=== PATIENT | male | born 1965 | race Caucasian/White ===

== ENCOUNTER 2020-11-10 13:46 | Inpatient (IN) | payer MEDICAID ==
[~2020-11-10] VITALS: Ht 175.3 cm; Wt 75.0 kg
[~2020-11-10 13:46] MED LIST: AMIO200T6 PO; ASPI-630 PO; DICY10CA3 PO; FLUT1DIS3 IH; FURO40TA4 PO; LORA0.5T96 PO; METO50TA4 PO; PANT20TA2 PO; SACU1TAB PO; SERT25TA PO; TIOT18CA IH
[2020-11-10] MEDS ORDERED: ONDANSETRON PF 4 MG/2 ML VIAL. IVP ONE (14:15)
--- NOTE | 2020-11-10 14:41 | RAD ---
XR CHEST 1V CLINICAL INDICATIONS: Shortness of breath COMPARISON: October 2020. Findings: Persistent infiltrate is seen within the lateral left lung base which is unchanged. There i s an increase in medial right lung base infiltrate. No pleural effusion or pneumothorax is seen. 3-le ad pacemaker is again evident. The heart size, pulmonary vasculature, mediastinum and both ashtyn are s table. IMPRESSION: Increase in medial right lung base infiltrate. Persistent lateral left lung base infiltra te. Electronically signed by: Will Mercado MD (11/10/2020 2:38 PM) [id number]
[2020-11-10 14:59] LABS: BASO % 0 % (0-3); EOS % 0 % (0-3); HEMOGLOBIN 14.7 g/dL (13.0-17.5); LYMPH % 12 % (24-48); MEAN CORPUSCULAR HEMOGLOBIN 33 pg (25-35); MEAN CORPUSCULAR HGB CONC 34 g/dL (31-37); MEAN CORPUSCULAR VOLUME 97 fL (79-100); MONO # 0.6 x10^3/uL (0.0-1.1); MONO % 7 % (0-9); NEUT # 7.1 x10^3/uL (1.8-7.7); NEUT % 80 % (31-73); PLATELET COUNT 264 x10^3/uL (140-400); RED BLOOD COUNT 4.52 x10^6/uL (4.30-5.70); RED CELL DISTRIBUTION WIDTH 13.2 % (11.5-14.5); WHITE BLOOD COUNT 8.9 x10^3/uL (4.0-11.0)
[2020-11-10 15:30] LABS: CALCIUM 9.4 mg/dL (8.5-10.1); CREATININE 1.3 mg/dL (0.7-1.3); GFR 57.5; POTASSIUM 5.5 mmol/L (3.5-5.1)
[2020-11-10 15:36] LABS: ALBUMIN 3.7 g/dL (3.4-5.0); ALBUMIN/GLOBULIN RATIO 1.1 (1.0-1.7); MAGNESIUM 2.2 mg/dL (1.8-2.4); TOTAL BILIRUBIN 0.8 mg/dL (0.2-1.0); TOTAL PROTEIN 7.2 g/dL (6.4-8.2)
--- NOTE | 2020-11-10 16:11 | PHYS DOC ---
Past Medical History Past Medical History: A-Fib, CAD, CHF (EF 25-30% (11/19)) Past Surgical History: Other Additional Past Surgical Histo: AICD/BACK/NECK Smoking Status: Current Every Day Smoker Alcohol Use: Heavy Drug Use: None General Adult EDM: Chief Complaint: SHORTNESS OF BREATH HPI: HPI: Patient is a 55 year old male with history of CAD, CHF EF 25-30% who presents w ith shortness of breath and chest pain. Patient states that the chest pain has been ongoing since before he was admitted in early October. He was discharged on 11/06. He was admitted for an ICD discharge it was found to be A. fib with RVR. He was initiated on amiodarone, continued on metoprolol and his home furosemide. 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 States that his shortness of breath is continuously worsened. He did feel warm, and has nausea, vomiting. No documented fevers. He has had some chills. Review of Systems: Review of Systems: Constitutional: Denies fever or chills. [] Eyes: Denies change in visual acuity. [] HENT: Reports nasal congestion. Denies sore throat [] Respiratory: Reports cough and shortness of breath [] Cardiovascular: Reports chest pain. Reports lower extremity edema.. [] GI: Reports nausea and vomiting. Denies abdominal pain, bloody stools or diarrhea. [] : Denies dysuria. [] Musculoskeletal: Denies back pain or joint pain. [] Integument: Denies rash. [] Neurologic: Denies headache, focal weakness or sensory changes. [] Endocrine: Denies polyuria or polydipsia. [] Lymphatic: Denies swollen glands. [] Psychiatric: Denies depression or anxiety. [] Heart Score: C/O Chest Pain: Yes HEART Score for Chest Pain: HEART Score for Chest Pain Response (Comments) Value History Moderately Suspicious 1 ECG Nonspecific Repolarizatio 1 Age >45 - < 65 1 Risk Factors >3 Risk Factors or Hx CAD 2 Troponin < Normal Limit 0 Total 5 Risk Factors: Risk Factors: DM, Current or recent (<one month) smoker, HTN, HLP, family history of CAD, obesity. Risk Scores: Score 0 - 3: 2.5% MACE over next 6 weeks - Discharge Home Score 4 - 6: 20.3% MACE over next 6 weeks - Admit for Clinical Observation Score 7 - 10: 72.7% MACE over next 6 weeks - Early Invasive Strategies Current Medications: Current Medications Medications (Trade) Dose Ordered Sig/Emma Start Time Stop Time Status Last Admin Dose Admin Ondansetron HCl (Zofran) 4 mg 1X ONCE 11/10/20 14:15 11/10/20 14:16 DC Allergies: Allergies: Allergies Coded Allergies Type Severity Reaction Last Updated Verified No Known Drug Allergies 10/31/20 No Physical Exam: PE: Constitutional: Appears unwell. Retching/dry heaving. [] HENT: Normocephalic, atraumatic, bilateral external ears normal, oropharynx moist, no oral exudates, nose normal. [] Eyes: PERRLA, EOMI, conjunctiva normal, no discharge. [] Neck: Normal range of motion, no tenderness, supple, no stridor. [] Cardiovascular:Heart rate regular rhythm, no murmur [] Lungs & Thorax: B/l crackles in bases. Normal work of breathing. [] Abdomen: Soft, nontender [] Skin: Warm, dry, no erythema, no rash. [] Back: No tenderness, no CVA tenderness. [] Extremities: No tenderness, no cyanosis, no clubbing, ROM intact, + bilateral lower extremity edema. [] Neurologic: Alert and oriented X 3, normal motor function, normal sensory function, no focal deficits noted. [] Psychologic: Affect normal, judgement normal, mood normal. [] Current Patient Data: Labs: Laboratory Tests Test 11/10/20 14:47 11/10/20 15:15 White Blood Count 8.9 x10^3/uL (4.0-11.0) Red Blood Count 4.52 x10^6/uL (4.30-5.70) Hemoglobin 14.7 g/dL (13.0-17.5) Hematocrit 44.0 % (39.0-53.0) Mean Corpuscular Volume 97 fL (79-100) Mean Corpuscular Hemoglobin 33 pg (25-35) Mean Corpuscular Hemoglobin Concent 34 g/dL (31-37) Red Cell Distribution Width 13.2 % (11.5-14.5) Platelet Count 264 x10^3/uL (140-400) Neutrophils (%) (Auto) 80 % (31-73) H Lymphocytes (%) (Auto) 12 % (24-48) L Monocytes (%) (Auto) 7 % (0-9) Eosinophils (%) (Auto) 0 % (0-3) Basophils (%) (Auto) 0 % (0-3) Neutrophils # (Auto) 7.1 x10^3/uL (1.8-7.7) Lymphocytes # (Auto) 1.0 x10^3/uL (1.0-4.8) Monocytes # (Auto) 0.6 x10^3/uL (0.0-1.1) Eosinophils # (Auto) 0.0 x10^3/uL (0.0-0.7) Basophils # (Auto) 0.0 x10^3/uL (0.0-0.2) Sodium Level 139 mmol/L (136-145) Potassium Level 5.5 mmol/L (3.5-5.1) H Chloride Level 102 mmol/L (98-107) Carbon Dioxide Level 30 mmol/L (21-32) Anion Gap 7 (6-14) Blood Urea Nitrogen 25 mg/dL (8-26) Creatinine 1.3 mg/dL (0.7-1.3) Estimated GFR (Cockcroft-Gault) 57.5 BUN/Creatinine Ratio 19 (6-20) Glucose Level 122 mg/dL (70-99) H Calcium Level 9.4 mg/dL (8.5-10.1) Magnesium Level 2.2 mg/dL (1.8-2.4) Total Bilirubin 0.8 mg/dL (0.2-1.0) Aspartate Amino Transferase (AST) 56 U/L (15-37) H Alanine Aminotransferase (ALT) 76 U/L (16-63) H Alkaline Phosphatase 85 U/L (46-116) Troponin I Quantitative 0.030 ng/mL (0.000-0.055) JT-Ieg-J-Type Natriuretic Peptide 28127 pg/mL (0-124) H Total Protein 7.2 g/dL (6.4-8.2) Albumin 3.7 g/dL (3.4-5.0) Albumin/Globulin Ratio 1.1 (1.0-1.7) Laboratory Tests 11/10/20 14:47 Laboratory Tests 11/10/20 15:15 Vital Signs: Vital Signs Date Time Temp Pulse Resp B/P (MAP) Pulse Ox O2 Delivery O2 Flow Rate FiO2 11/10/20 14:15 98.6 86 25 121/73 (89) 96 Nasal Cannula 2.0 98.6 EKG: EKG: Paced rhythm [] Radiology/Procedures: Radiology/Procedures: [][facility] [address] [place] [address] IMAGING REPORT Signed PATIENT: RUPERTO JEAN-BAPTISTE ACCOUNT: [id number] : 1965 LOCATION: ER AGE: 55 SEX: M EXAM STATUS: REG ER ORD. PHYSICIAN: SANG BARTON MD REASON: sob PROCEDURE: CHEST AP ONLY XR CHEST 1V CLINICAL INDICATIONS: Shortness of breath COMPARISON: October 2020. Findings: Persistent infiltrate is seen within the lateral left lung base which is unchanged. There is an increase in medial right lung base infiltrate. No pleural effusion or pneumothorax is seen. 3-lead pacemaker is again evident. The heart size, pulmonary vasculature, mediastinum and both ashtyn are stable. IMPRESSION: Increase in medial right lung base infiltrate. Persistent lateral left lung base infiltrate. Electronically signed by: Shawn Mercado MD (11/10/2020 2:38 PM) [id number] DICTATED and SIGNED BY: SHAWN MERCADO MD DATE: 11/10/20 [id number] Course & Med Decision Making: Course & Med Decision Making Pertinent Labs and Imaging studies reviewed. (See chart for details) Patient 55-year-old male with history of CAD, CHF with EF 25-30%, recent hospitalization for ICD discharges turned out to be A. fib with RVR recently started on amiodarone who presents with chest pain and shortness of breath. Shortness of breath is increased since he was discharged from the hospital on 11/06. Satting 87% on room air. Recovered to 90+ percent on 2 L/min nasal cannula. Chest x-ray appears more congested than previously. Working on IV access, but will dose with Lasix. We will trend troponin. First troponin below cutoff for NSTEMI. EKG paced. Will check Covid rapid and PCR. Given some constitutional symptoms feel he should be in a Covid PUI to begin. Re Disclaimer: Re Disclaimer: This electronic medical record was generated, in whole or in part, using a voice recognition dictation system. Departure Departure Impression: Primary Impression: Chest pain Additional Impression: Hypoxia Disposition: ADMITTED INPATIENT Admitting Physician: MARBELLA Pineda) Condition: STABLE Referrals: NO PCP (PCP) SANG BARTON MD Nov 10, 2020 16:11
[2020-11-10] MEDS ORDERED: CALCIUM CARBONATE 500 MG TAB.CHEW PO PRN (16:15)
[2020-11-10] MEDS ORDERED: ELECTROLYTE (NON-ICU) PROTOCOL. MC PRN (16:15)
[2020-11-10] MEDS: oxyCODONE/APAP 5/325 1 TAB TABLET PO PRN ×2 (16:52→20:40)
[2020-11-10 17:00] VITALS: BP 105/62
--- NOTE | 2020-11-10 17:02 | PDOC1 ---
History and Physical Date of Service: DOS: DATE: 11/10/20 TIME: 16:52 Chief Complaint: Problems: (1) Chest pain (2) Hypoxia (3) Shortness of breath Chief Complain: Chest pain, shortness of breath History of Present Illness: HPI: Patient is a 55-year-old male presenting today due to worsening shortness of breath and chest pain. Patient was recently admitted after he thought his ICD fired. He was here for several days and was found to be atrial fibrillation with RVR. 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 He was able to get his Lopressor and Lasix. History notable for CAD, CHF ejection fraction 25%. Patient says his chest pain has persisted since last admission. 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 Denies any sort of productive cough or fevers. Patient presented the emergency room found to be relatively fluid overloaded, patient also had a 2 L oxygen requirement after he was found to be saturating mid 80s on room air. Patient was denying any sort of headache, vision changes, abdominal pain, joint pain, dysuria. Past Medical/Surgical History: PMH/PSH: A. fib, CAD, CHF 25% ejection fraction Allergies: Allergies: Coded Allergies: No Known Drug Allergies (Unverified , 10/31/20) Family History: Family History: CAD, hypertension Social History: Social History: Smoker, frequent alcohol use, denies drug use Current Medications: Current Medications Current Medications Ondansetron HCl (Zofran) 4 mg 1X ONCE IVP Last administered on 11/10/20at 16:20; Start 11/10/20 at 14:15; Stop 11/10/20 at 14:16; Status DC Amiodarone HCl (Cordarone) 200 mg DAILY PO ; Start 11/11/20 at 09:00 Aspirin (Aspirin Chewable) 81 mg DAILY PO ; Start 11/11/20 at 09:00 Furosemide (Lasix) 40 mg DAILY PO ; Start 11/11/20 at 09:00 Lorazepam (Ativan) 0.5 mg PRN TID PRN PO ANXIETY / AGITATION; Start 11/10/20 at 16:15 Metoprolol Succinate (Toprol Xl) 75 mg DAILY PO ; Start 11/11/20 at 09:00 Sacubitril/ Valsartan (Entresto 24 Mg-26 Mg) 1 tab BID PO ; Start 11/10/20 at 21:00 Sertraline HCl (Zoloft) 25 mg DAILY PO ; Start 11/11/20 at 09:00 Non-Formulary Medication (Fluticasone/ Salmeterol (Advair 250-50 Diskus)) 1 puff BID IH ; Start 11/10/20 at 21:00; Status UNV Pantoprazole Sodium (Protonix) 40 mg DAILYAC PO ; Start 11/11/20 at 07:30 Non-Formulary Medication (Tiotropium Bath (Spiriva)) 1 cap DAILY IH ; Start 11/11/20 at 09:00; Status UNV Ondansetron HCl (Zofran) 4 mg PRN Q6HRS PRN IVP NAUSEA/VOMITING; Start 11/10/20 at 16:15 Calcium Carbonate/ Glycine (Tums) 500 mg PRN Q3HRS PRN PO UPSET STOMACH; Start 11/10/20 at 16:15 Zolpidem Tartrate (Ambien) 5 mg PRN QHS PRN PO INSOMNIA, MAY REPEAT IN 1HR; Start 11/10/20 at 16:15 Info (Non-Icu Electrolyte Protocol) 1 ea PRN DAILY PRN MC SEE COMMENTS; Start 11/10/20 at 16:15 Oxycodone HCl (Roxicodone) 5 mg PRN Q3HRS PRN PO BREAKTHROUGH PAIN; Start 11/10/20 at 16:15 Oxycodone/ Acetaminophen (Percocet 5/325) 1 tab PRN Q4HRS PRN PO MILD PAIN, 1ST CHOICE; Start 11/10/20 at 16:15 Oxycodone/ Acetaminophen (Percocet 5/325) 2 tab PRN Q4HRS PRN PO MODERATE PAIN, SEVERE PAIN; Start 11/10/20 at 16:15 Acetaminophen (Tylenol) 650 mg PRN Q6HRS PRN PO Headaches, Temp > 101.5F; Start 11/10/20 at 16:15 Senna/Docusate Sodium (Senna Plus) 1 tab BID PO ; Start 11/10/20 at 21:00 Enoxaparin Sodium (Lovenox 40mg Syringe) 40 mg Q24H SQ ; Start 11/10/20 at 21:00 Albuterol/ Ipratropium (Duoneb) 3 ml RTQID NEB ; Start 11/10/20 at 20:00 Budesonide (Pulmicort) 0.5 mg RTBID NEB ; Start 11/10/20 at 20:00 Active Scripts Active Ativan (Lorazepam) 0.5 Mg Tablet 0.5 Mg PO TID PRN 28 Days Amiodarone Hcl 200 Mg Tablet 200 Mg PO DAILY 30 Days Dicyclomine Hcl 10 Mg Capsule 10 Mg PO PRN QID PRN 14 Days Spiriva (Tiotropium Bath) 18 Mcg Cap.w.dev 1 Cap IH DAILY 30 Days Entresto 24 mg-26 mg Tablet (Sacubitril/Valsartan) 1 Each Tablet 1 Each PO BID 30 Days Advair 250-50 Diskus (Fluticasone/Salmeterol) 1 Each Disk.w.dev 1 Puff IH BID 30 Days Zoloft (Sertraline Hcl) 25 Mg Tablet 1 Tab PO DAILY 30 Days Protonix (Pantoprazole Sodium) 20 Mg Tablet.dr 2 Tab PO DAILY 30 Days Toprol XL (Metoprolol Succinate) 50 Mg Tab.er.24h 75 Mg PO DAILY 30 Days Furosemide 40 Mg Tablet 1 Tab PO DAILY 30 Days Reported Aspirin 81 Mg Tab.chew 1 Tab PO DAILY ROS: Review of Systems Review of System Negative unless noted in HPI Physical Exam: Vital Signs: Vital Signs Date Time Temp Pulse Resp B/P (MAP) Pulse Ox O2 Delivery O2 Flow Rate FiO2 11/10/20 15:40 84 30 117/66 (83) 96 Nasal Cannula 2.0 11/10/20 14:15 98.6 98.6 Physcial Exam: GEN: Mild distress HEENT: Normal cephalic, atraumatic, external auditory canals are patent EYES: Extraocular muscles are intact, pupil are equally round and reactive to light and accommodation MUSCULOSKELETAL: Well developed , well nourished, good range of motion ENDOCRINE: No thyromegaly was palpated LYMPHATICS: No cervical chain or axillary nodes were noted HEMATOPOIETIC: No bruising NECK: Supple, no JVD, no thyromegaly was noted LUNGS: Bibasilar crackles HEART: Irregularly irregular, peripheral pulses intact ABDOMEN: Soft, nontender. Positive bowel sounds, no organomegaly, normal bowel sounds EXTREMITIES: Bilateral lower extremity pitting edema NEUROLOGIC: Normal speech and tone. A&O x 3, moves all extremities, no obvious focal deficits PSYCHIATRIC: Normal affect, normal mood. Stable SKIN: No ulcerations or rashes, good skin turgor, no jaundice VASCULAR: Good capillary refill, neurovascular bundle appears to be intact Labs: Labs: Laboratory Tests Test 11/10/20 14:47 11/10/20 15:15 White Blood Count 8.9 x10^3/uL (4.0-11.0) Red Blood Count 4.52 x10^6/uL (4.30-5.70) Hemoglobin 14.7 g/dL (13.0-17.5) Hematocrit 44.0 % (39.0-53.0) Mean Corpuscular Volume 97 fL (79-100) Mean Corpuscular Hemoglobin 33 pg (25-35) Mean Corpuscular Hemoglobin Concent 34 g/dL (31-37) Red Cell Distribution Width 13.2 % (11.5-14.5) Platelet Count 264 x10^3/uL (140-400) Neutrophils (%) (Auto) 80 % (31-73) Lymphocytes (%) (Auto) 12 % (24-48) Monocytes (%) (Auto) 7 % (0-9) Eosinophils (%) (Auto) 0 % (0-3) Basophils (%) (Auto) 0 % (0-3) Neutrophils # (Auto) 7.1 x10^3/uL (1.8-7.7) Lymphocytes # (Auto) 1.0 x10^3/uL (1.0-4.8) Monocytes # (Auto) 0.6 x10^3/uL (0.0-1.1) Eosinophils # (Auto) 0.0 x10^3/uL (0.0-0.7) Basophils # (Auto) 0.0 x10^3/uL (0.0-0.2) Sodium Level 139 mmol/L (136-145) Potassium Level 5.5 mmol/L (3.5-5.1) Chloride Level 102 mmol/L (98-107) Carbon Dioxide Level 30 mmol/L (21-32) Anion Gap 7 (6-14) Blood Urea Nitrogen 25 mg/dL (8-26) Creatinine 1.3 mg/dL (0.7-1.3) Estimated GFR (Cockcroft-Gault) 57.5 BUN/Creatinine Ratio 19 (6-20) Glucose Level 122 mg/dL (70-99) Calcium Level 9.4 mg/dL (8.5-10.1) Magnesium Level 2.2 mg/dL (1.8-2.4) Total Bilirubin 0.8 mg/dL (0.2-1.0) Aspartate Amino Transf (AST/SGOT) 56 U/L (15-37) Alanine Aminotransferase (ALT/SGPT) 76 U/L (16-63) Alkaline Phosphatase 85 U/L (46-116) Troponin I Quantitative 0.030 ng/mL (0.000-0.055) GT-Gjd-B-Type Natriuretic Peptide 82454 pg/mL (0-124) Total Protein 7.2 g/dL (6.4-8.2) Albumin 3.7 g/dL (3.4-5.0) Albumin/Globulin Ratio 1.1 (1.0-1.7) Laboratory Tests Test 11/10/20 14:47 11/10/20 15:15 White Blood Count 8.9 x10^3/uL (4.0-11.0) Red Blood Count 4.52 x10^6/uL (4.30-5.70) Hemoglobin 14.7 g/dL (13.0-17.5) Hematocrit 44.0 % (39.0-53.0) Mean Corpuscular Volume 97 fL (79-100) Mean Corpuscular Hemoglobin 33 pg (25-35) Mean Corpuscular Hemoglobin Concent 34 g/dL (31-37) Red Cell Distribution Width 13.2 % (11.5-14.5) Platelet Count 264 x10^3/uL (140-400) Neutrophils (%) (Auto) 80 % (31-73) Lymphocytes (%) (Auto) 12 % (24-48) Monocytes (%) (Auto) 7 % (0-9) Eosinophils (%) (Auto) 0 % (0-3) Basophils (%) (Auto) 0 % (0-3) Neutrophils # (Auto) 7.1 x10^3/uL (1.8-7.7) Lymphocytes # (Auto) 1.0 x10^3/uL (1.0-4.8) Monocytes # (Auto) 0.6 x10^3/uL (0.0-1.1) Eosinophils # (Auto) 0.0 x10^3/uL (0.0-0.7) Basophils # (Auto) 0.0 x10^3/uL (0.0-0.2) Sodium Level 139 mmol/L (136-145) Potassium Level 5.5 mmol/L (3.5-5.1) Chloride Level 102 mmol/L (98-107) Carbon Dioxide Level 30 mmol/L (21-32) Anion Gap 7 (6-14) Blood Urea Nitrogen 25 mg/dL (8-26) Creatinine 1.3 mg/dL (0.7-1.3) Estimated GFR (Cockcroft-Gault) 57.5 BUN/Creatinine Ratio 19 (6-20) Glucose Level 122 mg/dL (70-99) Calcium Level 9.4 mg/dL (8.5-10.1) Magnesium Level 2.2 mg/dL (1.8-2.4) Total Bilirubin 0.8 mg/dL (0.2-1.0) Aspartate Amino Transf (AST/SGOT) 56 U/L (15-37) Alanine Aminotransferase (ALT/SGPT) 76 U/L (16-63) Alkaline Phosphatase 85 U/L (46-116) Troponin I Quantitative 0.030 ng/mL (0.000-0.055) PZ-Ulx-X-Type Natriuretic Peptide 44936 pg/mL (0-124) Total Protein 7.2 g/dL (6.4-8.2) Albumin 3.7 g/dL (3.4-5.0) Albumin/Globulin Ratio 1.1 (1.0-1.7) Assessment/Plan Assessment/Plan Chest pain and shortness of breath secondary to HFrEF 25%, medication noncompliance, tobacco abuse CAD, hypertension -Patient recently admitted for A. 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 -Consult to cardiology -Cardiac diet -Smoking cessation provided -DVT prophylaxis Justifications for Admission Other Justification TREE SANTOS MD Nov 10, 2020 17:02
--- NOTE | 2020-11-10 18:51 | EKG ---
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
[2020-11-10 19:38] VITALS: BP 135/54
[2020-11-10] MEDS ORDERED: BUDESONIDE 0.5 MG/2 ML NEBU. NEB SCH (20:00)
[2020-11-10] MEDS ORDERED: IPRATRPIUM/ALBUTEROL 0.5/2.5MG 3 ML NEBU. NEB SCH (20:00)
[2020-11-10] MEDS: ENOXAPARIN 40 MG/0.4 ML SYRINGE. SQ SCH (20:39)
[2020-11-10] MEDS: SACUBITRIL/VALSARTAN 24/26MG TABLET. PO SCH (20:39)
[2020-11-10] MEDS: ZOLPIDEM 5 MG TABLET. PO PRN (20:39)
[2020-11-10] MEDS: SENNOSIDES/DOCUSATE 8.6/50MG TABLET. PO SCH (20:39)
[2020-11-10] MEDS: oxyCODONE IR 5 MG TABLET PO PRN (20:40)
[2020-11-10] MEDS: FLUTICASONE/VILANTEROL 100/25 INHALER. INH SCH (21:00)
[2020-11-10] MEDS ORDERED: NON FORMULARY ITEM (Fluticasone/Salmeterol (Advair 250-50 Diskus) 1 PUFF) IH SCH (21:00)
[2020-11-10 23:08] VITALS: BP 105/64
[2020-11-11 02:50] VITALS: BP 114/64
[2020-11-11 07:00] VITALS: BP 108/65
[2020-11-11] MEDS: FLUTICASONE/VILANTEROL 100/25 INHALER. INH SCH (09:00)
[2020-11-11] MEDS ORDERED: NON FORMULARY ITEM (Tiotropium Bromide (Spiriva) 1 CAP) IH SCH (09:00)
[2020-11-11] MEDS: FUROSEMIDE 40 MG TABLET. PO SCH (09:25)
[2020-11-11] MEDS: SENNOSIDES/DOCUSATE 8.6/50MG TABLET. PO SCH ×2 (09:25→22:29)
[2020-11-11] MEDS: AMIODARONE HCL 200 MG TABLET. PO SCH (09:25)
[2020-11-11] MEDS: SERTRALINE 25 MG TABLET. PO SCH (09:25)
[2020-11-11] MEDS: SACUBITRIL/VALSARTAN 24/26MG TABLET. PO SCH (09:25)
[2020-11-11] MEDS: PANTOPRAZOLE 40 MG TABLET.DR. PO SCH (09:26)
[2020-11-11] MEDS: METOPROLOL SUCC 24HR ER 25 MG TAB.ER.24H. PO SCH (09:26)
[2020-11-11] MEDS: ASPIRIN CHEWABLE 81 MG TABLET. PO SCH (09:26)
--- NOTE | 2020-11-11 10:12 | PDOC ---
PROGRESS NOTES Date of Service: DATE: 11/11/20 TIME: 10:12 Chief Complaint Chief Complaint impression A. fib, CAD, k= 5.5 CHF 25% ejection fraction Patient recently admitted for APayal knapp, ejection fraction around 25% / biventricular ICD/DIFFERENTIAL REPAIRER-D implantation. Device check / normal function. 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 Consult cardiology Cardiac diet Smoking cessation encouraged / provided DVT prophylaxis History of Present Illness History of Present Illness Chief Complaint: Problems: (1) Chest pain (2) Hypoxia (3) Shortness of breath Chief Complain: Chest pain, shortness of breath History of Present Illness: HPI: Patient is a 55-year-old male presenting today due to worsening shortness of b reath and chest pain. Patient was recently admitted after he thought his ICD fired. He was here for several days and was found to be atrial fibrillation with RVR. 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 He was able to get his Lopressor and Lasix. History notable for CAD, CHF ejection fraction 25%. Patient says his chest pain has persisted since last admission. 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 Denies any sort of productive cough or fevers. Patient presented the emergency room found to be relatively fluid overloaded, patient also had a 2 L oxygen requirement after he was found to be saturating mid 80s on room air. Patient was denying any sort of headache, vision changes, abdominal pain, joint pain, dysuria. Past Medical/Surgical History: PMH/PSH: A. fib, CAD, CHF 25% ejection fraction Allergies: Allergies: Coded Allergies: No Known Drug Allergies (Unverified , 10/31/20) Family History: Family History: CAD, hypertension Social History: Social History: Smoker, frequent alcohol use, denies drug use Current Medications: Current Medications Current Medications Ondansetron HCl (Zofran) 4 mg 1X ONCE IVP Last administered on 11/10/20at 16:20; Start 11/10/20 at 14:15; Stop 11/10/20 at 14:16; Status DC Amiodarone HCl (Cordarone) 200 mg DAILY PO ; Start 11/11/20 at 09:00 Aspirin (Aspirin Chewable) 81 mg DAILY PO ; Start 11/11/20 at 09:00 Furosemide (Lasix) 40 mg DAILY PO ; Start 11/11/20 at 09:00 Lorazepam (Ativan) 0.5 mg PRN TID PRN PO ANXIETY / AGITATION; Start 11/10/20 at 16:15 Metoprolol Succinate (Toprol Xl) 75 mg DAILY PO ; Start 11/11/20 at 09:00 Sacubitril/ Valsartan (Entresto 24 Mg-26 Mg) 1 tab BID PO ; Start 11/10/20 at 21:00 Sertraline HCl (Zoloft) 25 mg DAILY PO ; Start 11/11/20 at 09:00 Non-Formulary Medication (Fluticasone/ Salmeterol (Advair 250-50 Diskus)) 1 puff BID IH ; Start 11/10/20 at 21:00; Status UNV Pantoprazole Sodium (Protonix) 40 mg DAILYAC PO ; Start 11/11/20 at 07:30 Non-Formulary Medication (Tiotropium Schuyler (Spiriva)) 1 cap DAILY IH ; Start 11/11/20 at 09:00; Status UNV Ondansetron HCl (Zofran) 4 mg PRN Q6HRS PRN IVP NAUSEA/VOMITING; Start 11/10/20 at 16:15 Calcium Carbonate/ Glycine (Tums) 500 mg PRN Q3HRS PRN PO UPSET STOMACH; Start 11/10/20 at 16:15 Zolpidem Tartrate (Ambien) 5 mg PRN QHS PRN PO INSOMNIA, MAY REPEAT IN 1HR; Start 11/10/20 at 16:15 Info (Non-Icu Electrolyte Protocol) 1 ea PRN DAILY PRN MC SEE COMMENTS; Start 11/10/20 at 16:15 Oxycodone HCl (Roxicodone) 5 mg PRN Q3HRS PRN PO BREAKTHROUGH PAIN; Start 11/10/20 at 16:15 Oxycodone/ Acetaminophen (Percocet 5/325) 1 tab PRN Q4HRS PRN PO MILD PAIN, 1ST CHOICE; Start 9/12/21 at 16:15 Oxycodone/ Acetaminophen (Percocet 5/325) 2 tab PRN Q4HRS PRN PO MODERATE PAIN, SEVERE PAIN; Start 11/10/20 at 16:15 Acetaminophen (Tylenol) 650 mg PRN Q6HRS PRN PO Headaches, Temp > 101.5F; Start 11/10/20 at 16:15 Senna/Docusate Sodium (Senna Plus) 1 tab BID PO ; Start 11/10/20 at 21:00 Enoxaparin Sodium (Lovenox 40mg Syringe) 40 mg Q24H SQ ; Start 11/10/20 at 21:00 Albuterol/ Ipratropium (Duoneb) 3 ml RTQID NEB ; Start 11/10/20 at 20:00 Budesonide (Pulmicort) 0.5 mg RTBID NEB ; Start 11/10/20 at 20:00 Active Scripts Active Ativan (Lorazepam) 0.5 Mg Tablet 0.5 Mg PO TID PRN 28 Days Amiodarone Hcl 200 Mg Tablet 200 Mg PO DAILY 30 Days Dicyclomine Hcl 10 Mg Capsule 10 Mg PO PRN QID PRN 14 Days Spiriva (Tiotropium Schuyler) 18 Mcg Cap.w.dev 1 Cap IH DAILY 30 Days Entresto 24 mg-26 mg Tablet (Sacubitril/Valsartan) 1 Each Tablet 1 Each PO BID 30 Days Advair 250-50 Diskus (Fluticasone/Salmeterol) 1 Each Disk.w.dev 1 Puff IH BID 30 Days Zoloft (Sertraline Hcl) 25 Mg Tablet 1 Tab PO DAILY 30 Days Protonix (Pantoprazole Sodium) 20 Mg Tablet.dr 2 Tab PO DAILY 30 Days Toprol XL (Metoprolol Succinate) 50 Mg Tab.er.24h 75 Mg PO DAILY 30 Days Furosemide 40 Mg Tablet 1 Tab PO DAILY 30 Days Reported Aspirin 81 Mg Tab.chew 1 Tab PO DAILY ROS: Review of Systems Review of System Negative unless noted in HPI 9-13 labs pending covid neg A. fib, CAD, CHF 25% ejection fraction Patient recently admitted for A. fib, ejection fraction around 25% / biventricular ICD/DIFFERENTIAL REPAIRER-D implantation. Device check / normal function. 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 Consult cardiology Cardiac diet Smoking cessation encouraged / provided Vitals Vitals Vital Signs Date Time Temp Pulse Resp B/P (MAP) Pulse Ox O2 Delivery O2 Flow Rate FiO2 11/11/20 09:26 85 108/65 11/11/20 07:00 97.7 22 95 Room Air 97.7 11/11/20 02:50 2.0 Physical Exam Physical Exam GEN: Mild distress HEENT: Normal cephalic, atraumatic, external auditory canals are patent EYES: Extraocular muscles are intact, pupil are equally round and reactive to light and accommodation MUSCULOSKELETAL: Well developed , well nourished, good range of motion ENDOCRINE: No thyromegaly was palpated LYMPHATICS: No cervical chain or axillary nodes were noted HEMATOPOIETIC: No bruising NECK: Supple, no JVD, no thyromegaly was noted LUNGS: Bibasilar crackles HEART: Irregularly irregular, peripheral pulses intact ABDOMEN: Soft, nontender. Positive bowel sounds, no organomegaly, normal bowel sounds EXTREMITIES: Bilateral lower extremity pitting edema NEUROLOGIC: Normal speech and tone. A&O x 3, moves all extremities, no obvious focal deficits PSYCHIATRIC: Normal affect, normal mood. Stable SKIN: No ulcerations or rashes, good skin turgor, no jaundice VASCULAR: Good capillary refill, neurovascular bundle appears to be intact General: Alert, Oriented X3, Cooperative Heart: Regular rate Lungs: Clear Abdomen: Normal bowel sounds, Soft Extremities: No clubbing, No cyanosis Labs LABS talk about your own wishes for healthcare in case youre ever not able to tell your loved ones or healthcare team what your wishes are. If you became really s ick tomorrow, would your loved ones or healthcare team know what your wishes were? Here are some examples of different sets of goals and health care directives for your conversations: My wish is to use all medical therapies including resuscitation (such as CPR) and artificial life-sustaining treatments (such as machines and medicine) in an intensive care unit, to keep me alive if at all possible. My wish is to live as long as possible, but I dont want attempts to bring me back to life if my heart and breathing stop. I would like full medical care but without using resuscitation or artificial life-sustaining intensive treatments, if these are unlikely to make me live longer or restore me to a certain quality of life. I will accept treatments that try to fix medical problems, but if Im not getting better or going to have a certain quality of life, I would want to switch to focusing only on my comfort and letting my happen naturally. My wish is for healthcare to focus on my comfort and lessen suffering. I would like medical care that focuses only on my quality of life and that allows me to naturally. Consider: What does a good quality of life mean for me? For many people, it is the ability to live independently and tell their own story. I may define it differently. Under what circumstances would I not want to be kept alive by medical treatments, resuscitation, or intensive care? What kind of changes to my health or life might make me change my mind? If I clearly am facing the last chapter of my life, how do I want the story to end? Who do I want to speak for me if I cant speak for myself? Do they understand my preferences? Are they willing to assume the role of my Durable Power of Ripshear Operator? Can I change my Goals of Care Designation? Yes, your Goals of Care Designation can be changed at any time. It should be reviewed if: your health condition changes your circumstances change (such as new understanding) you are transferred or admitted to another healthcare setting dpoa review, to pt portal 18 min and question review Laboratory Tests Test 11/10/20 14:47 11/10/20 15:15 11/10/20 16:28 White Blood Count 8.9 x10^3/uL (4.0-11.0) Red Blood Count 4.52 x10^6/uL (4.30-5.70) Hemoglobin 14.7 g/dL (13.0-17.5) Hematocrit 44.0 % (39.0-53.0) Mean Corpuscular Volume 97 fL (79-100) Mean Corpuscular Hemoglobin 33 pg (25-35) Mean Corpuscular Hemoglobin Concent 34 g/dL (31-37) Red Cell Distribution Width 13.2 % (11.5-14.5) Platelet Count 264 x10^3/uL (140-400) Neutrophils (%) (Auto) 80 % (31-73) Lymphocytes (%) (Auto) 12 % (24-48) Monocytes (%) (Auto) 7 % (0-9) Eosinophils (%) (Auto) 0 % (0-3) Basophils (%) (Auto) 0 % (0-3) Neutrophils # (Auto) 7.1 x10^3/uL (1.8-7.7) Lymphocytes # (Auto) 1.0 x10^3/uL (1.0-4.8) Monocytes # (Auto) 0.6 x10^3/uL (0.0-1.1) Eosinophils # (Auto) 0.0 x10^3/uL (0.0-0.7) Basophils # (Auto) 0.0 x10^3/uL (0.0-0.2) Sodium Level 139 mmol/L (136-145) Potassium Level 5.5 mmol/L (3.5-5.1) Chloride Level 102 mmol/L (98-107) Carbon Dioxide Level 30 mmol/L (21-32) Anion Gap 7 (6-14) Blood Urea Nitrogen 25 mg/dL (8-26) Creatinine 1.3 mg/dL (0.7-1.3) Estimated GFR (Cockcroft-Gault) 57.5 BUN/Creatinine Ratio 19 (6-20) Glucose Level 122 mg/dL (70-99) Calcium Level 9.4 mg/dL (8.5-10.1) Magnesium Level 2.2 mg/dL (1.8-2.4) Total Bilirubin 0.8 mg/dL (0.2-1.0) Aspartate Amino Transf (AST/SGOT) 56 U/L (15-37) Alanine Aminotransferase (ALT/SGPT) 76 U/L (16-63) Alkaline Phosphatase 85 U/L (46-116) Troponin I Quantitative 0.030 ng/mL (0.000-0.055) AP-Wrj-H-Type Natriuretic Peptide 80920 pg/mL (0-124) Total Protein 7.2 g/dL (6.4-8.2) Albumin 3.7 g/dL (3.4-5.0) Albumin/Globulin Ratio 1.1 (1.0-1.7) SARS-CoV-2 Antigen (Rapid) Negative (NEGATIVE) Assessment and Plan Assessmemt and Plan Problems Medical Problems: (1) Chest pain Status: Acute (2) Hypoxia Status: Acute Comment Review of Relevant I have reviewed the following items rommel (where applicable) has been applied. Labs Laboratory Tests Test 11/10/20 14:47 11/10/20 15:15 11/10/20 16:28 White Blood Count 8.9 x10^3/uL (4.0-11.0) Red Blood Count 4.52 x10^6/uL (4.30-5.70) Hemoglobin 14.7 g/dL (13.0-17.5) Hematocrit 44.0 % (39.0-53.0) Mean Corpuscular Volume 97 fL (79-100) Mean Corpuscular Hemoglobin 33 pg (25-35) Mean Corpuscular Hemoglobin Concent 34 g/dL (31-37) Red Cell Distribution Width 13.2 % (11.5-14.5) Platelet Count 264 x10^3/uL (140-400) Neutrophils (%) (Auto) 80 % (31-73) Lymphocytes (%) (Auto) 12 % (24-48) Monocytes (%) (Auto) 7 % (0-9) Eosinophils (%) (Auto) 0 % (0-3) Basophils (%) (Auto) 0 % (0-3) Neutrophils # (Auto) 7.1 x10^3/uL (1.8-7.7) Lymphocytes # (Auto) 1.0 x10^3/uL (1.0-4.8) Monocytes # (Auto) 0.6 x10^3/uL (0.0-1.1) Eosinophils # (Auto) 0.0 x10^3/uL (0.0-0.7) Basophils # (Auto) 0.0 x10^3/uL (0.0-0.2) Sodium Level 139 mmol/L (136-145) Potassium Level 5.5 mmol/L (3.5-5.1) Chloride Level 102 mmol/L (98-107) Carbon Dioxide Level 30 mmol/L (21-32) Anion Gap 7 (6-14) Blood Urea Nitrogen 25 mg/dL (8-26) Creatinine 1.3 mg/dL (0.7-1.3) Estimated GFR (Cockcroft-Gault) 57.5 BUN/Creatinine Ratio 19 (6-20) Glucose Level 122 mg/dL (70-99) Calcium Level 9.4 mg/dL (8.5-10.1) Magnesium Level 2.2 mg/dL (1.8-2.4) Total Bilirubin 0.8 mg/dL (0.2-1.0) Aspartate Amino Transf (AST/SGOT) 56 U/L (15-37) Alanine Aminotransferase (ALT/SGPT) 76 U/L (16-63) Alkaline Phosphatase 85 U/L (46-116) Troponin I Quantitative 0.030 ng/mL (0.000-0.055) HZ-Hzt-I-Type Natriuretic Peptide 87608 pg/mL (0-124) Total Protein 7.2 g/dL (6.4-8.2) Albumin 3.7 g/dL (3.4-5.0) Albumin/Globulin Ratio 1.1 (1.0-1.7) SARS-CoV-2 Antigen (Rapid) Negative (NEGATIVE) Laboratory Tests Test 11/10/20 14:47 11/10/20 15:15 11/10/20 16:28 White Blood Count 8.9 x10^3/uL (4.0-11.0) Red Blood Count 4.52 x10^6/uL (4.30-5.70) Hemoglobin 14.7 g/dL (13.0-17.5) Hematocrit 44.0 % (39.0-53.0) Mean Corpuscular Volume 97 fL (79-100) Mean Corpuscular Hemoglobin 33 pg (25-35) Mean Corpuscular Hemoglobin Concent 34 g/dL (31-37) Red Cell Distribution Width 13.2 % (11.5-14.5) Platelet Count 264 x10^3/uL (140-400) Neutrophils (%) (Auto) 80 % (31-73) Lymphocytes (%) (Auto) 12 % (24-48) Monocytes (%) (Auto) 7 % (0-9) Eosinophils (%) (Auto) 0 % (0-3) Basophils (%) (Auto) 0 % (0-3) Neutrophils # (Auto) 7.1 x10^3/uL (1.8-7.7) Lymphocytes # (Auto) 1.0 x10^3/uL (1.0-4.8) Monocytes # (Auto) 0.6 x10^3/uL (0.0-1.1) Eosinophils # (Auto) 0.0 x10^3/uL (0.0-0.7) Basophils # (Auto) 0.0 x10^3/uL (0.0-0.2) Sodium Level 139 mmol/L (136-145) Potassium Level 5.5 mmol/L (3.5-5.1) Chloride Level 102 mmol/L (98-107) Carbon Dioxide Level 30 mmol/L (21-32) Anion Gap 7 (6-14) Blood Urea Nitrogen 25 mg/dL (8-26) Creatinine 1.3 mg/dL (0.7-1.3) Estimated GFR (Cockcroft-Gault) 57.5 BUN/Creatinine Ratio 19 (6-20) Glucose Level 122 mg/dL (70-99) Calcium Level 9.4 mg/dL (8.5-10.1) Magnesium Level 2.2 mg/dL (1.8-2.4) Total Bilirubin 0.8 mg/dL (0.2-1.0) Aspartate Amino Transf (AST/SGOT) 56 U/L (15-37) Alanine Aminotransferase (ALT/SGPT) 76 U/L (16-63) Alkaline Phosphatase 85 U/L (46-116) Troponin I Quantitative 0.030 ng/mL (0.000-0.055) HU-Tcc-G-Type Natriuretic Peptide 03554 pg/mL (0-124) Total Protein 7.2 g/dL (6.4-8.2) Albumin 3.7 g/dL (3.4-5.0) Albumin/Globulin Ratio 1.1 (1.0-1.7) SARS-CoV-2 Antigen (Rapid) Negative (NEGATIVE) Medications Current Medications Ondansetron HCl (Zofran) 4 mg 1X ONCE IVP Last administered on 11/10/20at 16:20; Start 11/10/20 at 14:15; Stop 11/10/20 at 14:16; Status DC Amiodarone HCl (Cordarone) 200 mg DAILY PO Last administered on 11/11/20at 09:25; Start 11/11/20 at 09:00 Aspirin (Aspirin Chewable) 81 mg DAILY PO Last administered on 11/11/20at 09:26; Start 11/11/20 at 09:00 Furosemide (Lasix) 40 mg DAILY PO Last administered on 11/11/20at 09:25; Start 11/11/20 at 09:00 Lorazepam (Ativan) 0.5 mg PRN TID PRN PO ANXIETY / AGITATION; Start 11/10/20 at 16:15 Metoprolol Succinate (Toprol Xl) 75 mg DAILY PO Last administered on 11/11/20at 09:26; Start 11/11/20 at 09:00 Sacubitril/ Valsartan (Entresto 24 Mg-26 Mg) 1 tab BID PO Last administered on 11/11/20at 09:25; Start 11/10/20 at 21:00 Sertraline HCl (Zoloft) 25 mg DAILY PO Last administered on 11/11/20at 09:25; Start 11/11/20 at 09:00 Non-Formulary Medication (Fluticasone/ Salmeterol (Advair 250-50 Diskus)) 1 puff BID IH ; Start 11/10/20 at 21:00; Status UNV Pantoprazole Sodium (Protonix) 40 mg DAILYAC PO Last administered on 11/11/20at 09:26; Start 11/11/20 at 07:30 Non-Formulary Medication (Tiotropium Schuyler (Spiriva)) 1 cap DAILY IH ; Start 11/11/20 at 09:00; Status UNV Ondansetron HCl (Zofran) 4 mg PRN Q6HRS PRN IVP NAUSEA/VOMITING; Start 11/10/20 at 16:15 Calcium Carbonate/ Glycine (Tums) 500 mg PRN Q3HRS PRN PO UPSET STOMACH; Start 11/10/20 at 16:15 Zolpidem Tartrate (Ambien) 5 mg PRN QHS PRN PO INSOMNIA, MAY REPEAT IN 1HR Last administered on 11/10/20at 20:39; Start 11/10/20 at 16:15 Info (Non-Icu Electrolyte Protocol) 1 ea PRN DAILY PRN MC SEE COMMENTS; Start 11/10/20 at 16:15 Oxycodone HCl (Roxicodone) 5 mg PRN Q3HRS PRN PO BREAKTHROUGH PAIN Last administered on 11/10/20at 20:40; Start 11/10/20 at 16:15 Oxycodone/ Acetaminophen (Percocet 5/325) 1 tab PRN Q4HRS PRN PO MILD PAIN, 1ST CHOICE; Start 11/10/20 at 16:15 Oxycodone/ Acetaminophen (Percocet 5/325) 2 tab PRN Q4HRS PRN PO MODERATE PAIN, SEVERE PAIN Last administered on 11/10/20at 20:40; Start 11/10/20 at 16:15 Acetaminophen (Tylenol) 650 mg PRN Q6HRS PRN PO Headaches, Temp > 101.5F; Start 11/10/20 at 16:15 Senna/Docusate Sodium (Senna Plus) 1 tab BID PO Last administered on 11/11/20at 09:25; Start 11/10/20 at 21:00 Enoxaparin Sodium (Lovenox 40mg Syringe) 40 mg Q24H SQ Last administered on 11/10/20at 20:39; Start 11/10/20 at 21:00 Albuterol/ Ipratropium (Duoneb) 3 ml RTQID NEB ; Start 11/10/20 at 20:00; Stop 11/10/20 at 20:43; Status DC Budesonide (Pulmicort) 0.5 mg RTBID NEB ; Start 11/10/20 at 20:00; Stop 11/10/20 at 20:43; Status DC Fluticasone/ Vilanterol (Breo Ellipta 100-25 Mcg) 1 puff DAILY INH ; Start 11/10/20 at 21:00 Active Scripts Active Ativan (Lorazepam) 0.5 Mg Tablet 0.5 Mg PO TID PRN 28 Days Amiodarone Hcl 200 Mg Tablet 200 Mg PO DAILY 30 Days Dicyclomine Hcl 10 Mg Capsule 10 Mg PO PRN QID PRN 14 Days Spiriva (Tiotropium Schuyler) 18 Mcg Cap.w.dev 1 Cap IH DAILY 30 Days Entresto 24 mg-26 mg Tablet (Sacubitril/Valsartan) 1 Each Tablet 1 Each PO BID 30 Days Advair 250-50 Diskus (Fluticasone/Salmeterol) 1 Each Disk.w.dev 1 Puff IH BID 30 Days Zoloft (Sertraline Hcl) 25 Mg Tablet 1 Tab PO DAILY 30 Days Protonix (Pantoprazole Sodium) 20 Mg Tablet.dr 2 Tab PO DAILY 30 Days Toprol XL (Metoprolol Succinate) 50 Mg Tab.er.24h 75 Mg PO DAILY 30 Days Furosemide 40 Mg Tablet 1 Tab PO DAILY 30 Days Reported Aspirin 81 Mg Tab.chew 1 Tab PO DAILY Vitals/I & O Vital Sign - Last 24 Hours 11/10/20 11/10/20 11/10/20 11/10/20 14:15 14:40 15:40 17:00 Temp 98.6 98.2 98.6 98.2 Pulse 86 84 84 81 Resp 25 25 30 24 B/P (MAP) 121/73 (89) 124/85 (98) 117/66 (83) 105/62 (76) Pulse Ox 96 95 96 98 O2 Delivery Nasal Cannula Nasal Cannula Nasal Cannula Nasal Cannula O2 Flow Rate 2.0 2.0 2.0 2.0 11/10/20 11/10/20 11/10/20 11/10/20 19:38 20:00 20:39 20:40 Temp 98.3 98.3 Pulse 82 82 Resp 18 B/P (MAP) 135/54 (81) 135/54 Pulse Ox 90 O2 Delivery Nasal Cannula Nasal Cannula Nasal Cannula O2 Flow Rate 2.0 2.0 2.0 11/10/20 11/10/20 11/11/20 11/11/20 20:40 23:08 02:50 07:00 Temp 98.6 98.6 97.7 98.6 98.6 97.7 Pulse 83 85 85 Resp 16 16 22 B/P (MAP) 105/64 (78) 114/64 (81) 108/65 (79) Pulse Ox 96 99 95 O2 Delivery Nasal Cannula Nasal Cannula Nasal Cannula Room Air O2 Flow Rate 2.0 2.0 2.0 11/11/20 11/11/20 11/11/20 09:25 09:25 09:26 Pulse 85 85 85 B/P (MAP) 108/65 108/65 108/65 Intake and Output 11/10/20 11/10/20 11/11/20 15:00 23:00 07:00 Intake Total 600 ml 180 ml Output Total 200 ml Balance 400 ml 180 ml Justicifation of Admission Dx: Justifications for Admission: Justification of Admission Dx: Yes MONTEZ GONZALES MD Nov 11, 2020 10:12
[2020-11-11 11:00] VITALS: BP 103/67
--- NOTE | 2020-11-11 11:19 | NUR ---
SS following for discharge planning. SS reviewed pt chart and discussed with pt RN. Pt is from home and is currently requiring oxygen at two liters nasal canula. COVID19 negative. Pt has no home oxygen. Cardiology consulted. SS left message for Med Assist inquiring about Disability and Medicaid status. SS currently awaiting return call at this time. SS will continue to follow for discharge planning.
[2020-11-11] MEDS: oxyCODONE/APAP 5/325 1 TAB TABLET PO PRN ×2 (12:05→22:29)
--- NOTE | 2020-11-11 12:13 | PDOC ---
BERHANE SERRANO BONE PLANT SUPERVISOR 11/11/20 1213: CARDIO Progress Notes Date and Time Date of Service 11/11/20 Time of Evaluation 1200 Subjective Subjective: Other (SOA slightly better, doesnt feel well overall) Vitals Vitals Vital Signs Date Time Temp Pulse Resp B/P (MAP) Pulse Ox O2 Delivery O2 Flow Rate FiO2 11/11/20 11:00 98.2 74 18 103/67 (79) 98 Room Air 98.2 11/11/20 08:00 2.0 Weight Weight [ ] Input and Output Intake and Output Intake and Output 11/11/20 07:00 Intake Total 780 ml Output Total 200 ml Balance 580 ml Intake Oral 780 ml Output Urine Total 200 ml # Voids 1 # Bowel Movements 1 Laboratory Labs Laboratory Tests Test 11/10/20 14:47 11/10/20 15:15 11/10/20 16:28 White Blood Count 8.9 x10^3/uL (4.0-11.0) Red Blood Count 4.52 x10^6/uL (4.30-5.70) Hemoglobin 14.7 g/dL (13.0-17.5) Hematocrit 44.0 % (39.0-53.0) Mean Corpuscular Volume 97 fL (79-100) Mean Corpuscular Hemoglobin 33 pg (25-35) Mean Corpuscular Hemoglobin Concent 34 g/dL (31-37) Red Cell Distribution Width 13.2 % (11.5-14.5) Platelet Count 264 x10^3/uL (140-400) Neutrophils (%) (Auto) 80 % (31-73) Lymphocytes (%) (Auto) 12 % (24-48) Monocytes (%) (Auto) 7 % (0-9) Eosinophils (%) (Auto) 0 % (0-3) Basophils (%) (Auto) 0 % (0-3) Neutrophils # (Auto) 7.1 x10^3/uL (1.8-7.7) Lymphocytes # (Auto) 1.0 x10^3/uL (1.0-4.8) Monocytes # (Auto) 0.6 x10^3/uL (0.0-1.1) Eosinophils # (Auto) 0.0 x10^3/uL (0.0-0.7) Basophils # (Auto) 0.0 x10^3/uL (0.0-0.2) Sodium Level 139 mmol/L (136-145) Potassium Level 5.5 mmol/L (3.5-5.1) Chloride Level 102 mmol/L (98-107) Carbon Dioxide Level 30 mmol/L (21-32) Anion Gap 7 (6-14) Blood Urea Nitrogen 25 mg/dL (8-26) Creatinine 1.3 mg/dL (0.7-1.3) Estimated GFR (Cockcroft-Gault) 57.5 BUN/Creatinine Ratio 19 (6-20) Glucose Level 122 mg/dL (70-99) Calcium Level 9.4 mg/dL (8.5-10.1) Magnesium Level 2.2 mg/dL (1.8-2.4) Total Bilirubin 0.8 mg/dL (0.2-1.0) Aspartate Amino Transf (AST/SGOT) 56 U/L (15-37) Alanine Aminotransferase (ALT/SGPT) 76 U/L (16-63) Alkaline Phosphatase 85 U/L (46-116) Troponin I Quantitative 0.030 ng/mL (0.000-0.055) XD-Usn-E-Type Natriuretic Peptide 87905 pg/mL (0-124) Total Protein 7.2 g/dL (6.4-8.2) Albumin 3.7 g/dL (3.4-5.0) Albumin/Globulin Ratio 1.1 (1.0-1.7) SARS-CoV-2 Antigen (Rapid) Negative (NEGATIVE) Physical Exam HEENT: Neck Supple W Full Motion Chest: Symmetric LUNGS: Other (diminished bases) Heart: RRR Abdomen: Soft N/T Extremities: Other (trace bilateral LE edema ) Neurology: alert, oriented, follow commands Assessment Assessment HPI: This is a 55 yo male, with a history of NICM s/p AICD, who was seen by our service last week due ICD firing secondary to atrial flutter with RVR. Was started on antiarrhythmic therapy and metoprolol was resumed. He had been out of his medications for several months. He returns with complaints of shortness of breath. Unfortunately, patient was only able to get metoprolol and Lasix filled upon discharge. Reports that his other meds were going to cost him $1900 to fill so he was unable to get them. Entresto was previously affordable for patient. Assessment 1. Acute on chronic systolic CHF 2. 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 Device check showed normal function. 2D echo showed LVEF 25 to 30%. 3. Chest pain, atypical. Cardiac catheterization 1 year ago reportedly did not show any significant coronary disease. 4. PAFIB/flutter with RVR; presently SR. 5. Hyperkalemia Recommendations Diuresis with monitoring of renal function Hold Entresto with hyperkalemia Repeat labs Resume metoprolol for rate control Amiodarone for rhythm maintenance Eliquis for stroke prophylaxis Consider ablation with primary broadcast maintenance engineer SS consult Supportive care Justicifation of Admission Dx: Justifications for Admission: Justification of Admission Dx: Yes TIBURCIO WATT MD 11/12/202120: CARDIO Progress Notes Assessment Assessment Patient seen and examined 11/11/20. Agree wit RETAIL LOAN OFFICER's assessment and plan. Acute on chr systolic HF secondary to non compliance - continue diuresis PAF maintaining SR - continue amiodarone for rhythm maintenance and eliquis for stroke prophylaxis Consider AF ablation with primary broadcast maintenance engineer BERHANE SERRANO APRN Nov 11, 2020 12:13 TIBURCIO WATT MD Nov 12, 2020 21:21
[2020-11-11 15:00] VITALS: BP 110/71
[2020-11-11 16:38] LABS: CALCIUM 8.3 mg/dL (8.5-10.1); CREATININE 1.2 mg/dL (0.7-1.3); GFR 63.1; POTASSIUM 4.2 mmol/L (3.5-5.1)
[2020-11-11] MEDS ORDERED: FUROSEMIDE 40 MG/4 ML VIAL. IVP ONE (16:45)
[2020-11-11 19:00] VITALS: BP 92/67
[2020-11-11] MEDS: LORazepam 0.5 MG TABLET PO PRN (22:29)
[2020-11-11] MEDS: ZOLPIDEM 5 MG TABLET. PO PRN (22:29)
[2020-11-11] MEDS: ENOXAPARIN 40 MG/0.4 ML SYRINGE. SQ SCH (22:30)
[2020-11-11 23:43] VITALS: BP 101/55
[2020-11-12] VITALS (7 sets, daily range): BP systolic 90–115; BP diastolic 56–75
[2020-11-12] MEDS: SENNOSIDES/DOCUSATE 8.6/50MG TABLET. PO SCH ×2 (08:09→20:16)
[2020-11-12] MEDS: AMIODARONE HCL 200 MG TABLET. PO SCH (08:10)
[2020-11-12] MEDS: SERTRALINE 25 MG TABLET. PO SCH (08:10)
[2020-11-12] MEDS: FUROSEMIDE 40 MG TABLET. PO SCH (08:10)
[2020-11-12] MEDS: ASPIRIN CHEWABLE 81 MG TABLET. PO SCH (08:10)
[2020-11-12] MEDS: PANTOPRAZOLE 40 MG TABLET.DR. PO SCH (08:10)
[2020-11-12] MEDS: METOPROLOL SUCC 24HR ER 25 MG TAB.ER.24H. PO SCH (08:11)
[2020-11-12] MEDS: FLUTICASONE/VILANTEROL 100/25 INHALER. INH SCH (09:00)
--- NOTE | 2020-11-12 11:25 | PDOC ---
BERHANE SERRANO [employer] 11/12/20 1125: CARDIO Progress Notes Date and Time Date of Service 11/12/20 Time of Evaluation 1120 Subjective Subjective: Other (c/o abdominal and SOA presently ) Vitals Vitals Vital Signs Date Time Temp Pulse Resp B/P (MAP) Pulse Ox O2 Delivery O2 Flow Rate FiO2 11/12/20 11:10 97.9 112 20 109/75 (86) 95 Room Air 97.9 11/12/20 08:00 2.0 Weight Weight [ ] Input and Output Intake and Output Intake and Output 11/12/20 07:00 Intake Total 1600 ml Balance 1600 ml Intake Oral 1600 ml # Voids 5 Laboratory Labs Laboratory Tests Test 11/11/20 16:20 11/11/20 18:15 Sodium Level 133 mmol/L (136-145) Potassium Level 4.2 mmol/L (3.5-5.1) Chloride Level 99 mmol/L (98-107) Carbon Dioxide Level 31 mmol/L (21-32) Anion Gap 3 (6-14) Blood Urea Nitrogen 23 mg/dL (8-26) Creatinine 1.2 mg/dL (0.7-1.3) Estimated GFR (Cockcroft-Gault) 63.1 Glucose Level 119 mg/dL (70-99) Calcium Level 8.3 mg/dL (8.5-10.1) Troponin I Quantitative 0.026 ng/mL (0.000-0.055) Physical Exam HEENT: Neck Supple W Full Motion Chest: Symmetric LUNGS: Other (diminished bases) Heart: RRR Abdomen: Soft N/T Extremities: Other (trace bilateral LE edema ) Neurology: alert, oriented, follow commands Assessment Assessment 1. Acute on chronic systolic CHF; better compensated 2. Nonischemic cardiomyopathy; S/p biventricular ICD/SOD STRIPPER-D implantation. Dev ice check showed normal function. 2D echo showed LVEF 25 to 30%. 3. Chest pain, atypical. Cardiac catheterization approximately 1 year ago reportedly did not show any significant coronary disease. 4. PAFIB/flutter; presently SR. paroxysmal a-flutter noted overnight on tele. 5. Hyperkalemia; better. 6. Abdominal pain, nausea; as per GI Recommendations Will give additional dose of Lasix today Metoprolol for rate control Amiodarone for rhythm maintenance Eliquis for stroke prophylaxis Consider ablation with primary infertility nurse BRUNA following Supportive care Justicifation of Admission Dx: Justifications for Admission: Justification of Admission Dx: Yes TIBURCIO WATT MD 11/12/202122: CARDIO Progress Notes Assessment Assessment Patient seen and examined. Agree wit RECORDS MANAGEMENT SPECIALIST's assessment and plan. Acute on chr systolic HF better compensated with diuresis PAF with another episode overnight noted presently back in SR - continue amiodarone for rhythm maintenance and eliquis for stroke prophylaxis Consider AF ablation with primary infertility nurse BERHANE SERRANO APRN Nov 12, 2020 11:25 TIBURCIO WATT MD Nov 12, 2020 21:23
[2020-11-12] MEDS: ONDANSETRON PF 4 MG/2 ML VIAL. IVP PRN (13:29)
--- NOTE | 2020-11-12 13:33 | PDOC ---
PROGRESS NOTES Date of Service: DATE: 11/12/20 TIME: 13:22 Chief Complaint Chief Complaint impression A. fib, CAD, k= 5.5 CHF 25% ejection fraction Patient recently admitted for APayal knapp, ejection fraction around 25% / biventricular ICD/BOILER CLEANER-D implantation. Device check / normal function. 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 Consult cardiology Cardiac diet Smoking cessation encouraged / provided DVT prophylaxis new onset nausea, abd discomfort 11-12 Has not been on his PPI which contributes to his issues History of Present Illness History of Present Illness Chief Complaint: Problems: (1) Chest pain (2) Hypoxia (3) Shortness of breath Chief Complain: Chest pain, shortness of breath History of Present Illness: HPI: Patient is a 55-year-old male presenting today due to worsening shortness of breath and chest pain. Patient was recently admitted after he thought his ICD fired. He was here for several days and was found to be atrial fibrillation with RVR. After he discharged he was unable to warehouse order picker some of his medications, including his amiodarone, due to cost. He was able to get his Lopressor and Lasix. History notable for CAD, CHF ejection fraction 25%. Patient says his chest pain has persisted since last admission. He says it did get worse after discharge since he was unable to warehouse order picker any of his medications. Denies any sort of productive cough or fevers. Patient presented the emergency room found to be relatively fluid overloaded, patient also had a 2 L oxygen requirement after he was found to be saturating mid 80s on room air. Patient was denying any sort of headache, vision changes, abdominal pain, joint pain, dysuria. Past Medical/Surgical History: PMH/PSH: A. fib, CAD, CHF 25% ejection fraction Allergies: Allergies: Coded Allergies: No Known Drug Allergies (Unverified , 10/31/20) Family History: Family History: CAD, hypertension Social History: Social History: Smoker, frequent alcohol use, denies drug use Current Medications: Current Medications Current Medications Ondansetron HCl (Zofran) 4 mg 1X ONCE IVP Last administered on 11/10/20at 16:20; Start 11/10/20 at 14:15; Stop 11/10/20 at 14:16; Status DC Amiodarone HCl (Cordarone) 200 mg DAILY PO ; Start 11/11/20 at 09:00 Aspirin (Aspirin Chewable) 81 mg DAILY PO ; Start 11/11/20 at 09:00 Furosemide (Lasix) 40 mg DAILY PO ; Start 11/11/20 at 09:00 Lorazepam (Ativan) 0.5 mg PRN TID PRN PO ANXIETY / AGITATION; Start 11/10/20 at 16:15 Metoprolol Succinate (Toprol Xl) 75 mg DAILY PO ; Start 11/11/20 at 09:00 Sacubitril/ Valsartan (Entresto 24 Mg-26 Mg) 1 tab BID PO ; Start 11/10/20 at 21:00 Sertraline HCl (Zoloft) 25 mg DAILY PO ; Start 11/11/20 at 09:00 Non-Formulary Medication (Fluticasone/ Salmeterol (Advair 250-50 Diskus)) 1 puff BID IH ; Start 11/10/20 at 21:00; Status UNV Pantoprazole Sodium (Protonix) 40 mg DAILYAC PO ; Start 11/11/20 at 07:30 Non-Formulary Medication (Tiotropium Fish[place] Eddy (Spiriva)) 1 cap DAILY IH ; Start 11/11/20 at 09:00; Status UNV Ondansetron HCl (Zofran) 4 mg PRN Q6HRS PRN IVP NAUSEA/VOMITING; Start 11/10/20 at 16:15 Calcium Carbonate/ Glycine (Tums) 500 mg PRN Q3HRS PRN PO UPSET STOMACH; Start 11/10/20 at 16:15 Zolpidem Tartrate (Ambien) 5 mg PRN QHS PRN PO INSOMNIA, MAY REPEAT IN 1HR; Start 11/10/20 at 16:15 Info (Non-Icu Electrolyte Protocol) 1 ea PRN DAILY PRN MC SEE COMMENTS; Start 11/10/20 at 16:15 Oxycodone HCl (Roxicodone) 5 mg PRN Q3HRS PRN PO BREAKTHROUGH PAIN; Start 11/10/20 at 16:15 Oxycodone/ Acetaminophen (Percocet 5/325) 1 tab PRN Q4HRS PRN PO MILD PAIN, 1ST CHOICE; Start 11/10/20 at 16:15 Oxycodone/ Acetaminophen (Percocet 5/325) 2 tab PRN Q4HRS PRN PO MODERATE PAIN, SEVERE PAIN; Start 11/10/20 at 16:15 Acetaminophen (Tylenol) 650 mg PRN Q6HRS PRN PO Headaches, Temp > 101.5F; Start 11/10/20 at 16:15 Senna/Docusate Sodium (Senna Plus) 1 tab BID PO ; Start 11/10/20 at 21:00 Enoxaparin Sodium (Lovenox 40mg Syringe) 40 mg Q24H SQ ; Start 11/10/20 at 21:00 Albuterol/ Ipratropium (Duoneb) 3 ml RTQID NEB ; Start 11/10/20 at 20:00 Budesonide (Pulmicort) 0.5 mg RTBID NEB ; Start 11/10/20 at 20:00 Active Scripts Active Ativan (Lorazepam) 0.5 Mg Tablet 0.5 Mg PO TID PRN 28 Days Amiodarone Hcl 200 Mg Tablet 200 Mg PO DAILY 30 Days Dicyclomine Hcl 10 Mg Capsule 10 Mg PO PRN QID PRN 14 Days Spiriva (Tiotropium Fish[place] Eddy) 18 Mcg Cap.w.dev 1 Cap IH DAILY 30 Days Entresto 24 mg-26 mg Tablet (Sacubitril/Valsartan) 1 Each Tablet 1 Each PO BID 30 Days Advair 250-50 Diskus (Fluticasone/Salmeterol) 1 Each Disk.w.dev 1 Puff IH BID 30 Days Zoloft (Sertraline Hcl) 25 Mg Tablet 1 Tab PO DAILY 30 Days Protonix (Pantoprazole Sodium) 20 Mg Tablet.dr 2 Tab PO DAILY 30 Days Toprol XL (Metoprolol Succinate) 50 Mg Tab.er.24h 75 Mg PO DAILY 30 Days Furosemide 40 Mg Tablet 1 Tab PO DAILY 30 Days Reported Aspirin 81 Mg Tab.chew 1 Tab PO DAILY ROS: Review of Systems Review of System Negative unless noted in HPI 9-13 labs pending covid neg A. fib, CAD, CHF 25% ejection fraction Patient recently admitted for A. fib, ejection fraction around 25% / biventricu lar ICD/BOILER CLEANER-D implantation. Device check / normal function. 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 Consult cardiology Cardiac diet Smoking cessation encouraged / provided 11-12 labs pending covid neg abdominal discomfort, nausea new 11-03 ct Gallbladder wall thickening and pericholecystic fluid, which could represent acute cholecystitis. No radiopaque stones are seen by CT. Correlate with laboratory values. If there is persistent concern for choledocholithiasis, MRI could be obtained. GI CONSULTED SONO ORDERED, NPO A. fib, CAD, CHF 25% ejection fraction Patient recently admitted for A. fib, ejection fraction around 25% / biventricular ICD/BOILER CLEANER-D implantation. Device check / normal function. 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 Consult cardiology Cardiac diet Smoking cessation encouraged / provided Has not been on his PPI / contributes to his PAIN Vitals Vitals Vital Signs Date Time Temp Pulse Resp B/P (MAP) Pulse Ox O2 Delivery O2 Flow Rate FiO2 11/12/20 11:10 97.9 112 20 109/75 (86) 95 Room Air 97.9 11/12/20 08:00 2.0 Physical Exam Physical Exam GEN: Mild distress HEENT: Normal cephalic, atraumatic, external auditory canals are patent EYES: Extraocular muscles are intact, pupil are equally round and reactive to light and accommodation MUSCULOSKELETAL: Well developed , well nourished, good range of motion ENDOCRINE: No thyromegaly was palpated LYMPHATICS: No cervical chain or axillary nodes were noted HEMATOPOIETIC: No bruising NECK: Supple, no JVD, no thyromegaly was noted LUNGS: Bibasilar crackles HEART: Irregularly irregular, peripheral pulses intact ABDOMEN: MILDLY tender. Positive bowel sounds, no organomegaly, normal bowel sounds EXTREMITIES: Bilateral lower extremity pitting edema NEUROLOGIC: Normal speech and tone. A&O x 3, moves all extremities, no obvious focal deficits PSYCHIATRIC: Normal affect, normal mood. Stable SKIN: No ulcerations or rashes, good skin turgor, no jaundice VASCULAR: Good capillary refill, neurovascular bundle appears to be intact General: Alert, Oriented X3, Cooperative, mild distress Heart: Regular rate, Normal S1 Lungs: Clear Abdomen: Normal bowel sounds, Soft Extremities: No clubbing, No cyanosis Labs LABS PATIENT: RUPERTO JEAN-BAPTISTE ACCOUNT: [id number] : 1965 LOCATION: [address] [place] [address] AGE: 55 SEX: M EXAM STATUS: ADM IN ORD. PHYSICIAN: MONTEZ GONZALES MD REASON: PAIN PROCEDURE: ACUTE ABDOMEN SERIES EXAM: Abdomen series. HISTORY: Pain. COMPARISON: CT dated 11/03/2020. FINDINGS: A frontal view of the chest and frontal upright and supine views of the abdomen are obtained. There is no infiltrate, pleural effusion or pneumothorax. There is lingular atelectasis or scarring. There is mild cardiomegaly. There is a cardiac pacemaker defibrillator in expected position. There is a small fat-containing right diaphragmatic hernia. There is internal fixation of a healed left clavicle fracture. There is a small amount of gas and stool within the colon. There are prominent air-filled loops of bowel within the left upper quadrant and left midabdomen. No transition point is seen to suggest obstruction. There is degenerative change involving the lower lumbar spine. IMPRESSION: 1. No acute pulmonary finding. 2. Cardiomegaly. 3. Nonspecific air-filled bowel within the left upper and mid abdomen. There is no convincing transition point to suggest obstruction. Electronically signed by: Alessandra Gray MD (11/12/2020 3:09 PM) [id number] DICTATED and SIGNED BY: ALESSANDRA GRAY MD DATE: 11/12/20 [id number] 0 ower chest: The visualized lower lungs are aerated. No pleural or pericardial effusion. Moderate-sized fat-containing right Bochdalek hernia. Cardiomegaly. ABDOMEN: Liver: The noncontrast liver is homogeneous in attenuation. Gallbladder and biliary: Gallbladder wall thickening and pericholecystic fluid. Normal caliber bile ducts. Spleen: Normal spleen. Pancreas: The noncontrast pancreas is homogeneous in attenuation without p eripancreatic inflammatory changes. Adrenal glands: Normal adrenal glands. Kidneys and ureters: Nonobstructive right renal 3 mm calculus. No hydronephrosis. GI tract: Normal stomach. Normal caliber small bowel and colon. Normal appendix. Vascular structures: Normal caliber abdominal aorta. Moderate aortoiliac atherosclerotic disease. Lymph nodes: No lymphadenopathy in the abdomen or pelvis. PELVIS: Genitourinary system: Circumferential bladder wall thickening SKELETAL STRUCTURES AND SOFT TISSUES: Degenerative changes of the spine Moderate-sized left inguinal hernia containing fat. IMPRESSION: 1. Gallbladder wall thickening and pericholecystic fluid, which could represent acute cholecystitis. No radiopaque stones are seen by CT. Correlate with labor atory values. If there is persistent concern for choledocholithiasis, MRI could be obtained. 2. Circumferential bladder wall thickening, which could relate to underdistention or potentially cystitis. 3. Nonobstructive right renal 3 mm calculus. Electronically signed by: Maria Fernanda Martinez MD (11/04/2020 10:02 AM) [id number] DICTATED and SIGNED BY: MARIA FERNANDA MARTINEZ MD DATE: 11/04/20 [id number] 0 Laboratory Tests Test 11/11/20 16:20 11/11/20 18:15 Sodium Level 133 mmol/L (136-145) Potassium Level 4.2 mmol/L (3.5-5.1) Chloride Level 99 mmol/L (98-107) Carbon Dioxide Level 31 mmol/L (21-32) Anion Gap 3 (6-14) Blood Urea Nitrogen 23 mg/dL (8-26) Creatinine 1.2 mg/dL (0.7-1.3) Estimated GFR (Cockcroft-Gault) 63.1 Glucose Level 119 mg/dL (70-99) Calcium Level 8.3 mg/dL (8.5-10.1) Troponin I Quantitative 0.026 ng/mL (0.000-0.055) Assessment and Plan Assessmemt and Plan Problems Medical Problems: (1) Chest pain Status: Acute (2) Hypoxia Status: Acute Comment Review of Relevant I have reviewed the following items rommel (where applicable) has been applied. Labs Laboratory Tests Test 11/10/20 14:47 11/10/20 15:15 11/10/20 16:28 11/11/20 16:20 White Blood Count 8.9 x10^3/uL (4.0-11.0) Red Blood Count 4.52 x10^6/uL (4.30-5.70) Hemoglobin 14.7 g/dL (13.0-17.5) Hematocrit 44.0 % (39.0-53.0) Mean Corpuscular Volume 97 fL (79-100) Mean Corpuscular Hemoglobin 33 pg (25-35) Mean Corpuscular Hemoglobin Concent 34 g/dL (31-37) Red Cell Distribution Width 13.2 % (11.5-14.5) Platelet Count 264 x10^3/uL (140-400) Neutrophils (%) (Auto) 80 % (31-73) Lymphocytes (%) (Auto) 12 % (24-48) Monocytes (%) (Auto) 7 % (0-9) Eosinophils (%) (Auto) 0 % (0-3) Basophils (%) (Auto) 0 % (0-3) Neutrophils # (Auto) 7.1 x10^3/uL (1.8-7.7) Lymphocytes # (Auto) 1.0 x10^3/uL (1.0-4.8) Monocytes # (Auto) 0.6 x10^3/uL (0.0-1.1) Eosinophils # (Auto) 0.0 x10^3/uL (0.0-0.7) Basophils # (Auto) 0.0 x10^3/uL (0.0-0.2) Sodium Level 139 mmol/L (136-145) 133 mmol/L (136-145) Potassium Level 5.5 mmol/L (3.5-5.1) 4.2 mmol/L (3.5-5.1) Chloride Level 102 mmol/L (98-107) 99 mmol/L (98-107) Carbon Dioxide Level 30 mmol/L (21-32) 31 mmol/L (21-32) Anion Gap 7 (6-14) 3 (6-14) Blood Urea Nitrogen 25 mg/dL (8-26) 23 mg/dL (8-26) Creatinine 1.3 mg/dL (0.7-1.3) 1.2 mg/dL (0.7-1.3) Estimated GFR (Cockcroft-Gault) 57.5 63.1 BUN/Creatinine Ratio 19 (6-20) Glucose Level 122 mg/dL (70-99) 119 mg/dL (70-99) Calcium Level 9.4 mg/dL (8.5-10.1) 8.3 mg/dL (8.5-10.1) Magnesium Level 2.2 mg/dL (1.8-2.4) Total Bilirubin 0.8 mg/dL (0.2-1.0) Aspartate Amino Transf (AST/SGOT) 56 U/L (15-37) Alanine Aminotransferase (ALT/SGPT) 76 U/L (16-63) Alkaline Phosphatase 85 U/L (46-116) Troponin I Quantitative 0.030 ng/mL (0.000-0.055) SK-Rsp-N-Type Natriuretic Peptide 98051 pg/mL (0-124) Total Protein 7.2 g/dL (6.4-8.2) Albumin 3.7 g/dL (3.4-5.0) Albumin/Globulin Ratio 1.1 (1.0-1.7) SARS-CoV-2 RNA (DIMITRY) Negative (Negative) SARS-CoV-2 Antigen (Rapid) Negative (NEGATIVE) Test 11/11/20 18:15 Troponin I Quantitative 0.026 ng/mL (0.000-0.055) Laboratory Tests Test 11/11/20 16:20 11/11/20 18:15 Sodium Level 133 mmol/L (136-145) Potassium Level 4.2 mmol/L (3.5-5.1) Chloride Level 99 mmol/L (98-107) Carbon Dioxide Level 31 mmol/L (21-32) Anion Gap 3 (6-14) Blood Urea Nitrogen 23 mg/dL (8-26) Creatinine 1.2 mg/dL (0.7-1.3) Estimated GFR (Cockcroft-Gault) 63.1 Glucose Level 119 mg/dL (70-99) Calcium Level 8.3 mg/dL (8.5-10.1) Troponin I Quantitative 0.026 ng/mL (0.000-0.055) Medications Current Medications Ondansetron HCl (Zofran) 4 mg 1X ONCE IVP Last administered on 11/10/20at 16:20; Start 11/10/20 at 14:15; Stop 11/10/20 at 14:16; Status DC Amiodarone HCl (Cordarone) 200 mg DAILY PO Last administered on 11/12/20at 08:10; Start 11/11/20 at 09:00 Aspirin (Aspirin Chewable) 81 mg DAILY PO Last administered on 11/12/20at 08:10; Start 11/11/20 at 09:00 Furosemide (Lasix) 40 mg DAILY PO Last administered on 11/12/20at 08:10; Start 11/11/20 at 09:00 Lorazepam (Ativan) 0.5 mg PRN TID PRN PO ANXIETY / AGITATION Last administered on 11/11/20at 22:29; Start 11/10/20 at 16:15 Metoprolol Succinate (Toprol Xl) 75 mg DAILY PO Last administered on 11/12/20 08:11; Start 11/11/20 at 09:00 Sacubitril/ Valsartan (Entresto 24 Mg-26 Mg) 1 tab BID PO Last administered on 11/11/20at 09:25; Start 11/10/20 at 21:00; Stop 11/11/20 at 16:33; Status DC Sertraline HCl (Zoloft) 25 mg DAILY PO Last administered on 11/12/20at 08:10; Start 11/11/20 at 09:00 Non-Formulary Medication (Fluticasone/ Salmeterol (Advair 250-50 Diskus)) 1 puff BID IH ; Start 11/10/20 at 21:00; Status UNV Pantoprazole Sodium (Protonix) 40 mg DAILYAC PO Last administered on 11/12/20at 08:10; Start 11/11/20 at 07:30 Non-Formulary Medication (Tiotropium Fishs Eddy (Spiriva)) 1 cap DAILY IH ; Start 11/11/20 at 09:00; Status UNV Ondansetron HCl (Zofran) 4 mg PRN Q6HRS PRN IVP NAUSEA/VOMITING; Start 11/10/20 at 16:15 Calcium Carbonate/ Glycine (Tums) 500 mg PRN Q3HRS PRN PO UPSET STOMACH; Start 11/10/20 at 16:15 Zolpidem Tartrate (Ambien) 5 mg PRN QHS PRN PO INSOMNIA, MAY REPEAT IN 1HR Last administered on 11/11/20at 22:29; Start 11/10/20 at 16:15 Info (Non-Icu Electrolyte Protocol) 1 ea PRN DAILY PRN MC SEE COMMENTS; Start 11/10/20 at 16:15 Oxycodone HCl (Roxicodone) 5 mg PRN Q3HRS PRN PO BREAKTHROUGH PAIN Last administered on 11/10/20at 20:40; Start 11/10/20 at 16:15 Oxycodone/ Acetaminophen (Percocet 5/325) 1 tab PRN Q4HRS PRN PO MILD PAIN, 1ST CHOICE Last administered on 11/11/20at 22:29; Start 11/10/20 at 16:15 Oxycodone/ Acetaminophen (Percocet 5/325) 2 tab PRN Q4HRS PRN PO MODERATE PAIN, SEVERE PAIN Last administered on 11/11/20at 12:05; Start 11/10/20 at 16:15 Acetaminophen (Tylenol) 650 mg PRN Q6HRS PRN PO Headaches, Temp > 101.5F; Start 11/10/20 at 16:15 Senna/Docusate Sodium (Senna Plus) 1 tab BID PO Last administered on 11/12/20at 08:09; Start 11/10/20 at 21:00 Enoxaparin Sodium (Lovenox 40mg Syringe) 40 mg Q24H SQ Last administered on 11/11/20at 22:30; Start 11/10/20 at 21:00 Albuterol/ Ipratropium (Duoneb) 3 ml RTQID NEB ; Start 11/10/20 at 20:00; Stop 11/10/20 at 20:43; Status DC Budesonide (Pulmicort) 0.5 mg RTBID NEB ; Start 11/10/20 at 20:00; Stop 11/10/20 at 20:43; Status DC Fluticasone/ Vilanterol (Breo Ellipta 100-25 Mcg) 1 puff DAILY INH Last administered on 11/12/20at 09:00; Start 11/10/20 at 21:00 Furosemide (Lasix) 40 mg 1X ONCE IVP Last administered on 11/11/20at 17:20; Start 11/11/20 at 16:45; Stop 11/11/20 at 16:46; Status DC Active Scripts Active Ativan (Lorazepam) 0.5 Mg Tablet 0.5 Mg PO TID PRN 28 Days Amiodarone Hcl 200 Mg Tablet 200 Mg PO DAILY 30 Days Dicyclomine Hcl 10 Mg Capsule 10 Mg PO PRN QID PRN 14 Days Spiriva (Tiotropium Fishs Eddy) 18 Mcg Cap.w.dev 1 Cap IH DAILY 30 Days Entresto 24 mg-26 mg Tablet (Sacubitril/Valsartan) 1 Each Tablet 1 Each PO BID 30 Days Advair 250-50 Diskus (Fluticasone/Salmeterol) 1 Each Disk.w.dev 1 Puff IH BID 30 Days Zoloft (Sertraline Hcl) 25 Mg Tablet 1 Tab PO DAILY 30 Days Protonix (Pantoprazole Sodium) 20 Mg Tablet.dr 2 Tab PO DAILY 30 Days Toprol XL (Metoprolol Succinate) 50 Mg Tab.er.24h 75 Mg PO DAILY 30 Days Furosemide 40 Mg Tablet 1 Tab PO DAILY 30 Days Reported Aspirin 81 Mg Tab.chew 1 Tab PO DAILY Vitals/I & O Vital Sign - Last 24 Hours 11/11/20 11/11/20 11/11/20 11/11/20 15:00 19:00 20:00 23:43 Temp 97.3 98.1 98.1 97.3 98.1 98.1 Pulse 77 73 113 Resp 18 18 17 B/P (MAP) 110/71 (84) 92/67 (75) 101/55 (70) Pulse Ox 98 95 98 O2 Delivery Room Air Room Air Nasal Cannula Room Air O2 Flow Rate 2.0 11/12/20 11/12/20 11/12/20 11/12/20 02:02 07:30 08:00 08:06 Temp 98.0 98.1 98.1 98.0 98.1 98.1 Pulse 111 109 109 Resp 17 18 B/P (MAP) 91/60 (70) 115/63 (80) 115/63 (80) Pulse Ox 95 93 93 O2 Delivery Room Air Room Air Nasal Cannula Room Air O2 Flow Rate 2.0 11/12/20 11/12/20 11/12/20 08:10 08:11 11:10 Temp 97.9 97.9 Pulse 109 109 112 Resp 20 B/P (MAP) 115/63 115/63 109/75 (86) Pulse Ox 95 O2 Delivery Room Air Intake and Output 11/11/20 11/11/20 11/12/20 15:00 23:00 07:00 Intake Total 900 ml 700 ml Balance 900 ml 700 ml Justicifation of Admission Dx: Justifications for Admission: Justification of Admission Dx: Yes MONTEZ GONZALES MD Nov 12, 2020 13:32
--- NOTE | 2020-11-12 13:57 | PDOC ---
Date of Service: DATE: 11/12/20 TIME: 13:45 Subjective: Subjective: Says back to the hospital with "the same stuff." Says "I couldn't breathe." Also mentions vomiting, not being able to eat (though was able to eat for a couple days after discharge). Was unable to fill all of the prescriptions he was given at discharge on 11/06/20 due to cost. Did not get PPI. Says no one every told him he could buy a PPI (like Prilosec) OTC. He also says no one ever talked to him about his gallbladder tests. He lives in [place] and says he plans to drive back there as soon as he can but he has to go to [place] for a couple weeks first for family issues. Currently has abdominal pain (all over, constant) and says he is not eating but has tolerated some liquids today. "I keep having panic attacks." Objective: Objective: Please seen GI consult from 11/03 and following progress notes through 11/06/20. We saw him for atypical chest pain, GERD, and abnormal GB imaging (as above - no cholecystitis on HIDA). Advised to resume pantoprazole on DC and consider outpt EGD. H/o NICM, A Fib, and non-compliance. Vital Signs: Vital Signs Date Time Temp Pulse Resp B/P (MAP) Pulse Ox O2 Delivery O2 Flow Rate FiO2 11/12/20 11:10 97.9 112 20 109/75 (86) 95 Room Air 97.9 11/12/20 08:00 2.0 Labs: Laboratory Tests Test 11/11/20 16:20 11/11/20 18:15 Sodium Level 133 mmol/L Potassium Level 4.2 mmol/L Chloride Level 99 mmol/L Carbon Dioxide Level 31 mmol/L Anion Gap 3 Blood Urea Nitrogen 23 mg/dL Creatinine 1.2 mg/dL Estimated GFR (Cockcroft-Gault) 63.1 Glucose Level 119 mg/dL Calcium Level 8.3 mg/dL Troponin I Quantitative 0.026 ng/mL Imaging: Echocardiogram 11/01 <Conclusion> The left ventricular systolic function is moderately to severely impaired. The Ejection Fraction is 25-30%. Moderate mitral regurgitation. Moderate tricuspid regurgitation. There is no evidence of significant pericardial effusion. Abd US 11/02 IMPRESSION: 1. Distended gallbladder with pericholecystic fluid or wall thickening. Additionally there is common bile duct dilatation. An obstructing stone or lesion is not identified. Differential considerations include choledocholithiasis or an obstructing mass. Initial further evaluation with CT of the abdomen and pelvis (ideally with contrast if possible) is recommended 2. Normal sonographic appearance the liver. 3. No right-sided hydronephrosis CT A/P 11/04 IMPRESSION: 1. Gallbladder wall thickening and pericholecystic fluid, which could represent acute cholecystitis. No radiopaque stones are seen by CT. Correlate with laboratory values. If there is persistent concern for choledocholithiasis, MRI could be obtained. 2. Circumferential bladder wall thickening, which could relate to underdistention or potentially cystitis. 3. Nonobstructive right renal 3 mm calculus. HIDA 11/05 IMPRESSION: * No evidence of acute cholecystitis. * The patient requested that the study be terminated prior to visualization of activity within the small bowel. The lack of small bowel activity could be secondary to the study being prematurely terminated but cannot exclude bile duct obstruction given this finding and if the patient can tolerate the exam could be reattempted at a later time. CXR 11/10 IMPRESSION: Increase in medial right lung base infiltrate. Persistent lateral left lung base infiltrate. PE: GEN: NAD, laying on left side HEENT: Atraumatic, keeps eyes closed LUNGS: CTAB HEART: irregular ABD: NABS, S/ND, non-tender to light palpation EXTREMITY: No edema SKIN: No rashes, no jaundice NEURO/PSYCH: A & O 3, grumpy A/P: SOA, non-compliance CHF, A Fib, NICM Nausea, abd pain, h/o GERD, atypical chest pain Mildly elevated AST and ALT, COVID negative CRC screen - possibly had colonoscopy <5 years ago Daily alcohol Anxiety -- Imaging from last week as above. Encouraged compliance w/ PPI - discussed OTC options in detail if unable to fill PPI Rx. Justicifation of Admission Dx: Justifications for Admission: Justification of Admission Dx: Yes GEOVANNI PASTOR Nov 12, 2020 13:57
[2020-11-12 15:09] LABS: BASO % 1 % (0-3); EOS # 0.1 x10^3/uL (0.0-0.7); EOS % 1 % (0-3); HEMATOCRIT 44.7 % (39.0-53.0); HEMOGLOBIN 14.9 g/dL (13.0-17.5); LYMPH # 1.1 x10^3/uL (1.0-4.8); LYMPH % 14 % (24-48); MEAN CORPUSCULAR HEMOGLOBIN 32 pg (25-35); MEAN CORPUSCULAR HGB CONC 33 g/dL (31-37); MEAN CORPUSCULAR VOLUME 97 fL (79-100); MONO # 0.5 x10^3/uL (0.0-1.1); MONO % 7 % (0-9); NEUT # 5.9 x10^3/uL (1.8-7.7); NEUT % 77 % (31-73); PLATELET COUNT 341 x10^3/uL (140-400); RED BLOOD COUNT 4.62 x10^6/uL (4.30-5.70); WHITE BLOOD COUNT 7.7 x10^3/uL (4.0-11.0)
--- NOTE | 2020-11-12 15:11 | RAD ---
EXAM: Abdomen series. HISTORY: Pain. COMPARISON: CT dated 11/03/2020. FINDINGS: A frontal view of the chest and frontal upright and supine views of the abdomen are obtaine d. There is no infiltrate, pleural effusion or pneumothorax. There is lingular atelectasis or scarrin g. There is mild cardiomegaly. There is a cardiac pacemaker defibrillator in expected position. There is a small fat-containing right diaphragmatic hernia. There is internal fixation of a healed left cl avicle fracture. There is a small amount of gas and stool within the colon. There are prominent air-filled loops of vivienne wel within the left upper quadrant and left midabdomen. No transition point is seen to suggest obstru ction. There is degenerative change involving the lower lumbar spine. IMPRESSION: 1. No acute pulmonary finding. 2. Cardiomegaly. 3. Nonspecific air-filled bowel within the left upper and mid abdomen. There is no convincing transit ion point to suggest obstruction. Electronically signed by: Alessandra Simon MD (11/12/2020 3:09 PM) [id number]
[2020-11-12 15:14] LABS: ALBUMIN 3.3 g/dL (3.4-5.0); CALCIUM 8.3 mg/dL (8.5-10.1); CREATININE 1.2 mg/dL (0.7-1.3); GFR 63.1; POTASSIUM 4.8 mmol/L (3.5-5.1); TOTAL BILIRUBIN 0.5 mg/dL (0.2-1.0); TOTAL PROTEIN 6.7 g/dL (6.4-8.2)
--- NOTE | 2020-11-12 15:59 | NUR ---
SS following up with discharge planning. SS reviewed pt chart and discussed with pt RN. Pt is currently on room air. COVID19 negative. GI and Cardiology following. Med Assist following. Pt has disability. SS will continue to follow for discharge planning.
[2020-11-12] MEDS ORDERED: FUROSEMIDE 40 MG/4 ML VIAL. IVP ONE (16:15)
--- NOTE | 2020-11-12 16:15 | RAD ---
EXAM: RIGHT UPPER QUADRANT ULTRASOUND. HISTORY: Right upper quadrant pain. COMPARISON: 11/03/2020. FINDINGS: Sonographic evaluation of the right upper quadrant was performed. Visualization was limited by patient tenderness. The liver appears normal in parenchymal echotexture. There are no focal lesions. The hepatic veins an d inferior vena cava are distended. The gallbladder is contracted. Suggested mild wall thickening is likely from nondistention. No stones or pericholecystic fluid are seen. There is no sonographic Peters sign. The common duct measures 8 mm. There is some echogenic material versus artifact within the distal common duct. Limited images of the visualized portions of the head of the pancreas reveal no abnormality. The right kidney measures at least 9.6 cm. Cortical thickness and echogenicity are preserved. There i s no hydronephrosis. The visualized portions of the abdominal aorta are grossly patent and normal in caliber. IMPRESSION: 1. The common duct is mildly dilated and contains some echogenic material. This may reflect artifact or choledocholithiasis. MRCP could further evaluate if the diagnosis is unclear. 2. Distention of the inferior vena cava and hepatic veins is consistent with hepatic venous congestio n. Mild gallbladder wall thickening likely reflects systemic edema in this setting. Electronically signed by: Belen Llanes MD (11/12/2020 4:13 PM) [facility]
[2020-11-12] MEDS: ENOXAPARIN 40 MG/0.4 ML SYRINGE. SQ SCH (20:16)
[2020-11-12] MEDS: oxyCODONE/APAP 5/325 1 TAB TABLET PO PRN (20:16)
[2020-11-12] MEDS: LORazepam 0.5 MG TABLET PO PRN (20:16)
[2020-11-13 02:00] VITALS: BP 109/68
[2020-11-13] MEDS: oxyCODONE IR 5 MG TABLET PO PRN (02:38)
[2020-11-13 07:00] VITALS: BP 90/69
[2020-11-13] MEDS: SENNOSIDES/DOCUSATE 8.6/50MG TABLET. PO SCH ×2 (09:00→20:46)
[2020-11-13] MEDS: ASPIRIN CHEWABLE 81 MG TABLET. PO SCH (09:44)
[2020-11-13] MEDS: PANTOPRAZOLE 40 MG TABLET.DR. PO SCH (09:44)
[2020-11-13] MEDS: METOPROLOL SUCC 24HR ER 25 MG TAB.ER.24H. PO SCH (09:45)
[2020-11-13] MEDS: FLUTICASONE/VILANTEROL 100/25 INHALER. INH SCH (09:46)
[2020-11-13] MEDS: FUROSEMIDE 40 MG TABLET. PO SCH (09:46)
[2020-11-13] MEDS: SERTRALINE 25 MG TABLET. PO SCH (09:46)
[2020-11-13] MEDS: AMIODARONE HCL 200 MG TABLET. PO SCH (09:46)
--- NOTE | 2020-11-13 10:06 | PDOC ---
PROGRESS NOTES Date of Service: DATE: 11/13/20 TIME: 10:04 Chief Complaint Chief Complaint impression A. fib, CAD, k= 5.5 CHF 25% ejection fraction Patient recently admitted for APayal knapp, ejection fraction around 25% / biventricular ICD/[employer]-D implantation. Device check / normal function. Discharged however was unable to hop picker most of his medications; symptoms have only worsened since that discharge she says fluid overloaded on presentation shortness of breath on presentation check Covid resume home medications as they were prescribed at recent discharge. Consult cardiology Cardiac diet Smoking cessation encouraged / provided DVT prophylaxis new onset nausea, abd discomfort 11-12 Has not been on his PPI which contributes to his issues History of Present Illness History of Present Illness Chief Complaint: Problems: (1) Chest pain (2) Hypoxia (3) Shortness of breath Chief Complain: Chest pain, shortness of breath History of Present Illness: HPI: Patient is a 55-year-old male presenting today due to worsening shortness of breath and chest pain. Patient was recently admitted after he thought his ICD fired. He was here for several days and was found to be atrial fibrillation with RVR. After he discharged he was unable to hop picker some of his medications, including his amiodarone, due to cost. He was able to get his Lopressor and Lasix. History notable for CAD, CHF ejection fraction 25%. Patient says his chest pain has persisted since last admission. He says it did get worse after discharge since he was unable to hop picker any of his medications. Denies any sort of productive cough or fevers. Patient presented the emergency room found to be relatively fluid overloaded, patient also had a 2 L oxygen requirement after he was found to be saturating mid 80s on room air. Patient was denying any sort of headache, vision changes, abdominal pain, joint pain, dysuria. Past Medical/Surgical History: PMH/PSH: A. fib, CAD, CHF 25% ejection fraction Allergies: Allergies: Coded Allergies: No Known Drug Allergies (Unverified , 10/31/20) Family History: Family History: CAD, hypertension Social History: Social History: Smoker, frequent alcohol use, denies drug use Current Medications: Current Medications Current Medications Ondansetron HCl (Zofran) 4 mg 1X ONCE IVP Last administered on 11/10/20at 16:20; Start 11/10/20 at 14:15; Stop 11/10/20 at 14:16; Status DC Amiodarone HCl (Cordarone) 200 mg DAILY PO ; Start 11/11/20 at 09:00 Aspirin (Aspirin Chewable) 81 mg DAILY PO ; Start 11/11/20 at 09:00 Furosemide (Lasix) 40 mg DAILY PO ; Start 11/11/20 at 09:00 Lorazepam (Ativan) 0.5 mg PRN TID PRN PO ANXIETY / AGITATION; Start 11/10/20 at 16:15 Metoprolol Succinate (Toprol Xl) 75 mg DAILY PO ; Start 11/11/20 at 09:00 Sacubitril/ Valsartan (Entresto 24 Mg-26 Mg) 1 tab BID PO ; Start 11/10/20 at 21:00 Sertraline HCl (Zoloft) 25 mg DAILY PO ; Start 11/11/20 at 09:00 Non-Formulary Medication (Fluticasone/ Salmeterol (Advair 250-50 Diskus)) 1 puff BID IH ; Start 11/10/20 at 21:00; Status UNV Pantoprazole Sodium (Protonix) 40 mg DAILYAC PO ; Start 11/11/20 at 07:30 Non-Formulary Medication (Tiotropium [place] (Spiriva)) 1 cap DAILY IH ; Start 11/11/20 at 09:00; Status UNV Ondansetron HCl (Zofran) 4 mg PRN Q6HRS PRN IVP NAUSEA/VOMITING; Start 11/10/20 at 16:15 Calcium Carbonate/ Glycine (Tums) 500 mg PRN Q3HRS PRN PO UPSET STOMACH; Start 11/10/20 at 16:15 Zolpidem Tartrate (Ambien) 5 mg PRN QHS PRN PO INSOMNIA, MAY REPEAT IN 1HR; Start 11/10/20 at 16:15 Info (Non-Icu Electrolyte Protocol) 1 ea PRN DAILY PRN MC SEE COMMENTS; Start 11/10/20 at 16:15 Oxycodone HCl (Roxicodone) 5 mg PRN Q3HRS PRN PO BREAKTHROUGH PAIN; Start 11/10/20 at 16:15 Oxycodone/ Acetaminophen (Percocet 5/325) 1 tab PRN Q4HRS PRN PO MILD PAIN, 1ST CHOICE; Start 11/10/20 at 16:15 Oxycodone/ Acetaminophen (Percocet 5/325) 2 tab PRN Q4HRS PRN PO MODERATE PAIN, SEVERE PAIN; Start 11/10/20 at 16:15 Acetaminophen (Tylenol) 650 mg PRN Q6HRS PRN PO Headaches, Temp > 101.5F; Start 11/10/20 at 16:15 Senna/Docusate Sodium (Senna Plus) 1 tab BID PO ; Start 11/10/20 at 21:00 Enoxaparin Sodium (Lovenox 40mg Syringe) 40 mg Q24H SQ ; Start 11/10/20 at 21:00 Albuterol/ Ipratropium (Duoneb) 3 ml RTQID NEB ; Start 11/10/20 at 20:00 Budesonide (Pulmicort) 0.5 mg RTBID NEB ; Start 11/10/20 at 20:00 Active Scripts Active Ativan (Lorazepam) 0.5 Mg Tablet 0.5 Mg PO TID PRN 28 Days Amiodarone Hcl 200 Mg Tablet 200 Mg PO DAILY 30 Days Dicyclomine Hcl 10 Mg Capsule 10 Mg PO PRN QID PRN 14 Days Spiriva (Tiotropium [place]) 18 Mcg Cap.w.dev 1 Cap IH DAILY 30 Days Entresto 24 mg-26 mg Tablet (Sacubitril/Valsartan) 1 Each Tablet 1 Each PO BID 30 Days Advair 250-50 Diskus (Fluticasone/Salmeterol) 1 Each Disk.w.dev 1 Puff IH BID 30 Days Zoloft (Sertraline Hcl) 25 Mg Tablet 1 Tab PO DAILY 30 Days Protonix (Pantoprazole Sodium) 20 Mg Tablet.dr 2 Tab PO DAILY 30 Days Toprol XL (Metoprolol Succinate) 50 Mg Tab.er.24h 75 Mg PO DAILY 30 Days Furosemide 40 Mg Tablet 1 Tab PO DAILY 30 Days Reported Aspirin 81 Mg Tab.chew 1 Tab PO DAILY ROS: Review of Systems Review of System Negative unless noted in HPI 9-13 labs pending covid neg A. fib, CAD, CHF 25% ejection fraction Patient recently admitted for A. fib, ejection fraction around 25% / biventricu lar ICD/[employer]-D implantation. Device check / normal function. Discharged however was unable to hop picker most of his medications; symptoms have only worsened since that discharge she says fluid overloaded on presentation shortness of breath on presentation check Covid resume home medications as they were prescribed at recent discharge. Consult cardiology Cardiac diet Smoking cessation encouraged / provided 11-13 covid neg abdominal discomfort, nausea new 11-03 ct Gallbladder wall thickening and pericholecystic fluid, which could represent acute cholecystitis. No radiopaque stones are seen by CT. Correlate with laboratory values. If there is persistent concern for choledocholithiasis, MRI could be obtained. GI CONSULTED SONO ORDERED, NPO The common duct is mildly dilated and contains some echogenic material. This may reflect artifact or choledocholithiasis. ON ultrasound /MRCP could further evaluate if the diagnosis is unclear. A. fib, CAD, CHF 25% ejection fraction Patient recently admitted for A. fib, ejection fraction around 25% / biventricular ICD/[employer]-D implantation. Device check / normal function. Discharged however was unable to hop picker most of his medications; symptoms have only worsened since that discharge she says fluid overloaded on presentation shortness of breath on presentation check Covid resume home medications as they were prescribed at recent discharge. Consult cardiology Cardiac diet Smoking cessation encouraged / provided Has not been on his PPI / contributes to his PAIN surgery consult 11-12 labs pending covid neg abdominal discomfort, nausea new 11-03 ct Gallbladder wall thickening and pericholecystic fluid, which could represent acute cholecystitis. No radiopaque stones are seen by CT. Correlate with laboratory values. If there is persistent concern for choledocholithiasis, MRI could be obtained. GI CONSULTED SONO ORDERED, NPO A. fib, CAD, CHF 25% ejection fraction Patient recently admitted for A. fib, ejection fraction around 25% / biventricular ICD/[employer]-D implantation. Device check / normal function. Discharged however was unable to hop picker most of his medications; symptoms have only worsened since that discharge she says fluid overloaded on presentation shortness of breath on presentation check Covid resume home medications as they were prescribed at recent discharge. Consult cardiology Cardiac diet Smoking cessation encouraged / provided Has not been on his PPI / contributes to his PAIN Vitals Vitals Vital Signs Date Time Temp Pulse Resp B/P (MAP) Pulse Ox O2 Delivery O2 Flow Rate FiO2 11/13/20 09:46 112 136/96 11/13/20 07:00 98.0 18 97 Room Air 98.0 11/13/20 03:08 2.0 Physical Exam Physical Exam GEN: Mild distress HEENT: Normal cephalic, atraumatic, external auditory canals are patent EYES: Extraocular muscles are intact, pupil are equally round and reactive to light and accommodation MUSCULOSKELETAL: Well developed , well nourished, good range of motion ENDOCRINE: No thyromegaly was palpated LYMPHATICS: No cervical chain or axillary nodes were noted HEMATOPOIETIC: No bruising NECK: Supple, no JVD, no thyromegaly was noted LUNGS: Bibasilar crackles HEART: Irregularly irregular, peripheral pulses intact ABDOMEN: MILDLY tender. Positive bowel sounds, no organomegaly, normal bowel sounds EXTREMITIES: Bilateral lower extremity pitting edema NEUROLOGIC: Normal speech and tone. A&O x 3, moves all extremities, no obvious focal deficits PSYCHIATRIC: Normal affect, normal mood. Stable SKIN: No ulcerations or rashes, good skin turgor, no jaundice VASCULAR: Good capillary refill, neurovascular bundle appears to be intact General: Alert, Oriented X3, Cooperative, mild distress Heart: Regular rate, Normal S1 Lungs: Clear Abdomen: Normal bowel sounds, Soft Extremities: No clubbing, No cyanosis Labs LABS PATIENT: RUPERTO JEAN-BAPTISTE ACCOUNT: [id number] : 1965 LOCATION: [facility] AGE: 55 SEX: M EXAM STATUS: ADM IN ORD. PHYSICIAN: YURI SAMPSON MD REASON: ?cholecystitis, sutdy stopped at 45 min per pt. request, anxiety and pain PROCEDURE: NM HEPATOBILIARY SCAN WO EF INDICATION: Reason: ?cholecystitis, sutdy stopped at 45 min per pt. request, anxiety and pain / Spl. Instructions: / History: COMPARISON: November 03 and November 02, 2020 CT and ultrasound TECHNIQUE: 4.3mCi of Tc99m Choletec was injected intravenously followed by scintigraphic images of the abdomen. FINDINGS: Appropriate radiotracer clearance from the blood pool. Appropriate radiotracer excretion into the biliary tree. The gallbladder is visualized. There is some activity seen within the urinary bladder. The examination was terminated prior to visualization of bowel activity. IMPRESSION: * No evidence of acute cholecystitis. * The patient requested that the study be terminated prior to visualization of activity within the small bowel. The lack of small bowel activity could be secondary to the study being prematurely terminated but cannot exclude bile duct obstruction given this finding and if the patient can tolerate the exam could be reattempted at a later time. Electronically signed by: Brien García MD (11/05/2020 2:11 PM) [id number] DICTATED and SIGNED BY: BRIEN GARCÍA MD DATE: 11/05/20 [id number] PATIENT: RUPERTO JEAN-BAPTISTE ACCOUNT: [id number] : 1965 LOCATION: [address] [place] [address] AGE: 55 SEX: M EXAM STATUS: ADM IN ORD. PHYSICIAN: MONTEZ GONZALES MD REASON: PAIN; Previous Exam 10 days ago PROCEDURE: ABDOMEN LTD EXAM: RIGHT UPPER QUADRANT ULTRASOUND. HISTORY: Right upper quadrant pain. COMPARISON: 11/03/2020. FINDINGS: Sonographic evaluation of the right upper quadrant was performed. Visualization was limited by patient tenderness. The liver appears normal in parenchymal echotexture. There are no focal lesions. The hepatic veins and inferior vena cava are distended. The gallbladder is contracted. Suggested mild wall thickening is likely from nondistention. No stones or pericholecystic fluid are seen. There is no sonographic Peters sign. The common duct measures 8 mm. There is some echogenic material versus artifact within the distal common duct. Limited images of the visualized portions of the head of the pancreas reveal no abnormality. The right kidney measures at least 9.6 cm. Cortical thickness and echogenicity are preserved. There is no hydronephrosis. The visualized portions of the abdominal aorta are grossly patent and normal in caliber. IMPRESSION: 1. The common duct is mildly dilated and contains some echogenic material. This may reflect artifact or choledocholithiasis. MRCP could further evaluate if the diagnosis is unclear. 2. Distention of the inferior vena cava and hepatic veins is consistent with hepatic venous congestion. Mild gallbladder wall thickening likely reflects systemic edema in this setting. Electronically signed by: Belen Llanes MD (11/12/2020 4:13 PM) UI-HATF DICTATED and SIGNED BY: SANG LLANES MD Laboratory Tests Test 11/12/20 14:50 White Blood Count 7.7 x10^3/uL (4.0-11.0) Red Blood Count 4.62 x10^6/uL (4.30-5.70) Hemoglobin 14.9 g/dL (13.0-17.5) Hematocrit 44.7 % (39.0-53.0) Mean Corpuscular Volume 97 fL (79-100) Mean Corpuscular Hemoglobin 32 pg (25-35) Mean Corpuscular Hemoglobin Concent 33 g/dL (31-37) Red Cell Distribution Width 13.0 % (11.5-14.5) Platelet Count 341 x10^3/uL (140-400) Neutrophils (%) (Auto) 77 % (31-73) Lymphocytes (%) (Auto) 14 % (24-48) Monocytes (%) (Auto) 7 % (0-9) Eosinophils (%) (Auto) 1 % (0-3) Basophils (%) (Auto) 1 % (0-3) Neutrophils # (Auto) 5.9 x10^3/uL (1.8-7.7) Lymphocytes # (Auto) 1.1 x10^3/uL (1.0-4.8) Monocytes # (Auto) 0.5 x10^3/uL (0.0-1.1) Eosinophils # (Auto) 0.1 x10^3/uL (0.0-0.7) Basophils # (Auto) 0.0 x10^3/uL (0.0-0.2) Sodium Level 138 mmol/L (136-145) Potassium Level 4.8 mmol/L (3.5-5.1) Chloride Level 100 mmol/L (98-107) Carbon Dioxide Level 30 mmol/L (21-32) Anion Gap 8 (6-14) Blood Urea Nitrogen 22 mg/dL (8-26) Creatinine 1.2 mg/dL (0.7-1.3) Estimated GFR (Cockcroft-Gault) 63.1 BUN/Creatinine Ratio 18 (6-20) Glucose Level 128 mg/dL (70-99) Calcium Level 8.3 mg/dL (8.5-10.1) Total Bilirubin 0.5 mg/dL (0.2-1.0) Aspartate Amino Transf (AST/SGOT) 246 U/L (15-37) Alanine Aminotransferase (ALT/SGPT) 353 U/L (16-63) Alkaline Phosphatase 82 U/L (46-116) Total Protein 6.7 g/dL (6.4-8.2) Albumin 3.3 g/dL (3.4-5.0) Albumin/Globulin Ratio 1.0 (1.0-1.7) Assessment and Plan Assessmemt and Plan Problems Medical Problems: (1) Chest pain Status: Acute (2) Hypoxia Status: Acute Comment Review of Relevant I have reviewed the following items rommel (where applicable) has been applied. Labs Laboratory Tests Test 11/11/20 16:20 11/11/20 18:15 11/12/20 14:50 Sodium Level 133 mmol/L (136-145) 138 mmol/L (136-145) Potassium Level 4.2 mmol/L (3.5-5.1) 4.8 mmol/L (3.5-5.1) Chloride Level 99 mmol/L (98-107) 100 mmol/L (98-107) Carbon Dioxide Level 31 mmol/L (21-32) 30 mmol/L (21-32) Anion Gap 3 (6-14) 8 (6-14) Blood Urea Nitrogen 23 mg/dL (8-26) 22 mg/dL (8-26) Creatinine 1.2 mg/dL (0.7-1.3) 1.2 mg/dL (0.7-1.3) Estimated GFR (Cockcroft-Gault) 63.1 63.1 Glucose Level 119 mg/dL (70-99) 128 mg/dL (70-99) Calcium Level 8.3 mg/dL (8.5-10.1) 8.3 mg/dL (8.5-10.1) Troponin I Quantitative 0.026 ng/mL (0.000-0.055) White Blood Count 7.7 x10^3/uL (4.0-11.0) Red Blood Count 4.62 x10^6/uL (4.30-5.70) Hemoglobin 14.9 g/dL (13.0-17.5) Hematocrit 44.7 % (39.0-53.0) Mean Corpuscular Volume 97 fL (79-100) Mean Corpuscular Hemoglobin 32 pg (25-35) Mean Corpuscular Hemoglobin Concent 33 g/dL (31-37) Red Cell Distribution Width 13.0 % (11.5-14.5) Platelet Count 341 x10^3/uL (140-400) Neutrophils (%) (Auto) 77 % (31-73) Lymphocytes (%) (Auto) 14 % (24-48) Monocytes (%) (Auto) 7 % (0-9) Eosinophils (%) (Auto) 1 % (0-3) Basophils (%) (Auto) 1 % (0-3) Neutrophils # (Auto) 5.9 x10^3/uL (1.8-7.7) Lymphocytes # (Auto) 1.1 x10^3/uL (1.0-4.8) Monocytes # (Auto) 0.5 x10^3/uL (0.0-1.1) Eosinophils # (Auto) 0.1 x10^3/uL (0.0-0.7) Basophils # (Auto) 0.0 x10^3/uL (0.0-0.2) BUN/Creatinine Ratio 18 (6-20) Total Bilirubin 0.5 mg/dL (0.2-1.0) Aspartate Amino Transf (AST/SGOT) 246 U/L (15-37) Alanine Aminotransferase (ALT/SGPT) 353 U/L (16-63) Alkaline Phosphatase 82 U/L (46-116) Total Protein 6.7 g/dL (6.4-8.2) Albumin 3.3 g/dL (3.4-5.0) Albumin/Globulin Ratio 1.0 (1.0-1.7) Laboratory Tests Test 11/12/20 14:50 White Blood Count 7.7 x10^3/uL (4.0-11.0) Red Blood Count 4.62 x10^6/uL (4.30-5.70) Hemoglobin 14.9 g/dL (13.0-17.5) Hematocrit 44.7 % (39.0-53.0) Mean Corpuscular Volume 97 fL (79-100) Mean Corpuscular Hemoglobin 32 pg (25-35) Mean Corpuscular Hemoglobin Concent 33 g/dL (31-37) Red Cell Distribution Width 13.0 % (11.5-14.5) Platelet Count 341 x10^3/uL (140-400) Neutrophils (%) (Auto) 77 % (31-73) Lymphocytes (%) (Auto) 14 % (24-48) Monocytes (%) (Auto) 7 % (0-9) Eosinophils (%) (Auto) 1 % (0-3) Basophils (%) (Auto) 1 % (0-3) Neutrophils # (Auto) 5.9 x10^3/uL (1.8-7.7) Lymphocytes # (Auto) 1.1 x10^3/uL (1.0-4.8) Monocytes # (Auto) 0.5 x10^3/uL (0.0-1.1) Eosinophils # (Auto) 0.1 x10^3/uL (0.0-0.7) Basophils # (Auto) 0.0 x10^3/uL (0.0-0.2) Sodium Level 138 mmol/L (136-145) Potassium Level 4.8 mmol/L (3.5-5.1) Chloride Level 100 mmol/L (98-107) Carbon Dioxide Level 30 mmol/L (21-32) Anion Gap 8 (6-14) Blood Urea Nitrogen 22 mg/dL (8-26) Creatinine 1.2 mg/dL (0.7-1.3) Estimated GFR (Cockcroft-Gault) 63.1 BUN/Creatinine Ratio 18 (6-20) Glucose Level 128 mg/dL (70-99) Calcium Level 8.3 mg/dL (8.5-10.1) Total Bilirubin 0.5 mg/dL (0.2-1.0) Aspartate Amino Transf (AST/SGOT) 246 U/L (15-37) Alanine Aminotransferase (ALT/SGPT) 353 U/L (16-63) Alkaline Phosphatase 82 U/L (46-116) Total Protein 6.7 g/dL (6.4-8.2) Albumin 3.3 g/dL (3.4-5.0) Albumin/Globulin Ratio 1.0 (1.0-1.7) Medications Current Medications Ondansetron HCl (Zofran) 4 mg 1X ONCE IVP Last administered on 11/10/20at 16:20; Start 11/10/20 at 14:15; Stop 11/10/20 at 14:16; Status DC Amiodarone HCl (Cordarone) 200 mg DAILY PO Last administered on 11/13/20 09:46; Start 11/11/20 at 09:00 Aspirin (Aspirin Chewable) 81 mg DAILY PO Last administered on 11/13/20 09:44; Start 11/11/20 at 09:00 Furosemide (Lasix) 40 mg DAILY PO Last administered on 11/13/20 09:46; Start 11/11/20 at 09:00 Lorazepam (Ativan) 0.5 mg PRN TID PRN PO ANXIETY / AGITATION Last administered on 11/12/20 20:16; Start 11/10/20 at 16:15 Metoprolol Succinate (Toprol Xl) 75 mg DAILY PO Last administered on 11/13/20 09:45; Start 11/11/20 at 09:00 Sacubitril/ Valsartan (Entresto 24 Mg-26 Mg) 1 tab BID PO Last administered on 11/11/20 09:25; Start 11/10/20 at 21:00; Stop 11/11/20 at 16:33; Status DC Sertraline HCl (Zoloft) 25 mg DAILY PO Last administered on 11/13/20 09:46; Start 11/11/20 at 09:00 Non-Formulary Medication (Fluticasone/ Salmeterol (Advair 250-50 Diskus)) 1 puff BID IH ; Start 11/10/20 at 21:00; Status UNV Pantoprazole Sodium (Protonix) 40 mg DAILYAC PO Last administered on 11/13/20 09:44; Start 11/11/20 at 07:30 Non-Formulary Medication (Tiotropium [place] (Spiriva)) 1 cap DAILY IH ; Start 11/11/20 at 09:00; Status UNV Ondansetron HCl (Zofran) 4 mg PRN Q6HRS PRN IVP NAUSEA/VOMITING Last administered on 11/12/20 13:29; Start 11/10/20 at 16:15 Calcium Carbonate/ Glycine (Tums) 500 mg PRN Q3HRS PRN PO UPSET STOMACH; Start 11/10/20 at 16:15 Zolpidem Tartrate (Ambien) 5 mg PRN QHS PRN PO INSOMNIA, MAY REPEAT IN 1HR Last administered on 9/13/21at 22:29; Start 11/10/20 at 16:15 Info (Non-Icu Electrolyte Protocol) 1 ea PRN DAILY PRN MC SEE COMMENTS; Start 11/10/20 at 16:15 Oxycodone HCl (Roxicodone) 5 mg PRN Q3HRS PRN PO BREAKTHROUGH PAIN Last administered on 11/13/20at 02:38; Start 11/10/20 at 16:15 Oxycodone/ Acetaminophen (Percocet 5/325) 1 tab PRN Q4HRS PRN PO MILD PAIN, 1ST CHOICE Last administered on 11/11/20at 22:29; Start 11/10/20 at 16:15 Oxycodone/ Acetaminophen (Percocet 5/325) 2 tab PRN Q4HRS PRN PO MODERATE PAIN, SEVERE PAIN Last administered on 11/12/20at 20:16; Start 11/10/20 at 16:15 Acetaminophen (Tylenol) 650 mg PRN Q6HRS PRN PO Headaches, Temp > 101.5F; Start 11/10/20 at 16:15 Senna/Docusate Sodium (Senna Plus) 1 tab BID PO Last administered on 11/12/20at 20:16; Start 11/10/20 at 21:00 Enoxaparin Sodium (Lovenox 40mg Syringe) 40 mg Q24H SQ Last administered on 11/12/20at 20:16; Start 11/10/20 at 21:00 Albuterol/ Ipratropium (Duoneb) 3 ml RTQID NEB ; Start 11/10/20 at 20:00; Stop 11/10/20 at 20:43; Status DC Budesonide (Pulmicort) 0.5 mg RTBID NEB ; Start 11/10/20 at 20:00; Stop 11/10/20 at 20:43; Status DC Fluticasone/ Vilanterol (Breo Ellipta 100-25 Mcg) 1 puff DAILY INH Last administered on 11/13/20at 09:46; Start 11/10/20 at 21:00 Furosemide (Lasix) 40 mg 1X ONCE IVP Last administered on 11/11/20at 17:20; Start 11/11/20 at 16:45; Stop 11/11/20 at 16:46; Status DC Furosemide (Lasix) 40 mg 1X ONCE IVP ; Start 11/12/20 at 16:15; Stop 11/12/20 at 16:19; Status DC Active Scripts Active Ativan (Lorazepam) 0.5 Mg Tablet 0.5 Mg PO TID PRN 28 Days Amiodarone Hcl 200 Mg Tablet 200 Mg PO DAILY 30 Days Dicyclomine Hcl 10 Mg Capsule 10 Mg PO PRN QID PRN 14 Days Spiriva (Tiotropium [place]) 18 Mcg Cap.w.dev 1 Cap IH DAILY 30 Days Entresto 24 mg-26 mg Tablet (Sacubitril/Valsartan) 1 Each Tablet 1 Each PO BID 30 Days Advair 250-50 Diskus (Fluticasone/Salmeterol) 1 Each Disk.w.dev 1 Puff IH BID 30 Days Zoloft (Sertraline Hcl) 25 Mg Tablet 1 Tab PO DAILY 30 Days Protonix (Pantoprazole Sodium) 20 Mg Tablet.dr 2 Tab PO DAILY 30 Days Toprol XL (Metoprolol Succinate) 50 Mg Tab.er.24h 75 Mg PO DAILY 30 Days Furosemide 40 Mg Tablet 1 Tab PO DAILY 30 Days Reported Aspirin 81 Mg Tab.chew 1 Tab PO DAILY Vitals/I & O Vital Sign - Last 24 Hours 11/12/20 11/12/20 11/12/20 11/12/20 11:10 15:00 19:00 20:00 Temp 97.9 97.5 98.1 97.9 97.5 98.1 Pulse 112 110 112 Resp 20 19 B/P (MAP) 109/75 (86) 90/67 (75) 110/69 (83) Pulse Ox 95 97 95 O2 Delivery Room Air Room Air Room Air Room Air 11/12/20 11/12/20 11/12/20 11/13/20 20:16 20:46 23:02 02:00 Temp 98.2 97.7 98.2 97.7 Pulse 114 113 Resp 16 18 B/P (MAP) 114/56 (75) 109/68 (82) Pulse Ox 95 95 95 97 O2 Delivery Nasal Cannula Nasal Cannula Room Air Room Air O2 Flow Rate 2.0 2.0 11/13/20 11/13/20 11/13/20 11/13/20 02:38 03:08 07:00 09:45 Temp 98.0 98.0 Pulse 117 112 Resp 18 B/P (MAP) 90/69 (76) 136/96 Pulse Ox 97 97 97 O2 Delivery Nasal Cannula Room Air Room Air O2 Flow Rate 2.0 2.0 11/13/20 09:46 Pulse 112 B/P (MAP) 136/96 Intake and Output 11/12/20 11/12/20 11/13/20 15:00 23:00 07:00 Intake Total 0 ml Balance 0 ml Justicifation of Admission Dx: Justifications for Admission: Justification of Admission Dx: Yes MONTEZ GONZALES MD Nov 13, 2020 10:06
--- NOTE | 2020-11-13 10:32 | PDOC ---
Date of Service: DATE: 11/13/20 TIME: 10:24 Subjective: Subjective: Feels the same. Hasn't vomited or stooled. Passing gas. Didn't eat anything today. Not sure if he's having more tests. Objective: Objective: D/w nurse - unclear why NPO this morning, does have surgery consult pending. Surgery note from 11/06/20: I have reviewed the following HIDA scan shows no evidence of acute cholecystitis Assessment/Plan No surgical plans at this time. Defer to cardiology internal medicine for discharge planning. Vital Signs: Vital Signs Date Time Temp Pulse Resp B/P (MAP) Pulse Ox O2 Delivery O2 Flow Rate FiO2 11/13/20 09:46 112 136/96 11/13/20 07:00 98.0 18 97 Room Air 98.0 11/13/20 03:08 2.0 Labs: Laboratory Tests Test 11/12/20 14:50 White Blood Count 7.7 x10^3/uL Red Blood Count 4.62 x10^6/uL Hemoglobin 14.9 g/dL Hematocrit 44.7 % Mean Corpuscular Volume 97 fL Mean Corpuscular Hemoglobin 32 pg Mean Corpuscular Hemoglobin Concent 33 g/dL Red Cell Distribution Width 13.0 % Platelet Count 341 x10^3/uL Neutrophils (%) (Auto) 77 % Lymphocytes (%) (Auto) 14 % Monocytes (%) (Auto) 7 % Eosinophils (%) (Auto) 1 % Basophils (%) (Auto) 1 % Neutrophils # (Auto) 5.9 x10^3/uL Lymphocytes # (Auto) 1.1 x10^3/uL Monocytes # (Auto) 0.5 x10^3/uL Eosinophils # (Auto) 0.1 x10^3/uL Basophils # (Auto) 0.0 x10^3/uL Sodium Level 138 mmol/L Potassium Level 4.8 mmol/L Chloride Level 100 mmol/L Carbon Dioxide Level 30 mmol/L Anion Gap 8 Blood Urea Nitrogen 22 mg/dL Creatinine 1.2 mg/dL Estimated GFR (Cockcroft-Gault) 63.1 BUN/Creatinine Ratio 18 Glucose Level 128 mg/dL Calcium Level 8.3 mg/dL Total Bilirubin 0.5 mg/dL Aspartate Amino Transf (AST/SGOT) 246 U/L Alanine Aminotransferase (ALT/SGPT) 353 U/L Alkaline Phosphatase 82 U/L Total Protein 6.7 g/dL Albumin 3.3 g/dL Albumin/Globulin Ratio 1.0 Imaging: AAS 11/12 IMPRESSION: 1. No acute pulmonary finding. 2. Cardiomegaly. 3. Nonspecific air-filled bowel within the left upper and mid abdomen. There is no convincing transition point to suggest obstruction. Abd US 11/12 FINDINGS: Sonographic evaluation of the right upper quadrant was performed. Visualization was limited by patient tenderness. The liver appears normal in parenchymal echotexture. There are no focal lesions. The hepatic veins and inferior vena cava are distended. The gallbladder is contracted. Suggested mild wall thickening is likely from nondistention. No stones or pericholecystic fluid are seen. There is no sonographic Peters sign. The common duct measures 8 mm. There is some echogenic material versus artifact within the distal common duct. Limited images of the visualized portions of the head of the pancreas reveal no abnormality. The right kidney measures at least 9.6 cm. Cortical thickness and echogenicity are preserved. There is no hydronephrosis. The visualized portions of the abdominal aorta are grossly patent and normal in caliber. IMPRESSION: 1. The common duct is mildly dilated and contains some echogenic material. This may reflect artifact or choledocholithiasis. MRCP could further evaluate if the diagnosis is unclear. 2. Distention of the inferior vena cava and hepatic veins is consistent with hepatic venous congestion. Mild gallbladder wall thickening likely reflects systemic edema in this setting. PE: GEN: NAD LUNGS: wheezing HEART: tachycardic/irregular ABD: non-specifically tender right abdomen, fairly quiet NEURO/PSYCH: A & O 3 - less grumpy today A/P: CHF, A Fib, NICM, anxiety, non-compliance Abd pain, nausea, h/o GERD Elevated AST and ALT - worse, ?related to heart failure Dilated CBD (noted last admission - 11mm then, 8mm now) - no cholelithiasis noted, normal bili and Alk Phos COVID negative -- US results reviewed. Continue PPI. Okay to try diet per GI. Justicifation of Admission Dx: Justifications for Admission: Justification of Admission Dx: Yes GEOVANNI PASTOR Nov 13, 2020 10:32
[2020-11-13 11:00] VITALS: BP 136/96
--- NOTE | 2020-11-13 11:40 | PDOC ---
BERHANE SERRANO CROP PULLER 11/13/20 1140: CARDIO Progress Notes Date and Time Date of Service 11/13/20 Time of Evaluation 1130 Subjective Subjective: Other (c/o intermittent abdominal pain and nausea) Vitals Vitals Vital Signs Date Time Temp Pulse Resp B/P (MAP) Pulse Ox O2 Delivery O2 Flow Rate FiO2 11/13/20 09:46 112 136/96 11/13/20 07:00 98.0 18 97 Room Air 98.0 11/13/20 03:08 2.0 Weight Weight [ ] Input and Output Intake and Output Intake and Output 11/13/20 07:00 Intake Total 0 ml Balance 0 ml Intake Oral 0 ml # Voids 2 # Bowel Movements 1 Laboratory Labs Laboratory Tests Test 11/12/20 14:50 White Blood Count 7.7 x10^3/uL (4.0-11.0) Red Blood Count 4.62 x10^6/uL (4.30-5.70) Hemoglobin 14.9 g/dL (13.0-17.5) Hematocrit 44.7 % (39.0-53.0) Mean Corpuscular Volume 97 fL (79-100) Mean Corpuscular Hemoglobin 32 pg (25-35) Mean Corpuscular Hemoglobin Concent 33 g/dL (31-37) Red Cell Distribution Width 13.0 % (11.5-14.5) Platelet Count 341 x10^3/uL (140-400) Neutrophils (%) (Auto) 77 % (31-73) Lymphocytes (%) (Auto) 14 % (24-48) Monocytes (%) (Auto) 7 % (0-9) Eosinophils (%) (Auto) 1 % (0-3) Basophils (%) (Auto) 1 % (0-3) Neutrophils # (Auto) 5.9 x10^3/uL (1.8-7.7) Lymphocytes # (Auto) 1.1 x10^3/uL (1.0-4.8) Monocytes # (Auto) 0.5 x10^3/uL (0.0-1.1) Eosinophils # (Auto) 0.1 x10^3/uL (0.0-0.7) Basophils # (Auto) 0.0 x10^3/uL (0.0-0.2) Sodium Level 138 mmol/L (136-145) Potassium Level 4.8 mmol/L (3.5-5.1) Chloride Level 100 mmol/L (98-107) Carbon Dioxide Level 30 mmol/L (21-32) Anion Gap 8 (6-14) Blood Urea Nitrogen 22 mg/dL (8-26) Creatinine 1.2 mg/dL (0.7-1.3) Estimated GFR (Cockcroft-Gault) 63.1 BUN/Creatinine Ratio 18 (6-20) Glucose Level 128 mg/dL (70-99) Calcium Level 8.3 mg/dL (8.5-10.1) Total Bilirubin 0.5 mg/dL (0.2-1.0) Aspartate Amino Transf (AST/SGOT) 246 U/L (15-37) Alanine Aminotransferase (ALT/SGPT) 353 U/L (16-63) Alkaline Phosphatase 82 U/L (46-116) Total Protein 6.7 g/dL (6.4-8.2) Albumin 3.3 g/dL (3.4-5.0) Albumin/Globulin Ratio 1.0 (1.0-1.7) Physical Exam HEENT: Neck Supple W Full Motion Chest: Symmetric LUNGS: Other (diminished bases) Heart: RRR Abdomen: Soft N/T Extremities: Other (trace bilateral LE edema ) Neurology: alert, oriented, follow commands Assessment Assessment 1. Acute on chronic systolic CHF; better compensated 2. Nonischemic cardiomyopathy; S/p biventricular ICD/FURNITURE SHAMPOOER-D implantation. Device check showed normal function. 2D echo showed LVEF 25 to 30%. 3. Chest pain, atypical. Cardiac catheterization approximately 1 year ago reportedly did not show any significant coronary disease. 4. PAFIB/flutter; presently v-paced with underlying AFIB. rate 115. 5. Hyperkalemia; better. 6. Abdominal pain, nausea; US noted with CBD dilation. as per GI Recommendations Lasix therapy Metoprolol for rate control. Will given additional dose of IV lopressor now Amiodarone for rhythm maintenance Eliquis for stroke prophylaxis Consider ablation with primary early childhood education specialist Supportive care Justicifation of Admission Dx: Justifications for Admission: Justification of Admission Dx: Yes TIBURCIO WATT MD 11/14/20 1301: CARDIO Progress Notes Assessment Assessment Patient seen and examined 11/13/20. Agree wit GRAND SCRIBE's assessment and plan. Acute on chr systolic HF better compensated with diuresis PAF with another episode overnight noted presently back in SR - continue amiodarone for rhythm maintenance and eliquis for stroke prophylaxis Consider AF ablation with primary early childhood education specialist BERHANE SERRANO APRN Nov 13, 2020 11:40 TIBURCIO WATT MD Nov 14, 2020 13:01
[2020-11-13] MEDS: oxyCODONE/APAP 5/325 1 TAB TABLET PO PRN ×2 (12:08→20:47)
--- NOTE | 2020-11-13 14:48 | NUR ---
SS following up with discharge planning. SS reviewed pt chart and discussed with pt RN. Pt is currently on room air. COVID19 negative. GI and Cardiology following. Dr. Sheikh consulted. Med Assist following. Pt has disability. SS will continue to follow for discharge planning.
[2020-11-13 15:00] VITALS: BP 98/78
[2020-11-13] MEDS ORDERED: FUROSEMIDE 40 MG/4 ML VIAL. IVP ONE (15:45)
[2020-11-13] MEDS ORDERED: METOPROLOL IV PUSH 5 MG/5 ML VIAL. IVP ONE (15:45)
--- NOTE | 2020-11-13 16:51 | PDOC2 ---
CONSULT Date of Consult Date of Consult DATE: 11/13/20 TIME: 16:48 Reason for Consult Reason for Consult: Abdominal pain elevated liver enzymes Referring Physician Referring Physician: Abhilash Identification/Chief Complaint Chief Complaint Chest pain anxiety Source Source: Chart review, Patient History of Present Illness Reason for Visit: 55-year-old male admitted to hospital with congestive heart failure labs showed elevated liver enzymes ultrasound imaging showed dilated biliary tree with gallbladder wall thickening. Currently patient is sitting up in bed complaining of chest pain and anxiety Past Medical History Cardiovascular: CHF, HTN, Hyperlipidemia Hepatobiliary: Hep A/B/C Past Surgical History Past Surgical History: Pacemaker, Hernia Repair Family History Family History: Heart Disease Social History ALCOHOL: occassional Drugs: Marijuana Lives: with Family Current Problem List Problem List Problems Medical Problems: (1) Chest pain Status: Acute (2) Hypoxia Status: Acute Current Medications Current Medications Current Medications Ondansetron HCl (Zofran) 4 mg 1X ONCE IVP Last administered on 11/10/20 16:20; Start 11/10/20 at 14:15; Stop 11/10/20 at 14:16; Status DC Amiodarone HCl (Cordarone) 200 mg DAILY PO Last administered on 11/13/20at 09:46; Start 11/11/20 at 09:00 Aspirin (Aspirin Chewable) 81 mg DAILY PO Last administered on 11/13/20at 09:44; Start 11/11/20 at 09:00 Furosemide (Lasix) 40 mg DAILY PO Last administered on 11/13/20at 09:46; Start 11/11/20 at 09:00 Lorazepam (Ativan) 0.5 mg PRN TID PRN PO ANXIETY / AGITATION Last administered on 11/12/20at 20:16; Start 11/10/20 at 16:15 Metoprolol Succinate (Toprol Xl) 75 mg DAILY PO Last administered on 11/13/20at 09:45; Start 11/11/20 at 09:00 Sacubitril/ Valsartan (Entresto 24 Mg-26 Mg) 1 tab BID PO Last administered on 11/11/20at 09:25; Start 11/10/20 at 21:00; Stop 11/11/20 at 16:33; Status DC Sertraline HCl (Zoloft) 25 mg DAILY PO Last administered on 11/13/20at 09:46; Start 11/11/20 at 09:00 Non-Formulary Medication (Fluticasone/ Salmeterol (Advair 250-50 Diskus)) 1 puff BID IH ; Start 11/10/20 at 21:00; Status UNV Pantoprazole Sodium (Protonix) 40 mg DAILYAC PO Last administered on 11/13/20at 09:44; Start 11/11/20 at 07:30 Non-Formulary Medication (Tiotropium Shelby (Spiriva)) 1 cap DAILY IH ; Start 11/11/20 at 09:00; Status UNV Ondansetron HCl (Zofran) 4 mg PRN Q6HRS PRN IVP NAUSEA/VOMITING Last administered on 11/12/20at 13:29; Start 11/10/20 at 16:15 Calcium Carbonate/ Glycine (Tums) 500 mg PRN Q3HRS PRN PO UPSET STOMACH; Start 11/10/20 at 16:15 Zolpidem Tartrate (Ambien) 5 mg PRN QHS PRN PO INSOMNIA, MAY REPEAT IN 1HR Last administered on 11/11/20at 22:29; Start 11/10/20 at 16:15 Info (Non-Icu Electrolyte Protocol) 1 ea PRN DAILY PRN MC SEE COMMENTS; Start 11/10/20 at 16:15 Oxycodone HCl (Roxicodone) 5 mg PRN Q3HRS PRN PO BREAKTHROUGH PAIN Last administered on 11/13/20at 02:38; Start 11/10/20 at 16:15 Oxycodone/ Acetaminophen (Percocet 5/325) 1 tab PRN Q4HRS PRN PO MILD PAIN, 1ST CHOICE Last administered on 11/13/20at 12:08; Start 11/10/20 at 16:15 Oxycodone/ Acetaminophen (Percocet 5/325) 2 tab PRN Q4HRS PRN PO MODERATE PAIN, SEVERE PAIN Last administered on 11/12/20at 20:16; Start 11/10/20 at 16:15 Acetaminophen (Tylenol) 650 mg PRN Q6HRS PRN PO Headaches, Temp > 101.5F; Start 11/10/20 at 16:15 Senna/Docusate Sodium (Senna Plus) 1 tab BID PO Last administered on 11/12/20at 20:16; Start 11/10/20 at 21:00 Enoxaparin Sodium (Lovenox 40mg Syringe) 40 mg Q24H SQ Last administered on 11/12/20at 20:16; Start 11/10/20 at 21:00 Albuterol/ Ipratropium (Duoneb) 3 ml RTQID NEB ; Start 11/10/20 at 20:00; Stop 11/10/20 at 20:43; Status DC Budesonide (Pulmicort) 0.5 mg RTBID NEB ; Start 11/10/20 at 20:00; Stop 11/10/20 at 20:43; Status DC Fluticasone/ Vilanterol (Breo Ellipta 100-25 Mcg) 1 puff DAILY INH Last administered on 11/13/20at 09:46; Start 11/10/20 at 21:00 Furosemide (Lasix) 40 mg 1X ONCE IVP Last administered on 11/11/20at 17:20; Start 11/11/20 at 16:45; Stop 11/11/20 at 16:46; Status DC Furosemide (Lasix) 40 mg 1X ONCE IVP ; Start 11/12/20 at 16:15; Stop 11/12/20 at 16:19; Status DC Metoprolol Tartrate (Lopressor Vial) 5 mg 1X ONCE IVP ; Start 11/13/20 at 15:45; Stop 11/13/20 at 15:46; Status DC Furosemide (Lasix) 40 mg 1X ONCE IVP ; Start 11/13/20 at 15:45; Stop 11/13/20 at 15:46; Status DC Active Scripts Active Ativan (Lorazepam) 0.5 Mg Tablet 0.5 Mg PO TID PRN 28 Days Amiodarone Hcl 200 Mg Tablet 200 Mg PO DAILY 30 Days Dicyclomine Hcl 10 Mg Capsule 10 Mg PO PRN QID PRN 14 Days Spiriva (Tiotropium Shelby) 18 Mcg Cap.w.dev 1 Cap IH DAILY 30 Days Entresto 24 mg-26 mg Tablet (Sacubitril/Valsartan) 1 Each Tablet 1 Each PO BID 30 Days Advair 250-50 Diskus (Fluticasone/Salmeterol) 1 Each Disk.w.dev 1 Puff IH BID 30 Days Zoloft (Sertraline Hcl) 25 Mg Tablet 1 Tab PO DAILY 30 Days Protonix (Pantoprazole Sodium) 20 Mg Tablet.dr 2 Tab PO DAILY 30 Days Toprol XL (Metoprolol Succinate) 50 Mg Tab.er.24h 75 Mg PO DAILY 30 Days Furosemide 40 Mg Tablet 1 Tab PO DAILY 30 Days Reported Aspirin 81 Mg Tab.chew 1 Tab PO DAILY Allergies Allergies: Coded Allergies: No Known Drug Allergies (Unverified , 10/31/20) ROS PSYCHOLOGICAL ROS: YES: Anxiety Cardiovascular: yes Chest Pain Physical Exam General: Alert, Oriented X3, Cooperative, moderate distress HEENT: Atraumatic, EOMI Lungs: Clear to auscultation, Normal air movement Heart: Regular rate, No murmurs Abdomen: Normal bowel sounds, Soft, No tenderness Extremities: No edema Skin: No significant lesion Neuro: Normal speech Psych/Mental Status: Mental status NL Vitals VITALS Vital Signs Date Time Temp Pulse Resp B/P (MAP) Pulse Ox O2 Delivery O2 Flow Rate FiO2 11/13/20 12:38 18 Nasal Cannula 11/13/20 11:00 97.8 111 136/96 (109) 94 97.8 11/13/20 03:08 2.0 Labs Labs Laboratory Tests Test 11/11/20 18:15 11/12/20 14:50 Troponin I Quantitative 0.026 ng/mL (0.000-0.055) White Blood Count 7.7 x10^3/uL (4.0-11.0) Red Blood Count 4.62 x10^6/uL (4.30-5.70) Hemoglobin 14.9 g/dL (13.0-17.5) Hematocrit 44.7 % (39.0-53.0) Mean Corpuscular Volume 97 fL (79-100) Mean Corpuscular Hemoglobin 32 pg (25-35) Mean Corpuscular Hemoglobin Concent 33 g/dL (31-37) Red Cell Distribution Width 13.0 % (11.5-14.5) Platelet Count 341 x10^3/uL (140-400) Neutrophils (%) (Auto) 77 % (31-73) Lymphocytes (%) (Auto) 14 % (24-48) Monocytes (%) (Auto) 7 % (0-9) Eosinophils (%) (Auto) 1 % (0-3) Basophils (%) (Auto) 1 % (0-3) Neutrophils # (Auto) 5.9 x10^3/uL (1.8-7.7) Lymphocytes # (Auto) 1.1 x10^3/uL (1.0-4.8) Monocytes # (Auto) 0.5 x10^3/uL (0.0-1.1) Eosinophils # (Auto) 0.1 x10^3/uL (0.0-0.7) Basophils # (Auto) 0.0 x10^3/uL (0.0-0.2) Sodium Level 138 mmol/L (136-145) Potassium Level 4.8 mmol/L (3.5-5.1) Chloride Level 100 mmol/L (98-107) Carbon Dioxide Level 30 mmol/L (21-32) Anion Gap 8 (6-14) Blood Urea Nitrogen 22 mg/dL (8-26) Creatinine 1.2 mg/dL (0.7-1.3) Estimated GFR (Cockcroft-Gault) 63.1 BUN/Creatinine Ratio 18 (6-20) Glucose Level 128 mg/dL (70-99) Calcium Level 8.3 mg/dL (8.5-10.1) Total Bilirubin 0.5 mg/dL (0.2-1.0) Aspartate Amino Transf (AST/SGOT) 246 U/L (15-37) Alanine Aminotransferase (ALT/SGPT) 353 U/L (16-63) Alkaline Phosphatase 82 U/L (46-116) Total Protein 6.7 g/dL (6.4-8.2) Albumin 3.3 g/dL (3.4-5.0) Albumin/Globulin Ratio 1.0 (1.0-1.7) Assessment/Plan Assessment/Plan Liver congestion from congestive heart failure with thickened gallbladder wall likely due to congestion does not appear to have acute cholecystitis No surgical plans at this time MONTEZ HERRERA MD Nov 13, 2020 16:51
[2020-11-13] MEDS: LORazepam 0.5 MG TABLET PO PRN (17:16)
[2020-11-13 19:55] VITALS: BP 117/71
[2020-11-13] MEDS: ENOXAPARIN 40 MG/0.4 ML SYRINGE. SQ SCH (20:46)
[2020-11-13 23:04] VITALS: BP 98/66
[2020-11-14] VITALS (7 sets, daily range): BP systolic 72–119; BP diastolic 48–82
[2020-11-14] MEDS: ONDANSETRON PF 4 MG/2 ML VIAL. IVP PRN (08:59)
[2020-11-14] MEDS: FLUTICASONE/VILANTEROL 100/25 INHALER. INH SCH (09:00)
--- NOTE | 2020-11-14 09:07 | PDOC ---
PROGRESS NOTES Date of Service: DATE: 11/14/20 TIME: 09:07 Chief Complaint Chief Complaint impression A. fib, CAD, k= 5.5 CHF 25% ejection fraction Patient recently admitted for APayal knapp, ejection fraction around 25% / biventricular ICD/MALE INFERTILITY SPECIALIST-D implantation. Device check / normal function. Discharged however was unable to slat pickler most of his medications; symptoms have only worsened since that discharge she says fluid overloaded on presentation shortness of breath on presentation check Covid resume home medications as they were prescribed at recent discharge. Consult cardiology Cardiac diet Smoking cessation encouraged / provided DVT prophylaxis new onset nausea, abd discomfort 11-12 Has not been on his PPI which contributes to his issues History of Present Illness History of Present Illness Chief Complaint: Problems: (1) Chest pain (2) Hypoxia (3) Shortness of breath Chief Complain: Chest pain, shortness of breath History of Present Illness: HPI: Patient is a 55-year-old male presenting today due to worsening shortness of breath and chest pain. Patient was recently admitted after he thought his ICD fired. He was here for several days and was found to be atrial fibrillation with RVR. After he discharged he was unable to slat pickler some of his medications, including his amiodarone, due to cost. He was able to get his Lopressor and Lasix. History notable for CAD, CHF ejection fraction 25%. Patient says his chest pain has persisted since last admission. He says it did get worse after discharge since he was unable to slat pickler any of his medications. Denies any sort of productive cough or fevers. Patient presented the emergency room found to be relatively fluid overloaded, patient also had a 2 L oxygen requirement after he was found to be saturating mid 80s on room air. Patient was denying any sort of headache, vision changes, abdominal pain, joint pain, dysuria. Past Medical/Surgical History: PMH/PSH: A. fib, CAD, CHF 25% ejection fraction Allergies: Allergies: Coded Allergies: No Known Drug Allergies (Unverified , 10/31/20) Family History: Family History: CAD, hypertension Social History: Social History: Smoker, frequent alcohol use, denies drug use Current Medications: Current Medications Current Medications Ondansetron HCl (Zofran) 4 mg 1X ONCE IVP Last administered on 11/10/20at 16:20; Start 11/10/20 at 14:15; Stop 11/10/20 at 14:16; Status DC Amiodarone HCl (Cordarone) 200 mg DAILY PO ; Start 11/11/20 at 09:00 Aspirin (Aspirin Chewable) 81 mg DAILY PO ; Start 11/11/20 at 09:00 Furosemide (Lasix) 40 mg DAILY PO ; Start 11/11/20 at 09:00 Lorazepam (Ativan) 0.5 mg PRN TID PRN PO ANXIETY / AGITATION; Start 11/10/20 at 16:15 Metoprolol Succinate (Toprol Xl) 75 mg DAILY PO ; Start 11/11/20 at 09:00 Sacubitril/ Valsartan (Entresto 24 Mg-26 Mg) 1 tab BID PO ; Start 11/10/20 at 21:00 Sertraline HCl (Zoloft) 25 mg DAILY PO ; Start 11/11/20 at 09:00 Non-Formulary Medication (Fluticasone/ Salmeterol (Advair 250-50 Diskus)) 1 puff BID IH ; Start 11/10/20 at 21:00; Status UNV Pantoprazole Sodium (Protonix) 40 mg DAILYAC PO ; Start 11/11/20 at 07:30 Non-Formulary Medication (Tiotropium [place] (Spiriva)) 1 cap DAILY IH ; Start 11/11/20 at 09:00; Status UNV Ondansetron HCl (Zofran) 4 mg PRN Q6HRS PRN IVP NAUSEA/VOMITING; Start 11/10/20 at 16:15 Calcium Carbonate/ Glycine (Tums) 500 mg PRN Q3HRS PRN PO UPSET STOMACH; Start 11/10/20 at 16:15 Zolpidem Tartrate (Ambien) 5 mg PRN QHS PRN PO INSOMNIA, MAY REPEAT IN 1HR; Start 11/10/20 at 16:15 Info (Non-Icu Electrolyte Protocol) 1 ea PRN DAILY PRN MC SEE COMMENTS; Start 11/10/20 at 16:15 Oxycodone HCl (Roxicodone) 5 mg PRN Q3HRS PRN PO BREAKTHROUGH PAIN; Start 11/10/20 at 16:15 Oxycodone/ Acetaminophen (Percocet 5/325) 1 tab PRN Q4HRS PRN PO MILD PAIN, 1ST CHOICE; Start 11/10/20 at 16:15 Oxycodone/ Acetaminophen (Percocet 5/325) 2 tab PRN Q4HRS PRN PO MODERATE PAIN, SEVERE PAIN; Start 11/10/20 at 16:15 Acetaminophen (Tylenol) 650 mg PRN Q6HRS PRN PO Headaches, Temp > 101.5F; Start 11/10/20 at 16:15 Senna/Docusate Sodium (Senna Plus) 1 tab BID PO ; Start 11/10/20 at 21:00 Enoxaparin Sodium (Lovenox 40mg Syringe) 40 mg Q24H SQ ; Start 11/10/20 at 21:00 Albuterol/ Ipratropium (Duoneb) 3 ml RTQID NEB ; Start 11/10/20 at 20:00 Budesonide (Pulmicort) 0.5 mg RTBID NEB ; Start 11/10/20 at 20:00 Active Scripts Active Ativan (Lorazepam) 0.5 Mg Tablet 0.5 Mg PO TID PRN 28 Days Amiodarone Hcl 200 Mg Tablet 200 Mg PO DAILY 30 Days Dicyclomine Hcl 10 Mg Capsule 10 Mg PO PRN QID PRN 14 Days Spiriva (Tiotropium [place]) 18 Mcg Cap.w.dev 1 Cap IH DAILY 30 Days Entresto 24 mg-26 mg Tablet (Sacubitril/Valsartan) 1 Each Tablet 1 Each PO BID 30 Days Advair 250-50 Diskus (Fluticasone/Salmeterol) 1 Each Disk.w.dev 1 Puff IH BID 30 Days Zoloft (Sertraline Hcl) 25 Mg Tablet 1 Tab PO DAILY 30 Days Protonix (Pantoprazole Sodium) 20 Mg Tablet.dr 2 Tab PO DAILY 30 Days Toprol XL (Metoprolol Succinate) 50 Mg Tab.er.24h 75 Mg PO DAILY 30 Days Furosemide 40 Mg Tablet 1 Tab PO DAILY 30 Days Reported Aspirin 81 Mg Tab.chew 1 Tab PO DAILY ROS: Review of Systems Review of System Negative unless noted in HPI - covid neg abdominal discomfort, nausea new 11-03 ct Gallbladder wall thickening and pericholecystic fluid, which could represent acute cholecystitis. No radiopaque stones are seen by CT. Correlate with laboratory values. If there is persistent concern for choledocholithiasis, MRI could be obtained. GI CONSULTED SONO ORDERED, NPO The common duct is mildly dilated and contains some echogenic material. This may reflect artifact or choledocholithiasis. ON ultrasound /MRCP could further evaluate if the diagnosis is unclear. A. fib, CAD, CHF 25% ejection fraction Patient recently admitted for A. fib, ejection fraction around 25% / biventricular ICD/MALE INFERTILITY SPECIALIST-D implantation. Device check / normal function. Discharged however was unable to slat pickler most of his medications; symptoms have only worsened since that discharge she says fluid overloaded on presentation shortness of breath on presentation check Covid resume home medications as they were prescribed at recent discharge. Consult cardiology Cardiac diet Smoking cessation encouraged / provided Has not been on his PPI / contributes to his PAIN surgery consult 914 labs pending covid neg abdominal discomfort, nausea new 11-03 ct Gallbladder wall thickening and pericholecystic fluid, which could represent acute cholecystitis. No radiopaque stones are seen by CT. Correlate with laboratory values. If there is persistent concern for choledocholithiasis, MRI could be obtained. GI CONSULTED SONO ORDERED, NPO A. fib, CAD, CHF 25% ejection fraction Patient recently admitted for A. fib, ejection fraction around 25% / biventricular ICD/MALE INFERTILITY SPECIALIST-D implantation. Device check / normal function. Discharged however was unable to slat pickler most of his medications; symptoms have only worsened since that discharge she says fluid overloaded on presentation shortness of breath on presentation check Covid resume home medications as they were prescribed at recent discharge. Consult cardiology Cardiac diet Smoking cessation encouraged / provided Has not been on his PPI / contributes to his PAIN 9-13 labs pending covid neg A. fib, CAD, CHF 25% ejection fraction Patient recently admitted for A. fib, ejection fraction around 25% / biventricular ICD/MALE INFERTILITY SPECIALIST-D implantation. Device check / normal function. Discharged however was unable to slat pickler most of his medications; symptoms have only worsened since that discharge she says fluid overloaded on presentation shortness of breath on presentation check Covid resume home medications as they were prescribed at recent discharge. Consult cardiology Cardiac diet Smoking cessation encouraged / provided 9-16 covid neg abdominal discomfort, nausea new - ct Gallbladder wall thickening and pericholecystic fluid, which could represent acute cholecystitis. No radiopaque stones are seen by CT. Correlate with laboratory values. If there is persistent concern for choledocholithiasis, MRI could be obtained. GI CONSULTED SONO ORDERED,try clears The common duct is mildly dilated and contains some echogenic material. This may reflect artifact or choledocholithiasis. ON ultrasound /MRCP could further evaluate if the diagnosis is unclear. A. fib, CAD, CHF 25% ejection fraction Patient recently admitted for A. fib, ejection fraction around 25% / biventricular ICD/MALE INFERTILITY SPECIALIST-D implantation. Device check / normal function. Discharged however was unable to slat pickler most of his medications; symptoms have only worsened since that discharge she says fluid overloaded on presentation shortness of breath on presentation check Covid resume home medications as they were prescribed at recent discharge. Consult cardiology Cardiac diet Smoking cessation encouraged / provided Has not been on his PPI / contributes to his PAIN surgery consult nonsurgical abdomen D/W DR GARCIA IN [place] 11-12 labs pending covid neg abdominal discomfort, nausea new 11-03 ct Gallbladder wall thickening and pericholecystic fluid, which could represent acute cholecystitis. No radiopaque stones are seen by CT. Correlate with laboratory values. If there is persistent concern for choledocholithiasis, MRI could be obtained. GI CONSULTED SONO ORDERED, NPO A. fib, CAD, CHF 25% ejection fraction Patient recently admitted for A. fib, ejection fraction around 25% / biventricular ICD/MALE INFERTILITY SPECIALIST-D implantation. Device check / normal function. Discharged however was unable to slat pickler most of his medications; symptoms have only worsened since that discharge she says fluid overloaded on presentation shortness of breath on presentation check Covid resume home medications as they were prescribed at recent discharge. Consult cardiology Cardiac diet Smoking cessation encouraged / provided Has not been on his PPI / contributes to his PAIN Vitals Vitals Vital Signs Date Time Temp Pulse Resp B/P (MAP) Pulse Ox O2 Delivery O2 Flow Rate FiO2 11/14/20 07:55 96.1 110 19 107/71 (83) 96 Room Air 96.1 11/13/20 20:47 2.0 Physical Exam Physical Exam GEN: Mild distress HEENT: Normal cephalic, atraumatic, external auditory canals are patent EYES: Extraocular muscles are intact, pupil are equally round and reactive to light and accommodation MUSCULOSKELETAL: Well developed , well nourished, good range of motion ENDOCRINE: No thyromegaly was palpated LYMPHATICS: No cervical chain or axillary nodes were noted HEMATOPOIETIC: No bruising NECK: Supple, no JVD, no thyromegaly was noted LUNGS: Bibasilar crackles HEART: Irregularly irregular, peripheral pulses intact ABDOMEN: MILDLY tender. Positive bowel sounds, no organomegaly, normal bowel sounds EXTREMITIES: Bilateral lower extremity pitting edema NEUROLOGIC: Normal speech and tone. A&O x 3, moves all extremities, no obvious focal deficits PSYCHIATRIC: Normal affect, normal mood. Stable SKIN: No ulcerations or rashes, good skin turgor, no jaundice VASCULAR: Good capillary refill, neurovascular bundle appears to be intact General: Alert, Oriented X3, Cooperative, No acute distress Heart: Regular rate, Normal S1, Normal S2, No murmurs Lungs: Clear Abdomen: Normal bowel sounds, Soft, No tenderness, No hepatosplenomegaly, No masses Extremities: No cyanosis, No edema Skin: No significant lesion Assessment and Plan Assessmemt and Plan Problems Medical Problems: (1) Chest pain Status: Acute (2) Hypoxia Status: Acute Comment Review of Relevant I have reviewed the following items rommel (where applicable) has been applied. Labs Laboratory Tests Test 11/12/20 14:50 White Blood Count 7.7 x10^3/uL (4.0-11.0) Red Blood Count 4.62 x10^6/uL (4.30-5.70) Hemoglobin 14.9 g/dL (13.0-17.5) Hematocrit 44.7 % (39.0-53.0) Mean Corpuscular Volume 97 fL (79-100) Mean Corpuscular Hemoglobin 32 pg (25-35) Mean Corpuscular Hemoglobin Concent 33 g/dL (31-37) Red Cell Distribution Width 13.0 % (11.5-14.5) Platelet Count 341 x10^3/uL (140-400) Neutrophils (%) (Auto) 77 % (31-73) Lymphocytes (%) (Auto) 14 % (24-48) Monocytes (%) (Auto) 7 % (0-9) Eosinophils (%) (Auto) 1 % (0-3) Basophils (%) (Auto) 1 % (0-3) Neutrophils # (Auto) 5.9 x10^3/uL (1.8-7.7) Lymphocytes # (Auto) 1.1 x10^3/uL (1.0-4.8) Monocytes # (Auto) 0.5 x10^3/uL (0.0-1.1) Eosinophils # (Auto) 0.1 x10^3/uL (0.0-0.7) Basophils # (Auto) 0.0 x10^3/uL (0.0-0.2) Sodium Level 138 mmol/L (136-145) Potassium Level 4.8 mmol/L (3.5-5.1) Chloride Level 100 mmol/L (98-107) Carbon Dioxide Level 30 mmol/L (21-32) Anion Gap 8 (6-14) Blood Urea Nitrogen 22 mg/dL (8-26) Creatinine 1.2 mg/dL (0.7-1.3) Estimated GFR (Cockcroft-Gault) 63.1 BUN/Creatinine Ratio 18 (6-20) Glucose Level 128 mg/dL (70-99) Calcium Level 8.3 mg/dL (8.5-10.1) Total Bilirubin 0.5 mg/dL (0.2-1.0) Aspartate Amino Transf (AST/SGOT) 246 U/L (15-37) Alanine Aminotransferase (ALT/SGPT) 353 U/L (16-63) Alkaline Phosphatase 82 U/L (46-116) Total Protein 6.7 g/dL (6.4-8.2) Albumin 3.3 g/dL (3.4-5.0) Albumin/Globulin Ratio 1.0 (1.0-1.7) Medications Current Medications Ondansetron HCl (Zofran) 4 mg 1X ONCE IVP Last administered on 11/10/20at 16:20; Start 11/10/20 at 14:15; Stop 11/10/20 at 14:16; Status DC Amiodarone HCl (Cordarone) 200 mg DAILY PO Last administered on 11/13/20at 09:46; Start 11/11/20 at 09:00 Aspirin (Aspirin Chewable) 81 mg DAILY PO Last administered on 11/13/20at 09:44; Start 11/11/20 at 09:00 Furosemide (Lasix) 40 mg DAILY PO Last administered on 11/13/20at 09:46; Start 11/11/20 at 09:00 Lorazepam (Ativan) 0.5 mg PRN TID PRN PO ANXIETY / AGITATION Last administered on 11/13/20at 17:16; Start 11/10/20 at 16:15 Metoprolol Succinate (Toprol Xl) 75 mg DAILY PO Last administered on 11/13/20at 09:45; Start 11/11/20 at 09:00 Sacubitril/ Valsartan (Entresto 24 Mg-26 Mg) 1 tab BID PO Last administered on 11/11/20at 09:25; Start 11/10/20 at 21:00; Stop 11/11/20 at 16:33; Status DC Sertraline HCl (Zoloft) 25 mg DAILY PO Last administered on 11/13/20at 09:46; Start 11/11/20 at 09:00 Non-Formulary Medication (Fluticasone/ Salmeterol (Advair 250-50 Diskus)) 1 puff BID IH ; Start 11/10/20 at 21:00; Status UNV Pantoprazole Sodium (Protonix) 40 mg DAILYAC PO Last administered on 11/13/20at 09:44; Start 11/11/20 at 07:30 Non-Formulary Medication (Tiotropium [place] (Spiriva)) 1 cap DAILY IH ; Start 11/11/20 at 09:00; Status UNV Ondansetron HCl (Zofran) 4 mg PRN Q6HRS PRN IVP NAUSEA/VOMITING Last administered on 11/14/20at 08:59; Start 11/10/20 at 16:15 Calcium Carbonate/ Glycine (Tums) 500 mg PRN Q3HRS PRN PO UPSET STOMACH; Start 11/10/20 at 16:15 Zolpidem Tartrate (Ambien) 5 mg PRN QHS PRN PO INSOMNIA, MAY REPEAT IN 1HR Last administered on 11/11/20at 22:29; Start 11/10/20 at 16:15 Info (Non-Icu Electrolyte Protocol) 1 ea PRN DAILY PRN MC SEE COMMENTS; Start 11/10/20 at 16:15 Oxycodone HCl (Roxicodone) 5 mg PRN Q3HRS PRN PO BREAKTHROUGH PAIN Last administered on 11/13/20at 02:38; Start 11/10/20 at 16:15 Oxycodone/ Acetaminophen (Percocet 5/325) 1 tab PRN Q4HRS PRN PO MILD PAIN, 1ST CHOICE Last administered on 11/13/20at 12:08; Start 11/10/20 at 16:15 Oxycodone/ Acetaminophen (Percocet 5/325) 2 tab PRN Q4HRS PRN PO MODERATE PAIN, SEVERE PAIN Last administered on 11/13/20at 20:47; Start 11/10/20 at 16:15 Acetaminophen (Tylenol) 650 mg PRN Q6HRS PRN PO Headaches, Temp > 101.5F; Start 11/10/20 at 16:15 Senna/Docusate Sodium (Senna Plus) 1 tab BID PO Last administered on 11/13/20at 20:46; Start 11/10/20 at 21:00 Enoxaparin Sodium (Lovenox 40mg Syringe) 40 mg Q24H SQ Last administered on 11/13/20at 20:46; Start 11/10/20 at 21:00 Albuterol/ Ipratropium (Duoneb) 3 ml RTQID NEB ; Start 11/10/20 at 20:00; Stop 11/10/20 at 20:43; Status DC Budesonide (Pulmicort) 0.5 mg RTBID NEB ; Start 11/10/20 at 20:00; Stop 11/10/20 at 20:43; Status DC Fluticasone/ Vilanterol (Breo Ellipta 100-25 Mcg) 1 puff DAILY INH Last administered on 11/13/20at 09:46; Start 11/10/20 at 21:00 Furosemide (Lasix) 40 mg 1X ONCE IVP Last administered on 11/11/20at 17:20; Start 11/11/20 at 16:45; Stop 11/11/20 at 16:46; Status DC Furosemide (Lasix) 40 mg 1X ONCE IVP ; Start 11/12/20 at 16:15; Stop 11/12/20 at 16:19; Status DC Metoprolol Tartrate (Lopressor Vial) 5 mg 1X ONCE IVP Last administered on 11/13/20at 17:18; Start 11/13/20 at 15:45; Stop 11/13/20 at 15:46; Status DC Furosemide (Lasix) 40 mg 1X ONCE IVP Last administered on 11/13/20at 17:17; Start 11/13/20 at 15:45; Stop 11/13/20 at 15:46; Status DC Active Scripts Active Ativan (Lorazepam) 0.5 Mg Tablet 0.5 Mg PO TID PRN 28 Days Amiodarone Hcl 200 Mg Tablet 200 Mg PO DAILY 30 Days Dicyclomine Hcl 10 Mg Capsule 10 Mg PO PRN QID PRN 14 Days Spiriva (Tiotropium [place]) 18 Mcg Cap.w.dev 1 Cap IH DAILY 30 Days Entresto 24 mg-26 mg Tablet (Sacubitril/Valsartan) 1 Each Tablet 1 Each PO BID 30 Days Advair 250-50 Diskus (Fluticasone/Salmeterol) 1 Each Disk.w.dev 1 Puff IH BID 30 Days Zoloft (Sertraline Hcl) 25 Mg Tablet 1 Tab PO DAILY 30 Days Protonix (Pantoprazole Sodium) 20 Mg Tablet.dr 2 Tab PO DAILY 30 Days Toprol XL (Metoprolol Succinate) 50 Mg Tab.er.24h 75 Mg PO DAILY 30 Days Furosemide 40 Mg Tablet 1 Tab PO DAILY 30 Days Reported Aspirin 81 Mg Tab.chew 1 Tab PO DAILY Vitals/I & O Vital Sign - Last 24 Hours 11/13/20 11/13/20 11/13/20 11/13/20 09:45 09:46 11:00 12:08 Temp 97.8 97.8 Pulse 112 112 111 Resp 18 18 B/P (MAP) 136/96 136/96 136/96 (109) Pulse Ox 94 O2 Delivery Room Air Nasal Cannula 11/13/20 11/13/20 11/13/20 11/13/20 12:38 15:00 17:18 19:55 Temp 97.5 97.6 97.5 97.6 Pulse 114 111 112 Resp 18 20 18 B/P (MAP) 98/78 (85) 136/96 117/71 (86) Pulse Ox 97 99 O2 Delivery Nasal Cannula Room Air Room Air 11/13/20 11/13/20 11/13/20 11/13/20 20:00 20:47 21:17 23:04 Temp 97.9 97.9 Pulse 113 Resp 19 B/P (MAP) 98/66 (77) Pulse Ox 99 99 95 O2 Delivery Room Air Room Air Room Air Room Air O2 Flow Rate 2.0 11/14/20 11/14/20 03:00 07:55 Temp 98.0 96.1 98.0 96.1 Pulse 112 110 Resp 19 19 B/P (MAP) 115/64 (81) 107/71 (83) Pulse Ox 98 96 O2 Delivery Room Air Room Air Intake and Output 11/13/20 11/13/20 11/14/20 15:00 23:00 07:00 Intake Total 400 ml Balance 400 ml Justicifation of Admission Dx: Justifications for Admission: Justification of Admission Dx: Yes MONTEZ GONZALES MD Nov 14, 2020 09:07
[2020-11-14] MEDS: PANTOPRAZOLE 40 MG TABLET.DR. PO SCH (10:33)
[2020-11-14] MEDS: METOPROLOL SUCC 24HR ER 25 MG TAB.ER.24H. PO SCH (10:34)
[2020-11-14] MEDS: AMIODARONE HCL 200 MG TABLET. PO SCH (10:34)
[2020-11-14] MEDS: FUROSEMIDE 40 MG TABLET. PO SCH (10:34)
[2020-11-14] MEDS: ASPIRIN CHEWABLE 81 MG TABLET. PO SCH (10:34)
[2020-11-14] MEDS: oxyCODONE/APAP 5/325 1 TAB TABLET PO PRN ×2 (10:35→19:55)
[2020-11-14] MEDS: SERTRALINE 25 MG TABLET. PO SCH (10:35)
[2020-11-14] MEDS: SENNOSIDES/DOCUSATE 8.6/50MG TABLET. PO SCH ×2 (10:35→19:54)
[2020-11-14] MEDS: LORazepam 0.5 MG TABLET PO PRN (10:35)
--- NOTE | 2020-11-14 11:12 | PDOC ---
Date of Service: DATE: 11/14/20 TIME: 11:07 Subjective: Subjective: Says he had a long night. Wants to sleep but doesn't want to sleep because he's afraid he'll puke. I asked about nausea - he says "I don't want to eat and puke because my thing (points to defib) will go off." Keeping water down, also has kept turkey sandwiches down since admission. Objective: Objective: D/w nurse - asking for anti-emetic and anti-anxiety med - he says started after Lasix. Has not witnessed vomiting. Vital Signs: Vital Signs Date Time Temp Pulse Resp B/P (MAP) Pulse Ox O2 Delivery O2 Flow Rate FiO2 11/14/20 10:35 18 Nasal Cannula 11/14/20 10:34 110 107/71 11/14/20 07:55 96.1 96 96.1 11/13/20 20:47 2.0 PE: GEN: sitting on edge of bed LUNGS: diminished HEART: irregular/tachycardic ABD: right abd tender to light touch NEURO/PSYCH: A & O 3, anxious A/P: CHF, A Fib, NICM, anxiety, non-compliance Abd pain, ?nausea, h/o GERD - no concern for acute GB issue Elevated AST and ALT (not checked today) - suspect related to heart failure Alcohol history COVID negative -- Continue PPI - can change to IV if needed. Encouraged PO. He does not provide a clear history. Like last time, anxiety seems to be playing a part. If really nauseated, oxycodone probably not helping. Justicifation of Admission Dx: Justifications for Admission: Justification of Admission Dx: Yes GEOVANNI PASTOR Nov 14, 2020 11:12
--- NOTE | 2020-11-14 11:29 | PDOC ---
BERHANE SERRANO THERAPY SITE COORDINATOR 11/14/20 1129: CARDIO Progress Notes Date and Time Date of Service 11/14/20 Time of Evaluation 1130 Subjective Subjective: Other (doesn't feel well, c/o intermittent abdominal pain, nausea, SOA, panic attacks ) Vitals Vitals Vital Signs Date Time Temp Pulse Resp B/P (MAP) Pulse Ox O2 Delivery O2 Flow Rate FiO2 11/14/20 11:05 18 Room Air 11/14/20 10:34 110 107/71 11/14/20 07:55 96.1 96 96.1 11/13/20 20:47 2.0 Weight Weight [ ] Input and Output Intake and Output Intake and Output 11/14/20 07:00 Intake Total 400 ml Balance 400 ml Intake Oral 400 ml # Voids 9 Physical Exam HEENT: Neck Supple W Full Motion Chest: Symmetric LUNGS: Other (diminished bases) Heart: irregularly irregular (aflutter ) Abdomen: Soft N/T Extremities: Other (trace bilateral LE edema ) Neurology: alert, oriented, follow commands, other (anxious) Assessment Assessment 1. Acute on chronic systolic CHF; better compensated s/p IV Lasix x1 2. Nonischemic cardiomyopathy; S/p biventricular ICD/FINISH CLEANER-D implantation. Device check showed normal function. 2D echo showed LVEF 25 to 30%. 3. Chest pain, atypical. Cardiac catheterization approximately 1 year ago reportedly did not show any significant coronary disease. 4. PAFIB/flutter; presently v-paced with underlying aflutter. rate 115. ? symptomatic from AFIB/flutter (reports dyspnea, panic attack, nausea) 5. Hyperkalemia; better. Entresto held 6. Abdominal pain, nausea; US noted with CBD dilation. as per GI 7. Anxiety, panic attacks Recommendations Repeat labs EKG, trop level Obtain records from prior [facility] Increase Metoprolol for better rate control. Will give dose of IV Dig x1 as BP is low end Amiodarone for rhythm maintenance Eliquis for stroke prophylaxis Consider ablation with primary scrub technician Supportive care Justicifation of Admission Dx: Justifications for Admission: Justification of Admission Dx: Yes TIBURCIO WATT MD 11/15/20 0523: CARDIO Progress Notes Assessment Assessment Patient seen and examined 11/14/20. Agree wit MAINFRAME ARCHITECT's assessment and plan. Acute on chr systolic HF - uncertain fluid status since patient's symptoms do not correlate with physical exam, labs etc Plan right heart cath to determine filling pressures and evaluate need for inotropes PAF - V paced on tele with probably underlying atrial flutter - continue amiodarone for rhythm maintenance and eliquis for stroke prophylaxis Consider AF ablation with primary scrub technician BERHANE SERRANO APRN Nov 14, 2020 11:29 TIBURCIO WATT MD Nov 15, 2020 05:23
[2020-11-14] MEDS ORDERED: DIGOXIN IV 500 MCG/2 ML AMPUL. IV ONE (11:30)
[2020-11-14] MEDS ORDERED: METOPROLOL SUCC 24HR ER 25 MG TAB.ER.24H. PO ONE (11:30)
[2020-11-14] MEDS: IPRATRPIUM/ALBUTEROL 0.5/2.5MG 3 ML NEBU. NEB SCH ×3 (12:19→21:13)
--- NOTE | 2020-11-14 12:21 | NUR ---
SS following up with discharge planning. SS reviewed pt chart and discussed with pt RN. Pt is currently requiring oxygen at two liters nasal canula PRN. COVID19 negative. GI and Cardiology following. Pt having nausea and vomiting today. Discharge plan is currently to home when medically ready for discharge. SS will continue to follow for discharge planning.
[2020-11-14] MEDS ORDERED: FUROSEMIDE 40 MG/4 ML VIAL. IVP ONE (14:30)
[2020-11-14] MEDS ORDERED: IV NORMAL SALINE 1000ML BAG 1,000 ML IV SCH (14:45)
[2020-11-14] MEDS ORDERED: IV NORMAL SALINE 1000ML BAG 1,000 ML IV ONE (15:00)
[2020-11-14 15:23] LABS: CALCIUM 9.3 mg/dL (8.5-10.1); CREATININE 2.4 mg/dL (0.7-1.3); GFR 28.4
--- NOTE | 2020-11-14 15:55 | EKG ---
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
[2020-11-14 16:12] LABS: HEMATOCRIT 47.1 % (39.0-53.0); HEMOGLOBIN 15.5 g/dL (13.0-17.5); RED BLOOD COUNT 4.81 x10^6/uL (4.30-5.70); RED CELL DISTRIBUTION WIDTH 13.5 % (11.5-14.5); WHITE BLOOD COUNT 8.9 x10^3/uL (4.0-11.0)
[2020-11-14] MEDS ORDERED: SODIUM BICARB ADULT 8.4% 50 MEQ/50 ML DISP.SYRIN. IV ONE (18:00)
[2020-11-14] MEDS ORDERED: DEXTROSE 50% 25 GM / 50ML DISP.SYRIN. IV ONE (18:00)
[2020-11-14] MEDS ORDERED: NORMAL SALINE IV ONE (18:15)
[2020-11-14] MEDS ORDERED: INSULIN REGULAR 100 UNIT/ML 3ML VIAL. IV ONE (18:15)
[2020-11-14] MEDS ORDERED: INSULIN REGULAR IV ONE (18:15)
[2020-11-14] MEDS: ENOXAPARIN 40 MG/0.4 ML SYRINGE. SQ SCH (19:54)
[2020-11-15] VITALS (20 sets, daily range): BP systolic 99–125; BP diastolic 58–88
[2020-11-15] MEDS: ACETAMINOPHEN 325 MG TABLET. PO PRN ×2 (03:39→13:56)
[2020-11-15 04:40] LABS: BASO # 0.1 x10^3/uL (0.0-0.2); BASO % 1 % (0-3); EOS # 0.1 x10^3/uL (0.0-0.7); EOS % 1 % (0-3); HEMATOCRIT 40.8 % (39.0-53.0); LYMPH # 2.4 x10^3/uL (1.0-4.8); LYMPH % 23 % (24-48); MEAN CORPUSCULAR HEMOGLOBIN 33 pg (25-35); MEAN CORPUSCULAR HGB CONC 34 g/dL (31-37); MEAN CORPUSCULAR VOLUME 96 fL (79-100); MONO # 1.2 x10^3/uL (0.0-1.1); MONO % 11 % (0-9); NEUT # 6.6 x10^3/uL (1.8-7.7); NEUT % 64 % (31-73); PLATELET COUNT 291 x10^3/uL (140-400); RED BLOOD COUNT 4.24 x10^6/uL (4.30-5.70); RED CELL DISTRIBUTION WIDTH 13.1 % (11.5-14.5); WHITE BLOOD COUNT 10.4 x10^3/uL (4.0-11.0)
[2020-11-15] MEDS: IPRATRPIUM/ALBUTEROL 0.5/2.5MG 3 ML NEBU. NEB SCH ×5 (04:57→21:39)
[2020-11-15 05:05] LABS: ALBUMIN 2.9 g/dL (3.4-5.0); ALBUMIN/GLOBULIN RATIO 0.9 (1.0-1.7); CALCIUM 7.6 mg/dL (8.5-10.1); CREATININE 1.7 mg/dL (0.7-1.3); GFR 42.2; POTASSIUM 3.8 mmol/L (3.5-5.1); TOTAL BILIRUBIN 0.9 mg/dL (0.2-1.0); TOTAL PROTEIN 6.2 g/dL (6.4-8.2)
--- NOTE | 2020-11-15 07:27 | PDOC ---
PROGRESS NOTES Date of Service: DATE: 11/15/20 TIME: 07:26 Chief Complaint Chief Complaint impression A. fib, CAD, k= 5.5 CHF 25% ejection fraction Patient recently admitted for APayal knapp, ejection fraction around 25% / biventricular ICD/MUTUAL FUND MANAGER-D implantation. Device check / normal function. Discharged however was unable to order picker/assembler most of his medications; symptoms have only worsened since that discharge she says fluid overloaded on presentation shortness of breath on presentation check Covid resume home medications as they were prescribed at recent discharge. Consult cardiology Cardiac diet Smoking cessation encouraged / provided DVT prophylaxis new onset nausea, abd discomfort 11-12 Has not been on his PPI which contributes to his issues History of Present Illness History of Present Illness Chief Complaint: Problems: (1) Chest pain (2) Hypoxia (3) Shortness of breath Chief Complain: Chest pain, shortness of breath History of Present Illness: HPI: Patient is a 55-year-old male presenting today due to worsening shortness of breath and chest pain. Patient was recently admitted after he thought his ICD fired. He was here for several days and was found to be atrial fibrillation with RVR. After he discharged he was unable to order picker/assembler some of his medications, including his amiodarone, due to cost. He was able to get his Lopressor and Lasix. History notable for CAD, CHF ejection fraction 25%. Patient says his chest pain has persisted since last admission. He says it did get worse after discharge since he was unable to order picker/assembler any of his medications. Denies any sort of productive cough or fevers. Patient presented the emergency room found to be relatively fluid overloaded, patient also had a 2 L oxygen requirement after he was found to be saturating mid 80s on room air. Patient was denying any sort of headache, vision changes, abdominal pain, joint pain, dysuria. Past Medical/Surgical History: PMH/PSH: A. fib, CAD, CHF 25% ejection fraction Allergies: Allergies: Coded Allergies: No Known Drug Allergies (Unverified , 10/31/20) Family History: Family History: CAD, hypertension Social History: Social History: Smoker, frequent alcohol use, denies drug use Current Medications: Current Medications Current Medications Ondansetron HCl (Zofran) 4 mg 1X ONCE IVP Last administered on 11/10/20at 16:20; Start 11/10/20 at 14:15; Stop 11/10/20 at 14:16; Status DC Amiodarone HCl (Cordarone) 200 mg DAILY PO ; Start 11/11/20 at 09:00 Aspirin (Aspirin Chewable) 81 mg DAILY PO ; Start 11/11/20 at 09:00 Furosemide (Lasix) 40 mg DAILY PO ; Start 11/11/20 at 09:00 Lorazepam (Ativan) 0.5 mg PRN TID PRN PO ANXIETY / AGITATION; Start 11/10/20 at 16:15 Metoprolol Succinate (Toprol Xl) 75 mg DAILY PO ; Start 11/11/20 at 09:00 Sacubitril/ Valsartan (Entresto 24 Mg-26 Mg) 1 tab BID PO ; Start 11/10/20 at 21:00 Sertraline HCl (Zoloft) 25 mg DAILY PO ; Start 11/11/20 at 09:00 Non-Formulary Medication (Fluticasone/ Salmeterol (Advair 250-50 Diskus)) 1 puff BID IH ; Start 11/10/20 at 21:00; Status UNV Pantoprazole Sodium (Protonix) 40 mg DAILYAC PO ; Start 11/11/20 at 07:30 Non-Formulary Medication (Tiotropium [place] (Spiriva)) 1 cap DAILY IH ; Start 11/11/20 at 09:00; Status UNV Ondansetron HCl (Zofran) 4 mg PRN Q6HRS PRN IVP NAUSEA/VOMITING; Start 11/10/20 at 16:15 Calcium Carbonate/ Glycine (Tums) 500 mg PRN Q3HRS PRN PO UPSET STOMACH; Start 11/10/20 at 16:15 Zolpidem Tartrate (Ambien) 5 mg PRN QHS PRN PO INSOMNIA, MAY REPEAT IN 1HR; Start 11/10/20 at 16:15 Info (Non-Icu Electrolyte Protocol) 1 ea PRN DAILY PRN MC SEE COMMENTS; Start 11/10/20 at 16:15 Oxycodone HCl (Roxicodone) 5 mg PRN Q3HRS PRN PO BREAKTHROUGH PAIN; Start 11/10/20 at 16:15 Oxycodone/ Acetaminophen (Percocet 5/325) 1 tab PRN Q4HRS PRN PO MILD PAIN, 1ST CHOICE; Start 11/10/20 at 16:15 Oxycodone/ Acetaminophen (Percocet 5/325) 2 tab PRN Q4HRS PRN PO MODERATE PAIN, SEVERE PAIN; Start 11/10/20 at 16:15 Acetaminophen (Tylenol) 650 mg PRN Q6HRS PRN PO Headaches, Temp > 101.5F; Start 11/10/20 at 16:15 Senna/Docusate Sodium (Senna Plus) 1 tab BID PO ; Start 11/10/20 at 21:00 Enoxaparin Sodium (Lovenox 40mg Syringe) 40 mg Q24H SQ ; Start 11/10/20 at 21:00 Albuterol/ Ipratropium (Duoneb) 3 ml RTQID NEB ; Start 11/10/20 at 20:00 Budesonide (Pulmicort) 0.5 mg RTBID NEB ; Start 11/10/20 at 20:00 Active Scripts Active Ativan (Lorazepam) 0.5 Mg Tablet 0.5 Mg PO TID PRN 28 Days Amiodarone Hcl 200 Mg Tablet 200 Mg PO DAILY 30 Days Dicyclomine Hcl 10 Mg Capsule 10 Mg PO PRN QID PRN 14 Days Spiriva (Tiotropium [place]) 18 Mcg Cap.w.dev 1 Cap IH DAILY 30 Days Entresto 24 mg-26 mg Tablet (Sacubitril/Valsartan) 1 Each Tablet 1 Each PO BID 30 Days Advair 250-50 Diskus (Fluticasone/Salmeterol) 1 Each Disk.w.dev 1 Puff IH BID 30 Days Zoloft (Sertraline Hcl) 25 Mg Tablet 1 Tab PO DAILY 30 Days Protonix (Pantoprazole Sodium) 20 Mg Tablet.dr 2 Tab PO DAILY 30 Days Toprol XL (Metoprolol Succinate) 50 Mg Tab.er.24h 75 Mg PO DAILY 30 Days Furosemide 40 Mg Tablet 1 Tab PO DAILY 30 Days Reported Aspirin 81 Mg Tab.chew 1 Tab PO DAILY ROS: Review of Systems Review of System Negative unless noted in HPI - covid neg abdominal discomfort, nausea new 11-03 ct Gallbladder wall thickening and pericholecystic fluid, which could represent acute cholecystitis. No radiopaque stones are seen by CT. Correlate with laboratory values. If there is persistent concern for choledocholithiasis, MRI could be obtained. GI CONSULTED SONO ORDERED, NPO The common duct is mildly dilated and contains some echogenic material. This may reflect artifact or choledocholithiasis. ON ultrasound /MRCP could further evaluate if the diagnosis is unclear. A. fib, CAD, CHF 25% ejection fraction Patient recently admitted for A. fib, ejection fraction around 25% / biventricular ICD/MUTUAL FUND MANAGER-D implantation. Device check / normal function. Discharged however was unable to order picker/assembler most of his medications; symptoms have only worsened since that discharge she says fluid overloaded on presentation shortness of breath on presentation check Covid resume home medications as they were prescribed at recent discharge. Consult cardiology Cardiac diet Smoking cessation encouraged / provided Has not been on his PPI / contributes to his PAIN surgery consult 914 labs pending covid neg abdominal discomfort, nausea new 11-03 ct Gallbladder wall thickening and pericholecystic fluid, which could represent acute cholecystitis. No radiopaque stones are seen by CT. Correlate with laboratory values. If there is persistent concern for choledocholithiasis, MRI could be obtained. GI CONSULTED SONO ORDERED, NPO A. fib, CAD, CHF 25% ejection fraction Patient recently admitted for A. fib, ejection fraction around 25% / biventricular ICD/MUTUAL FUND MANAGER-D implantation. Device check / normal function. Discharged however was unable to order picker/assembler most of his medications; symptoms have only worsened since that discharge she says fluid overloaded on presentation shortness of breath on presentation check Covid resume home medications as they were prescribed at recent discharge. Consult cardiology Cardiac diet Smoking cessation encouraged / provided Has not been on his PPI / contributes to his PAIN 9-13 labs pending covid neg A. fib, CAD, CHF 25% ejection fraction Patient recently admitted for A. fib, ejection fraction around 25% / biventricular ICD/MUTUAL FUND MANAGER-D implantation. Device check / normal function. Discharged however was unable to order picker/assembler most of his medications; symptoms have only worsened since that discharge she says fluid overloaded on presentation shortness of breath on presentation check Covid resume home medications as they were prescribed at recent discharge. Consult cardiology Cardiac diet Smoking cessation encouraged / provided 9-16 covid neg abdominal discomfort, nausea new - ct Gallbladder wall thickening and pericholecystic fluid, which could represent acute cholecystitis. No radiopaque stones are seen by CT. Correlate with laboratory values. If there is persistent concern for choledocholithiasis, MRI could be obtained. GI CONSULTED SONO ORDERED,try clears The common duct is mildly dilated and contains some echogenic material. This may reflect artifact or choledocholithiasis. ON ultrasound /MRCP could further evaluate if the diagnosis is unclear. A. fib, CAD, CHF 25% ejection fraction Patient recently admitted for A. fib, ejection fraction around 25% / biventricular ICD/MUTUAL FUND MANAGER-D implantation. Device check / normal function. Discharged however was unable to order picker/assembler most of his medications; symptoms have only worsened since that discharge she says fluid overloaded on presentation shortness of breath on presentation check Covid resume home medications as they were prescribed at recent discharge. Consult cardiology Cardiac diet Smoking cessation encouraged / provided Has not been on his PPI / contributes to his PAIN surgery consult nonsurgical abdomen D/W DR GARCIA IN [place] 11-15 Elevated right and left-sided filling pressures RIGHT HEART CATH 11-15 No evidence of intracardiac shunt Aggressive diuresis with inotropic support covid neg abdominal discomfort, nausea new 11-03 ct Gallbladder wall thickening and pericholecystic fluid, which could represent acute cholecystitis. No radiopaque stones are seen by CT. Correlate with laboratory values. If there is persistent concern for choledocholithiasis, MRI could be obtained. GI CONSULTED SONO ORDERED,try clears The common duct is mildly dilated and contains some echogenic material. This may reflect artifact or choledocholithiasis. ON ultrasound /MRCP could further evaluate if the diagnosis is unclear. A. fib, CAD, CHF 25% ejection fraction Patient recently admitted for A. fib, ejection fraction around 25% / biventricular ICD/MUTUAL FUND MANAGER-D implantation. Device check / normal function. Discharged however was unable to order picker/assembler most of his medications; symptoms have only worsened since that discharge she says fluid overloaded on presentation shortness of breath on presentation check Covid resume home medications as they were prescribed at recent discharge. Consult cardiology Cardiac diet Smoking cessation encouraged / provided Has not been on his PPI / contributes to his PAIN surgery consult nonsurgical abdomen D/W DR GARCIA IN [place] 11-12 labs pending covid neg abdominal discomfort, nausea new 11-03 ct Gallbladder wall thickening and pericholecystic fluid, which could represent acute cholecystitis. No radiopaque stones are seen by CT. Correlate with laboratory values. If there is persistent concern for choledocholithiasis, MRI could be obtained. GI CONSULTED SONO ORDERED, NPO A. fib, CAD, CHF 25% ejection fraction Patient recently admitted for A. fib, ejection fraction around 25% / biventricular ICD/MUTUAL FUND MANAGER-D implantation. Device check / normal function. Discharged however was unable to order picker/assembler most of his medications; symptoms have only worsened since that discharge she says fluid overloaded on presentation shortness of breath on presentation check Covid resume home medications as they were prescribed at recent discharge. Consult cardiology Cardiac diet Smoking cessation encouraged / provided Has not been on his PPI / contributes to his PAIN Vitals Vitals Vital Signs Date Time Temp Pulse Resp B/P (MAP) Pulse Ox O2 Delivery O2 Flow Rate FiO2 11/15/20 04:57 93 Room Air 11/15/20 03:00 97.8 109 16 111/75 (87) 2.0 97.8 Physical Exam Physical Exam GEN: Mild distress HEENT: Normal cephalic, atraumatic, external auditory canals are patent EYES: Extraocular muscles are intact, pupil are equally round and reactive to light and accommodation MUSCULOSKELETAL: Well developed , well nourished, good range of motion ENDOCRINE: No thyromegaly was palpated LYMPHATICS: No cervical chain or axillary nodes were noted HEMATOPOIETIC: No bruising NECK: Supple, no JVD, no thyromegaly was noted LUNGS: Bibasilar crackles HEART: Irregularly irregular, peripheral pulses intact ABDOMEN: MILDLY tender. Positive bowel sounds, no organomegaly, normal bowel sounds EXTREMITIES: Bilateral lower extremity pitting edema NEUROLOGIC: Normal speech and tone. A&O x 3, moves all extremities, no obvious focal deficits PSYCHIATRIC: Normal affect, normal mood. Stable SKIN: No ulcerations or rashes, good skin turgor, no jaundice VASCULAR: Good capillary refill, neurovascular bundle appears to be intact General: Alert, Oriented X3, Cooperative, No acute distress Heart: Regular rate, Normal S1, Normal S2, No murmurs Lungs: Clear Abdomen: Normal bowel sounds, Soft, No tenderness, No hepatosplenomegaly, No masses Extremities: No cyanosis, No edema Skin: No significant lesion Labs LABS APPROVED REPORT Technologist: Hardeep Echeverria RT(R)() Nurse: Lizbet Ledezma RN Procedure(s) performed: RIGHT HEART CATHETERIZATION MODERATE SEDATION TIME: 38 MINUTS FLUORO TIME: 2.7 MIN DOSE: [id number] INDICATION The indication(s) include : Acute on chronic systolic heart failure. CASE TECHNIQUE IV conscious sedation was used throughout procedure with appropriate monitoring and was performed in the presence of a registered nurse who was an independent trained observer other than the physician performing the procedure. Specimen(s) Removed: No Estimated Blood loss: 20 cc's. PROCEDURE NARRATIVE After explaining the risk, benefits and alternative options, informed consent was obtained for patient. Patient was brought to the cardiac Ship [facility] and his right groin was prepped and draped in the usual fashion. 20 cc of 2% lidocaine was infiltrated into the skin and subcutaneous tissues for local anesthesia. Venous access was obtained in the left common femoral vein and 8 [place] sheath was inserted. A 7.5 [place] Sanford-Rinku catheter was then advanced under fluoroscopy guidance and intracardiac pressures, oxygen saturations and cardiac output by Amadeo method measured. Patient tolerated the procedure well. Hemostasis was achieved using manual compression. There were no immediate complications. FINDINGS 1. Intracardiac pressures: Mean right atrial pressure 19 mmHg, right ventricular pressure 51/11 mmHg, pulmonary capillary wedge pressure 26 mmHg, pulmonary artery pressure 57/32 mmHg with a mean PA pressure of 41 mmHg. This is consistent with elevated right and left-sided filling pressures and mild to moderate pulmonary hypertension probably from fluid overload. 2. Oxygen saturations: Right atrium 48%, pulmonary artery 53%. No evidence of intracardiac shunt. 3. Cardiac output by Amadeo method 2.9 L/min. Conclusion 1. Elevated right and left-sided filling pressures 2. No evidence of intracardiac shunt Recommendations Aggressive diuresis with inotropic support Signed by : Tiburcio Watt, Electronically Approved : 11/15/2020 12:04:28 DICTATED and SIGNED BY: TIBURCIO WATT MD DATE: 11/15/20 [id number] Laboratory Tests Test 11/14/20 15:05 11/14/20 16:35 11/14/20 20:45 11/15/20 04:15 White Blood Count 8.9 x10^3/uL (4.0-11.0) 10.4 x10^3/uL (4.0-11.0) Red Blood Count 4.81 x10^6/uL (4.30-5.70) 4.24 x10^6/uL (4.30-5.70) Hemoglobin 15.5 g/dL (13.0-17.5) 14.0 g/dL (13.0-17.5) Hematocrit 47.1 % (39.0-53.0) 40.8 % (39.0-53.0) Mean Corpuscular Volume 98 fL (79-100) 96 fL (79-100) Mean Corpuscular Hemoglobin 32 pg (25-35) 33 pg (25-35) Mean Corpuscular Hemoglobin Concent 33 g/dL (31-37) 34 g/dL (31-37) Red Cell Distribution Width 13.5 % (11.5-14.5) 13.1 % (11.5-14.5) Platelet Count 375 x10^3/uL (140-400) 291 x10^3/uL (140-400) Sodium Level 136 mmol/L (136-145) 132 mmol/L (136-145) Potassium Level 6.0 mmol/L (3.5-5.1) 3.8 mmol/L (3.5-5.1) Chloride Level 96 mmol/L (98-107) 93 mmol/L (98-107) Carbon Dioxide Level 24 mmol/L (21-32) 27 mmol/L (21-32) Anion Gap 16 (6-14) 12 (6-14) Blood Urea Nitrogen 36 mg/dL (8-26) 31 mg/dL (8-26) Creatinine 2.4 mg/dL (0.7-1.3) 1.7 mg/dL (0.7-1.3) Estimated GFR (Cockcroft-Gault) 28.4 42.2 Glucose Level 88 mg/dL (70-99) 74 mg/dL (70-99) Calcium Level 9.3 mg/dL (8.5-10.1) 7.6 mg/dL (8.5-10.1) Troponin I Quantitative 0.074 ng/mL (0.000-0.055) 0.050 ng/mL (0.000-0.055) Lactic Acid Level 6.3 mmol/L (0.4-2.0) 5.7 mmol/L (0.4-2.0) Neutrophils (%) (Auto) 64 % (31-73) Lymphocytes (%) (Auto) 23 % (24-48) Monocytes (%) (Auto) 11 % (0-9) Eosinophils (%) (Auto) 1 % (0-3) Basophils (%) (Auto) 1 % (0-3) Neutrophils # (Auto) 6.6 x10^3/uL (1.8-7.7) Lymphocytes # (Auto) 2.4 x10^3/uL (1.0-4.8) Monocytes # (Auto) 1.2 x10^3/uL (0.0-1.1) Eosinophils # (Auto) 0.1 x10^3/uL (0.0-0.7) Basophils # (Auto) 0.1 x10^3/uL (0.0-0.2) BUN/Creatinine Ratio 18 (6-20) Total Bilirubin 0.9 mg/dL (0.2-1.0) Aspartate Amino Transf (AST/SGOT) 3942 U/L (15-37) Alanine Aminotransferase (ALT/SGPT) 2789 U/L (16-63) Alkaline Phosphatase 70 U/L (46-116) Total Protein 6.2 g/dL (6.4-8.2) Albumin 2.9 g/dL (3.4-5.0) Albumin/Globulin Ratio 0.9 (1.0-1.7) Assessment and Plan Assessmemt and Plan Problems Medical Problems: (1) Chest pain Status: Acute (2) Hypoxia Status: Acute Comment Review of Relevant I have reviewed the following items rommel (where applicable) has been applied. Labs Laboratory Tests Test 11/14/20 15:05 11/14/20 16:35 11/14/20 20:45 11/15/20 04:15 White Blood Count 8.9 x10^3/uL (4.0-11.0) 10.4 x10^3/uL (4.0-11.0) Red Blood Count 4.81 x10^6/uL (4.30-5.70) 4.24 x10^6/uL (4.30-5.70) Hemoglobin 15.5 g/dL (13.0-17.5) 14.0 g/dL (13.0-17.5) Hematocrit 47.1 % (39.0-53.0) 40.8 % (39.0-53.0) Mean Corpuscular Volume 98 fL (79-100) 96 fL (79-100) Mean Corpuscular Hemoglobin 32 pg (25-35) 33 pg (25-35) Mean Corpuscular Hemoglobin Concent 33 g/dL (31-37) 34 g/dL (31-37) Red Cell Distribution Width 13.5 % (11.5-14.5) 13.1 % (11.5-14.5) Platelet Count 375 x10^3/uL (140-400) 291 x10^3/uL (140-400) Sodium Level 136 mmol/L (136-145) 132 mmol/L (136-145) Potassium Level 6.0 mmol/L (3.5-5.1) 3.8 mmol/L (3.5-5.1) Chloride Level 96 mmol/L (98-107) 93 mmol/L (98-107) Carbon Dioxide Level 24 mmol/L (21-32) 27 mmol/L (21-32) Anion Gap 16 (6-14) 12 (6-14) Blood Urea Nitrogen 36 mg/dL (8-26) 31 mg/dL (8-26) Creatinine 2.4 mg/dL (0.7-1.3) 1.7 mg/dL (0.7-1.3) Estimated GFR (Cockcroft-Gault) 28.4 42.2 Glucose Level 88 mg/dL (70-99) 74 mg/dL (70-99) Calcium Level 9.3 mg/dL (8.5-10.1) 7.6 mg/dL (8.5-10.1) Troponin I Quantitative 0.074 ng/mL (0.000-0.055) 0.050 ng/mL (0.000-0.055) Lactic Acid Level 6.3 mmol/L (0.4-2.0) 5.7 mmol/L (0.4-2.0) Neutrophils (%) (Auto) 64 % (31-73) Lymphocytes (%) (Auto) 23 % (24-48) Monocytes (%) (Auto) 11 % (0-9) Eosinophils (%) (Auto) 1 % (0-3) Basophils (%) (Auto) 1 % (0-3) Neutrophils # (Auto) 6.6 x10^3/uL (1.8-7.7) Lymphocytes # (Auto) 2.4 x10^3/uL (1.0-4.8) Monocytes # (Auto) 1.2 x10^3/uL (0.0-1.1) Eosinophils # (Auto) 0.1 x10^3/uL (0.0-0.7) Basophils # (Auto) 0.1 x10^3/uL (0.0-0.2) BUN/Creatinine Ratio 18 (6-20) Total Bilirubin 0.9 mg/dL (0.2-1.0) Aspartate Amino Transf (AST/SGOT) 3942 U/L (15-37) Alanine Aminotransferase (ALT/SGPT) 2789 U/L (16-63) Alkaline Phosphatase 70 U/L (46-116) Total Protein 6.2 g/dL (6.4-8.2) Albumin 2.9 g/dL (3.4-5.0) Albumin/Globulin Ratio 0.9 (1.0-1.7) Laboratory Tests Test 11/14/20 15:05 11/14/20 16:35 11/14/20 20:45 11/15/20 04:15 White Blood Count 8.9 x10^3/uL (4.0-11.0) 10.4 x10^3/uL (4.0-11.0) Red Blood Count 4.81 x10^6/uL (4.30-5.70) 4.24 x10^6/uL (4.30-5.70) Hemoglobin 15.5 g/dL (13.0-17.5) 14.0 g/dL (13.0-17.5) Hematocrit 47.1 % (39.0-53.0) 40.8 % (39.0-53.0) Mean Corpuscular Volume 98 fL (79-100) 96 fL (79-100) Mean Corpuscular Hemoglobin 32 pg (25-35) 33 pg (25-35) Mean Corpuscular Hemoglobin Concent 33 g/dL (31-37) 34 g/dL (31-37) Red Cell Distribution Width 13.5 % (11.5-14.5) 13.1 % (11.5-14.5) Platelet Count 375 x10^3/uL (140-400) 291 x10^3/uL (140-400) Sodium Level 136 mmol/L (136-145) 132 mmol/L (136-145) Potassium Level 6.0 mmol/L (3.5-5.1) 3.8 mmol/L (3.5-5.1) Chloride Level 96 mmol/L (98-107) 93 mmol/L (98-107) Carbon Dioxide Level 24 mmol/L (21-32) 27 mmol/L (21-32) Anion Gap 16 (6-14) 12 (6-14) Blood Urea Nitrogen 36 mg/dL (8-26) 31 mg/dL (8-26) Creatinine 2.4 mg/dL (0.7-1.3) 1.7 mg/dL (0.7-1.3) Estimated GFR (Cockcroft-Gault) 28.4 42.2 Glucose Level 88 mg/dL (70-99) 74 mg/dL (70-99) Calcium Level 9.3 mg/dL (8.5-10.1) 7.6 mg/dL (8.5-10.1) Troponin I Quantitative 0.074 ng/mL (0.000-0.055) 0.050 ng/mL (0.000-0.055) Lactic Acid Level 6.3 mmol/L (0.4-2.0) 5.7 mmol/L (0.4-2.0) Neutrophils (%) (Auto) 64 % (31-73) Lymphocytes (%) (Auto) 23 % (24-48) Monocytes (%) (Auto) 11 % (0-9) Eosinophils (%) (Auto) 1 % (0-3) Basophils (%) (Auto) 1 % (0-3) Neutrophils # (Auto) 6.6 x10^3/uL (1.8-7.7) Lymphocytes # (Auto) 2.4 x10^3/uL (1.0-4.8) Monocytes # (Auto) 1.2 x10^3/uL (0.0-1.1) Eosinophils # (Auto) 0.1 x10^3/uL (0.0-0.7) Basophils # (Auto) 0.1 x10^3/uL (0.0-0.2) BUN/Creatinine Ratio 18 (6-20) Total Bilirubin 0.9 mg/dL (0.2-1.0) Aspartate Amino Transf (AST/SGOT) 3942 U/L (15-37) Alanine Aminotransferase (ALT/SGPT) 2789 U/L (16-63) Alkaline Phosphatase 70 U/L (46-116) Total Protein 6.2 g/dL (6.4-8.2) Albumin 2.9 g/dL (3.4-5.0) Albumin/Globulin Ratio 0.9 (1.0-1.7) Medications Current Medications Ondansetron HCl (Zofran) 4 mg 1X ONCE IVP Last administered on 11/10/20at 16:20; Start 11/10/20 at 14:15; Stop 11/10/20 at 14:16; Status DC Amiodarone HCl (Cordarone) 200 mg DAILY PO Last administered on 11/14/20at 10:34; Start 11/11/20 at 09:00 Aspirin (Aspirin Chewable) 81 mg DAILY PO Last administered on 11/14/20at 10:34; Start 11/11/20 at 09:00 Furosemide (Lasix) 40 mg DAILY PO Last administered on 11/14/20at 10:34; Start 11/11/20 at 09:00; Stop 11/14/20 at 15:28; Status DC Lorazepam (Ativan) 0.5 mg PRN TID PRN PO ANXIETY / AGITATION Last administered on 11/14/20at 10:35; Start 11/10/20 at 16:15 Metoprolol Succinate (Toprol Xl) 75 mg DAILY PO Last administered on 11/14/20at 10:34; Start 11/11/20 at 09:00; Stop 11/14/20 at 11:27; Status DC Sacubitril/ Valsartan (Entresto 24 Mg-26 Mg) 1 tab BID PO Last administered on 11/11/20 09:25; Start 11/10/20 at 21:00; Stop 11/11/20 at 16:33; Status DC Sertraline HCl (Zoloft) 25 mg DAILY PO Last administered on 11/14/20at 10:35; Start 11/11/20 at 09:00 Non-Formulary Medication (Fluticasone/ Salmeterol (Advair 250-50 Diskus)) 1 puff BID IH ; Start 11/10/20 at 21:00; Status UNV Pantoprazole Sodium (Protonix) 40 mg DAILYAC PO Last administered on 11/14/20at 10:33; Start 11/11/20 at 07:30 Non-Formulary Medication (Tiotropium [place] (Spiriva)) 1 cap DAILY IH ; Start 11/11/20 at 09:00; Status UNV Ondansetron HCl (Zofran) 4 mg PRN Q6HRS PRN IVP NAUSEA/VOMITING Last administered on 11/14/20at 08:59; Start 11/10/20 at 16:15 Calcium Carbonate/ Glycine (Tums) 500 mg PRN Q3HRS PRN PO UPSET STOMACH; Start 11/10/20 at 16:15 Zolpidem Tartrate (Ambien) 5 mg PRN QHS PRN PO INSOMNIA, MAY REPEAT IN 1HR Last administered on 11/11/20at 22:29; Start 11/10/20 at 16:15 Info (Non-Icu Electrolyte Protocol) 1 ea PRN DAILY PRN MC SEE COMMENTS; Start 11/10/20 at 16:15 Oxycodone HCl (Roxicodone) 5 mg PRN Q3HRS PRN PO BREAKTHROUGH PAIN Last administered on 11/13/20at 02:38; Start 11/10/20 at 16:15 Oxycodone/ Acetaminophen (Percocet 5/325) 1 tab PRN Q4HRS PRN PO MILD PAIN, 1ST CHOICE Last administered on 11/14/20at 10:35; Start 11/10/20 at 16:15 Oxycodone/ Acetaminophen (Percocet 5/325) 2 tab PRN Q4HRS PRN PO MODERATE PAIN, SEVERE PAIN Last administered on 11/14/20at 19:55; Start 11/10/20 at 16:15 Acetaminophen (Tylenol) 650 mg PRN Q6HRS PRN PO Headaches, Temp > 101.5F Last administered on 11/15/20at 03:39; Start 11/10/20 at 16:15 Senna/Docusate Sodium (Senna Plus) 1 tab BID PO Last administered on 11/14/20at 19:54; Start 11/10/20 at 21:00 Enoxaparin Sodium (Lovenox 40mg Syringe) 40 mg Q24H SQ Last administered on 11/14/20at 19:54; Start 11/10/20 at 21:00 Albuterol/ Ipratropium (Duoneb) 3 ml RTQID NEB ; Start 11/10/20 at 20:00; Stop 11/10/20 at 20:43; Status DC Budesonide (Pulmicort) 0.5 mg RTBID NEB ; Start 11/10/20 at 20:00; Stop 11/10/20 at 20:43; Status DC Fluticasone/ Vilanterol (Breo Ellipta 100-25 Mcg) 1 puff DAILY INH Last administered on 11/13/20at 09:46; Start 11/10/20 at 21:00 Furosemide (Lasix) 40 mg 1X ONCE IVP Last administered on 11/11/20at 17:20; Start 11/11/20 at 16:45; Stop 11/11/20 at 16:46; Status DC Furosemide (Lasix) 40 mg 1X ONCE IVP ; Start 11/12/20 at 16:15; Stop 11/12/20 at 16:19; Status DC Metoprolol Tartrate (Lopressor Vial) 5 mg 1X ONCE IVP Last administered on 11/13/20at 17:18; Start 11/13/20 at 15:45; Stop 11/13/20 at 15:46; Status DC Furosemide (Lasix) 40 mg 1X ONCE IVP Last administered on 11/13/20at 17:17; Start 11/13/20 at 15:45; Stop 11/13/20 at 15:46; Status DC Albuterol/ Ipratropium (Duoneb) 3 ml RTQID NEB Last administered on 11/15/20at 04:57; Start 11/14/20 at 12:00 Metoprolol Succinate (Toprol Xl) 100 mg DAILY PO ; Start 11/15/20 at 09:00 Metoprolol Succinate (Toprol Xl) 25 mg 1X ONCE PO ; Start 11/14/20 at 11:30; Stop 11/14/20 at 11:31; Status DC Digoxin (Lanoxin) 500 mcg 1X ONCE IV Last administered on 11/14/20at 15:10; Start 11/14/20 at 11:30; Stop 11/14/20 at 11:31; Status DC Furosemide (Lasix) 40 mg 1X ONCE IVP ; Start 11/14/20 at 14:30; Stop 11/14/20 at 14:48; Status DC Sodium Chloride 1,000 ml @ 75 mls/hr [id number] IV ; Start 11/14/20 at 14:45; Stop 11/14/20 at 15:05; Status DC Sodium Chloride 1,000 ml @ 250 mls/hr 1X ONCE IV Last administered on 11/14/20at 15:10; Start 11/14/20 at 15:00; Stop 11/14/20 at 16:22; Status DC Milrinone Lactate/ Dextrose 100 ml @ 0 mls/hr CONT PRN IV SEE I/O RECORD; Start 11/14/20 at 16:30 Sodium Bicarbonate (Sodium Bicarb Adult 8.4% Syr) 50 meq 1X ONCE IV Last administered on 11/14/20at 18:18; Start 11/14/20 at 18:00; Stop 11/14/20 at 1 8:01; Status DC Dextrose (Dextrose 50%-Water Syringe) 25 gm 1X ONCE IV Last administered on 11/14/20at 18:27; Start 11/14/20 at 18:00; Stop 11/14/20 at 18:01; Status DC Insulin Human Regular (HumuLIN R VIAL) 10 unit 1X ONCE IV ; Start 11/14/20 at 18:15; Stop 11/14/20 at 18:16; Status Cancel Insulin Human Regular 10 unit/ Sodium Chloride 2 ml @ 100 mls/hr 1X ONCE IV Last administered on 11/14/20at 18:27; Start 11/14/20 at 18:15; Stop 11/14/20 at 18:16; Status DC Active Scripts Active Ativan (Lorazepam) 0.5 Mg Tablet 0.5 Mg PO TID PRN 28 Days Amiodarone Hcl 200 Mg Tablet 200 Mg PO DAILY 30 Days Dicyclomine Hcl 10 Mg Capsule 10 Mg PO PRN QID PRN 14 Days Spiriva (Tiotropium [place]) 18 Mcg Cap.w.dev 1 Cap IH DAILY 30 Days Entresto 24 mg-26 mg Tablet (Sacubitril/Valsartan) 1 Each Tablet 1 Each PO BID 30 Days Advair 250-50 Diskus (Fluticasone/Salmeterol) 1 Each Disk.w.dev 1 Puff IH BID 30 Days Zoloft (Sertraline Hcl) 25 Mg Tablet 1 Tab PO DAILY 30 Days Protonix (Pantoprazole Sodium) 20 Mg Tablet.dr 2 Tab PO DAILY 30 Days Toprol XL (Metoprolol Succinate) 50 Mg Tab.er.24h 75 Mg PO DAILY 30 Days Furosemide 40 Mg Tablet 1 Tab PO DAILY 30 Days Reported Aspirin 81 Mg Tab.chew 1 Tab PO DAILY Vitals/I & O Vital Sign - Last 24 Hours 11/14/20 11/14/20 11/14/20 11/14/20 07:55 08:00 10:34 10:34 Temp 96.1 96.1 Pulse 110 110 110 Resp 19 B/P (MAP) 107/71 (83) 107/71 107/71 Pulse Ox 96 O2 Delivery Room Air Room Air 11/14/20 11/14/20 11/14/20 11/14/20 10:35 11:05 11:20 11:30 Temp 96.9 96.9 Pulse 107 110 Resp 18 18 18 B/P (MAP) 91/63 (72) 72/48 Pulse Ox 99 O2 Delivery Nasal Cannula Room Air Nasal Cannula O2 Flow Rate 2.0 11/14/20 11/14/20 11/14/20 11/14/20 12:20 14:27 15:10 16:12 Temp 97.3 97.3 Pulse 110 110 107 Resp 18 B/P (MAP) 72/48 (56) 72/48 119/67 (84) Pulse Ox 97 96 O2 Delivery Room Air Nasal Cannula O2 Flow Rate 2.0 11/14/20 11/14/20 11/14/20 11/14/20 16:47 19:00 19:55 20:00 Temp 97.5 97.5 Pulse 110 Resp 20 B/P (MAP) 119/75 (90) Pulse Ox 97 96 97 O2 Delivery Room Air Nasal Cannula Room Air Room Air O2 Flow Rate 2.0 11/14/20 11/14/20 11/14/20 11/15/20 20:25 21:14 23:00 03:00 Temp 97.5 97.8 97.5 97.8 Pulse 109 109 Resp 20 16 B/P (MAP) 119/82 (94) 111/75 (87) Pulse Ox 97 97 97 96 O2 Delivery Room Air Room Air Nasal Cannula Nasal Cannula O2 Flow Rate 2.0 2.0 11/15/20 04:57 Pulse Ox 93 O2 Delivery Room Air Intake and Output 11/14/20 11/14/20 11/15/20 15:00 23:00 07:00 Intake Total 110 ml 700 ml 200 ml Balance 110 ml 700 ml 200 ml Justicifation of Admission Dx: Justifications for Admission: Justification of Admission Dx: Yes MONTEZ GONZALES MD Nov 15, 2020 07:27
[2020-11-15] MEDS: ASPIRIN CHEWABLE 81 MG TABLET. PO SCH (08:55)
[2020-11-15] MEDS: PANTOPRAZOLE 40 MG TABLET.DR. PO SCH (08:58)
[2020-11-15] MEDS: SENNOSIDES/DOCUSATE 8.6/50MG TABLET. PO SCH ×2 (08:58→21:09)
[2020-11-15] MEDS: AMIODARONE HCL 200 MG TABLET. PO SCH (08:58)
[2020-11-15] MEDS: METOPROLOL SUCC 24HR ER 25 MG TAB.ER.24H. PO SCH (08:58)
[2020-11-15] MEDS: SERTRALINE 25 MG TABLET. PO SCH (08:59)
[2020-11-15] MEDS: FLUTICASONE/VILANTEROL 100/25 INHALER. INH SCH (09:03)
--- NOTE | 2020-11-15 09:49 | PDOC ---
Date of Service: DATE: 11/15/20 TIME: 09:44 Subjective: Subjective: Ate yesterday. Feeling a little better today. Says he can't eat this morning because he's having some tests but doesn't know what tests. Objective: Objective: D/w nursing - right heart cath today, vague/non-specific complaints. On amiodarone. Vital Signs: Vital Signs Date Time Temp Pulse Resp B/P (MAP) Pulse Ox O2 Delivery O2 Flow Rate FiO2 11/15/20 08:58 113 119/77 11/15/20 07:00 97.6 18 96 Room Air 97.6 11/15/20 03:00 2.0 Labs: Laboratory Tests Test 11/14/20 15:05 11/14/20 16:35 11/14/20 20:45 11/15/20 04:15 White Blood Count 8.9 x10^3/uL 10.4 x10^3/uL Red Blood Count 4.81 x10^6/uL 4.24 x10^6/uL Hemoglobin 15.5 g/dL 14.0 g/dL Hematocrit 47.1 % 40.8 % Mean Corpuscular Volume 98 fL 96 fL Mean Corpuscular Hemoglobin 32 pg 33 pg Mean Corpuscular Hemoglobin Concent 33 g/dL 34 g/dL Red Cell Distribution Width 13.5 % 13.1 % Platelet Count 375 x10^3/uL 291 x10^3/uL Sodium Level 136 mmol/L 132 mmol/L Potassium Level 6.0 mmol/L 3.8 mmol/L Chloride Level 96 mmol/L 93 mmol/L Carbon Dioxide Level 24 mmol/L 27 mmol/L Anion Gap 16 12 Blood Urea Nitrogen 36 mg/dL 31 mg/dL Creatinine 2.4 mg/dL 1.7 mg/dL Estimated GFR (Cockcroft-Gault) 28.4 42.2 Glucose Level 88 mg/dL 74 mg/dL Calcium Level 9.3 mg/dL 7.6 mg/dL Troponin I Quantitative 0.074 ng/mL 0.050 ng/mL Lactic Acid Level 6.3 mmol/L 5.7 mmol/L Neutrophils (%) (Auto) 64 % Lymphocytes (%) (Auto) 23 % Monocytes (%) (Auto) 11 % Eosinophils (%) (Auto) 1 % Basophils (%) (Auto) 1 % Neutrophils # (Auto) 6.6 x10^3/uL Lymphocytes # (Auto) 2.4 x10^3/uL Monocytes # (Auto) 1.2 x10^3/uL Eosinophils # (Auto) 0.1 x10^3/uL Basophils # (Auto) 0.1 x10^3/uL BUN/Creatinine Ratio 18 Total Bilirubin 0.9 mg/dL Aspartate Amino Transf (AST/SGOT) 3942 U/L Alanine Aminotransferase (ALT/SGPT) 2789 U/L Alkaline Phosphatase 70 U/L Total Protein 6.2 g/dL Albumin 2.9 g/dL Albumin/Globulin Ratio 0.9 Test 11/15/20 07:15 Lactic Acid Level 2.0 mmol/L PE: GEN: NAD - standing in room facing away from wv LUNGS: on room air HEART: tachycardic per monitor ABD: non-distended NEURO/PSYCH: A & O 3 A/P: CHF, A Fib, NICM Anxiety GERD - on PPI Elevated AST and ALT - thought possibly related to heart failure, worse/impressive today Alcohol history H/o non-compliance COVID negative -- Plans for heart cath. Check Hepatitis panel for completeness. Justicifation of Admission Dx: Justifications for Admission: Justification of Admission Dx: Yes GEOVANNI PASTOR Nov 15, 2020 09:49
[2020-11-15] MEDS ORDERED: fentaNYL PF VIAL 100 MCG/2 ML VIAL ONE (10:19)
[2020-11-15] MEDS ORDERED: MIDAZOLAM HCL/PF 2 MG/2 ML VIAL. ONE ×2 (10:19→11:05)
--- NOTE | 2020-11-15 10:21 | PDOC ---
MODERATE SEDATION ASSESSMENT RISKS/ALTERNATIVES Risks/Alternatives Risks and alternatives of this type of sedation and procedure discussed with: RISK/ALTERNATIVES: Patient H & P ON CHART H & P H & P on chart and reviewed for co-morbid conditions and appropriate labs. H&P ON CHART: Yes STATUS PREG STATUS ASSESSED: N/A MEDS/ALLERGIES REVIEWED Meds/Allergies Reviewed Medications and Allergies including time and route of recently administered narcotics and sedatives. MEDS/ALLERGIES REVIEWED: Yes ASA RATING ASA RATING: III AIRWAY ASSESSMENT Airway Assessment Airway patency, oral function limitations, presence of caps, crowns, dentures, partials, and ability to extend neck assessed. AIRWAY ASSESSMENT: Yes MALLAMPATI SCORE MALLAMPATI SCORE: II PRE-SEDATION ASSESSMENT PRE-SEDATION ASSESSMENT: Yes TIBURCIO WATT MD Nov 15, 2020 10:21
[2020-11-15] MEDS ORDERED: LIDOCAINE 1% Multi-Dose 20 ML VIAL. ONE (10:54)
--- NOTE | 2020-11-15 11:20 | NUR ---
SS following up with discharge planning. SS reviewed pt chart and discussed with pt RN. Pt is currently on room air. COVID19 negative. Cardiology following. Pt having right heart cath today. Discharge plan is currently to home when medically ready for discharge. SS will continue to follow for discharge planning.
[2020-11-15] MEDS ORDERED: fentaNYL PF VIAL 100 MCG/2 ML VIAL IV ONE (11:30)
[2020-11-15] MEDS ORDERED: MIDAZOLAM HCL/PF 2 MG/2 ML VIAL. IV ONE (11:30)
[2020-11-15] MEDS ORDERED: LIDOCAINE 1% Multi-Dose 20 ML VIAL. INJ ONE (11:30)
[2020-11-15] MEDS ORDERED: FUROSEMIDE 40 MG/4 ML VIAL. IVP ONE (11:45)
--- NOTE | 2020-11-15 12:04 | CARD ---
MR#: [id number] Date of Study: 11/15/2020 Ordering Physician: TIBURCIO MARIEE, Referring Physician: TIBURCIO MARIEE, Tech: RT Liz(R)() APPROVED REPORT Technologist: RT Liz(R)() Nurse: Lizbet Ldeezma RN Procedure(s) performed: RIGHT HEART CATHETERIZATION MODERATE SEDATION TIME: 38 MINUTS FLUORO TIME: 2.7 MIN DOSE: [id number] INDICATION The indication(s) include : Acute on chronic systolic heart failure. CASE TECHNIQUE IV conscious sedation was used throughout procedure with appropriate monitoring and was performed in the presence of a registered nurse who was an independent trained observer other than the physician p erforming the procedure. Specimen(s) Removed: No Estimated Blood loss: 20 cc's. PROCEDURE NARRATIVE After explaining the risk, benefits and alternative options, informed consent was obtained for patien t. Patient was brought to the cardiac Scale Agent and his right groin was prepped and draped in the usu al fashion. 20 cc of 2% lidocaine was infiltrated into the skin and subcutaneous tissues for local a nesthesia. Venous access was obtained in the left common femoral vein and 8 [place] sheath was insert ed. A 7.5 [place] Cromona-Rinku catheter was then advanced under fluoroscopy guidance and intracardiac pr essures, oxygen saturations and cardiac output by Amadeo method measured. Patient tolerated the proced ure well. Hemostasis was achieved using manual compression. There were no immediate complications. FINDINGS 1. Intracardiac pressures: Mean right atrial pressure 19 mmHg, right ventricular pressure 51/11 mmHg , pulmonary capillary wedge pressure 26 mmHg, pulmonary artery pressure 57/32 mmHg with a mean PA pre ssure of 41 mmHg. This is consistent with elevated right and left-sided filling pressures and mild t o moderate pulmonary hypertension probably from fluid overload. 2. Oxygen saturations: Right atrium 48%, pulmonary artery 53%. No evidence of intracardiac shunt. 3. Cardiac output by Amadeo method 2.9 L/min. Conclusion 1. Elevated right and left-sided filling pressures 2. No evidence of intracardiac shunt Recommendations Aggressive diuresis with inotropic support Signed by : Tiburcio Mariee, Electronically Approved : 11/15/2020 12:04:28
[2020-11-15] MEDS: MILRINONE 20MG/100ML PREMIX 100 ML IV PRN (12:29)
--- NOTE | 2020-11-15 17:00 | NUR ---
Around 1500, this RN went to check R groin site & found patient bleeding. Patient was asleep & did not realize he was bleeding. Bed sheets under patient saturated. This RN held manual pressure for about 5 min. Bleeding stopped immediately. Pulses normal, VSS. No complaints of groin pain. Some bruising/small hematoma noted. Vpad & opsite placed over site. Dr. Calle notified this evening while on the floor. Will continue to monitor.
[2020-11-15] MEDS: oxyCODONE/APAP 5/325 1 TAB TABLET PO PRN (19:26)
[2020-11-15] MEDS: ENOXAPARIN 40 MG/0.4 ML SYRINGE. SQ SCH (21:11)
[2020-11-15] MEDS: oxyCODONE IR 5 MG TABLET PO PRN (22:47)
[2020-11-16] VITALS (12 sets, daily range): BP systolic 99–110; BP diastolic 54–76
[2020-11-16] MEDS: IPRATRPIUM/ALBUTEROL 0.5/2.5MG 3 ML NEBU. NEB SCH ×4 (07:24→19:57)
[2020-11-16] MEDS: SERTRALINE 25 MG TABLET. PO SCH (08:44)
[2020-11-16] MEDS: ACETAMINOPHEN 325 MG TABLET. PO PRN (08:44)
[2020-11-16] MEDS: ASPIRIN CHEWABLE 81 MG TABLET. PO SCH (08:44)
[2020-11-16] MEDS: PANTOPRAZOLE 40 MG TABLET.DR. PO SCH (08:44)
[2020-11-16] MEDS: METOPROLOL SUCC 24HR ER 25 MG TAB.ER.24H. PO SCH (08:45)
[2020-11-16] MEDS: FUROSEMIDE 40 MG/4 ML VIAL. IVP SCH (08:46)
[2020-11-16] MEDS: SENNOSIDES/DOCUSATE 8.6/50MG TABLET. PO SCH ×2 (08:46→21:37)
[2020-11-16] MEDS: FLUTICASONE/VILANTEROL 100/25 INHALER. INH SCH (09:00)
--- NOTE | 2020-11-16 10:29 | PDOC ---
PROGRESS NOTES Date of Service: DATE: 11/16/20 TIME: 10:28 Chief Complaint Chief Complaint impression A. 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 Device check / normal function. Discharged however was unable to chart picker most of his medications; symptoms have only worsened since that discharge she says fluid overloaded on presentation shortness of breath on presentation check Covid resume home medications as they were prescribed at recent discharge. Consult cardiology Cardiac diet Smoking cessation encouraged / provided DVT prophylaxis new onset nausea, abd discomfort 11-12 Has not been on his PPI which contributes to his issues History of Present Illness History of Present Illness Chief Complaint: Problems: (1) Chest pain (2) Hypoxia (3) Shortness of breath Chief Complain: Chest pain, shortness of breath History of Present Illness: HPI: Patient is a 55-year-old male presenting today due to worsening shortness of breath and chest pain. Patient was recently admitted after he thought his ICD fired. He was here for several days and was found to be atrial fibrillation with RVR. After he discharged he was unable to chart picker some of his medications, including his amiodarone, due to cost. He was able to get his Lopressor and Lasix. History notable for CAD, CHF ejection fraction 25%. Patient says his chest pain has persisted since last admission. He says it did get worse after discharge since he was unable to chart picker any of his medications. Denies any sort of productive cough or fevers. Patient presented the emergency room found to be relatively fluid overloaded, patient also had a 2 L oxygen requirement after he was found to be saturating mid 80s on room air. Patient was denying any sort of headache, vision changes, abdominal pain, joint pain, dysuria. Past Medical/Surgical History: PMH/PSH: A. fib, CAD, CHF 25% ejection fraction Allergies: Allergies: Coded Allergies: No Known Drug Allergies (Unverified , 10/31/20) Family History: Family History: CAD, hypertension Social History: Social History: Smoker, frequent alcohol use, denies drug use Current Medications: Current Medications Current Medications Ondansetron HCl (Zofran) 4 mg 1X ONCE IVP Last administered on 11/10/20at 16:20; Start 11/10/20 at 14:15; Stop 11/10/20 at 14:16; Status DC Amiodarone HCl (Cordarone) 200 mg DAILY PO ; Start 11/11/20 at 09:00 Aspirin (Aspirin Chewable) 81 mg DAILY PO ; Start 11/11/20 at 09:00 Furosemide (Lasix) 40 mg DAILY PO ; Start 11/11/20 at 09:00 Lorazepam (Ativan) 0.5 mg PRN TID PRN PO ANXIETY / AGITATION; Start 11/10/20 at 16:15 Metoprolol Succinate (Toprol Xl) 75 mg DAILY PO ; Start 11/11/20 at 09:00 Sacubitril/ Valsartan (Entresto 24 Mg-26 Mg) 1 tab BID PO ; Start 11/10/20 at 21:00 Sertraline HCl (Zoloft) 25 mg DAILY PO ; Start 11/11/20 at 09:00 Non-Formulary Medication (Fluticasone/ Salmeterol (Advair 250-50 Diskus)) 1 puff BID IH ; Start 11/10/20 at 21:00; Status UNV Pantoprazole Sodium (Protonix) 40 mg DAILYAC PO ; Start 11/11/20 at 07:30 Non-Formulary Medication (Tiotropium [place] (Spiriva)) 1 cap DAILY IH ; Start 11/11/20 at 09:00; Status UNV Ondansetron HCl (Zofran) 4 mg PRN Q6HRS PRN IVP NAUSEA/VOMITING; Start 11/10/20 at 16:15 Calcium Carbonate/ Glycine (Tums) 500 mg PRN Q3HRS PRN PO UPSET STOMACH; Start 11/10/20 at 16:15 Zolpidem Tartrate (Ambien) 5 mg PRN QHS PRN PO INSOMNIA, MAY REPEAT IN 1HR; Start 11/10/20 at 16:15 Info (Non-Icu Electrolyte Protocol) 1 ea PRN DAILY PRN MC SEE COMMENTS; Start 11/10/20 at 16:15 Oxycodone HCl (Roxicodone) 5 mg PRN Q3HRS PRN PO BREAKTHROUGH PAIN; Start 11/10/20 at 16:15 Oxycodone/ Acetaminophen (Percocet 5/325) 1 tab PRN Q4HRS PRN PO MILD PAIN, 1ST CHOICE; Start 11/10/20 at 16:15 Oxycodone/ Acetaminophen (Percocet 5/325) 2 tab PRN Q4HRS PRN PO MODERATE PAIN, SEVERE PAIN; Start 11/10/20 at 16:15 Acetaminophen (Tylenol) 650 mg PRN Q6HRS PRN PO Headaches, Temp > 101.5F; Start 11/10/20 at 16:15 Senna/Docusate Sodium (Senna Plus) 1 tab BID PO ; Start 11/10/20 at 21:00 Enoxaparin Sodium (Lovenox 40mg Syringe) 40 mg Q24H SQ ; Start 11/10/20 at 21:00 Albuterol/ Ipratropium (Duoneb) 3 ml RTQID NEB ; Start 11/10/20 at 20:00 Budesonide (Pulmicort) 0.5 mg RTBID NEB ; Start 11/10/20 at 20:00 Active Scripts Active Ativan (Lorazepam) 0.5 Mg Tablet 0.5 Mg PO TID PRN 28 Days Amiodarone Hcl 200 Mg Tablet 200 Mg PO DAILY 30 Days Dicyclomine Hcl 10 Mg Capsule 10 Mg PO PRN QID PRN 14 Days Spiriva (Tiotropium [place]) 18 Mcg Cap.w.dev 1 Cap IH DAILY 30 Days Entresto 24 mg-26 mg Tablet (Sacubitril/Valsartan) 1 Each Tablet 1 Each PO BID 30 Days Advair 250-50 Diskus (Fluticasone/Salmeterol) 1 Each Disk.w.dev 1 Puff IH BID 30 Days Zoloft (Sertraline Hcl) 25 Mg Tablet 1 Tab PO DAILY 30 Days Protonix (Pantoprazole Sodium) 20 Mg Tablet.dr 2 Tab PO DAILY 30 Days Toprol XL (Metoprolol Succinate) 50 Mg Tab.er.24h 75 Mg PO DAILY 30 Days Furosemide 40 Mg Tablet 1 Tab PO DAILY 30 Days Reported Aspirin 81 Mg Tab.chew 1 Tab PO DAILY ROS: Review of Systems Review of System Negative unless noted in HPI - covid neg abdominal discomfort, nausea new 11-03 ct Gallbladder wall thickening and pericholecystic fluid, which could represent acute cholecystitis. No radiopaque stones are seen by CT. Correlate with laboratory values. If there is persistent concern for choledocholithiasis, MRI could be obtained. GI CONSULTED SONO ORDERED, NPO The common duct is mildly dilated and contains some echogenic material. This may reflect artifact or choledocholithiasis. ON ultrasound /MRCP could further evaluate if the diagnosis is unclear. A. fib, CAD, CHF 25% ejection fraction Patient recently admitted for A. 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 Device check / normal function. Discharged however was unable to chart picker most of his medications; symptoms have only worsened since that discharge she says fluid overloaded on presentation shortness of breath on presentation check Covid resume home medications as they were prescribed at recent discharge. Consult cardiology Cardiac diet Smoking cessation encouraged / provided Has not been on his PPI / contributes to his PAIN surgery consult 914 labs pending covid neg abdominal discomfort, nausea new 11-03 ct Gallbladder wall thickening and pericholecystic fluid, which could represent acute cholecystitis. No radiopaque stones are seen by CT. Correlate with laboratory values. If there is persistent concern for choledocholithiasis, MRI could be obtained. GI CONSULTED SONO ORDERED, NPO A. fib, CAD, CHF 25% ejection fraction Patient recently admitted for A. 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 Device check / normal function. Discharged however was unable to chart picker most of his medications; symptoms have only worsened since that discharge she says fluid overloaded on presentation shortness of breath on presentation check Covid resume home medications as they were prescribed at recent discharge. Consult cardiology Cardiac diet Smoking cessation encouraged / provided Has not been on his PPI / contributes to his PAIN 9-13 labs pending covid neg A. fib, CAD, CHF 25% ejection fraction Patient recently admitted for A. 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 Device check / normal function. Discharged however was unable to chart picker most of his medications; symptoms have only worsened since that discharge she says fluid overloaded on presentation shortness of breath on presentation check Covid resume home medications as they were prescribed at recent discharge. Consult cardiology Cardiac diet Smoking cessation encouraged / provided 9-16 covid neg abdominal discomfort, nausea new - ct Gallbladder wall thickening and pericholecystic fluid, which could represent acute cholecystitis. No radiopaque stones are seen by CT. Correlate with laboratory values. If there is persistent concern for choledocholithiasis, MRI could be obtained. GI CONSULTED SONO ORDERED,try clears The common duct is mildly dilated and contains some echogenic material. This may reflect artifact or choledocholithiasis. ON ultrasound /MRCP could further evaluate if the diagnosis is unclear. A. fib, CAD, CHF 25% ejection fraction Patient recently admitted for A. 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 Device check / normal function. Discharged however was unable to chart picker most of his medications; symptoms have only worsened since that discharge she says fluid overloaded on presentation shortness of breath on presentation check Covid resume home medications as they were prescribed at recent discharge. 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 Right heart cath noted. Continue diuresis Elevated right and left-sided filling pressures RIGHT HEART CATH 11-15 No evidence of intracardiac shunt Aggressive diuresis with inotropic support covid neg abdominal discomfort, nausea new 11-03 ct Gallbladder wall thickening and pericholecystic fluid, which could represent acute cholecystitis. No radiopaque stones are seen by CT. Correlate with laboratory values. If there is persistent concern for choledocholithiasis, MRI could be obtained. GI CONSULTED SONO ORDERED,try reg diet The common duct is mildly dilated and contains some echogenic material. This may reflect artifact or choledocholithiasis. ON ultrasound /MRCP could further evaluate if the diagnosis is unclear. A. fib, CAD, CHF 25% ejection fraction Patient recently admitted for A. fib, ejection fraction around 25% / biventricul ar ICD/BARREL ROLLER OPERATOR-D implantation. Device check / normal function. Discharged however was unable to chart picker most of his medications; symptoms have only worsened since that discharge she says fluid overloaded on presentation shortness of breath on presentation check Covid resume home medications as they were prescribed at recent discharge. Consult cardiology Cardiac diet Smoking cessation encouraged / provided Has not been on his PPI / contributes to his PAIN surgery consult nonsurgical abdomen D/W RN 11-15 Elevated right and left-sided filling pressures RIGHT HEART CATH 11-15 No evidence of intracardiac shunt Aggressive diuresis with inotropic support covid neg abdominal discomfort, nausea new 11-03 ct Gallbladder wall thickening and pericholecystic fluid, which could represent acute cholecystitis. No radiopaque stones are seen by CT. Correlate with laboratory values. If there is persistent concern for choledocholithiasis, MRI could be obtained. GI CONSULTED SONO ORDERED,try clears The common duct is mildly dilated and contains some echogenic material. This may reflect artifact or choledocholithiasis. ON ultrasound /MRCP could further evaluate if the diagnosis is unclear. A. fib, CAD, CHF 25% ejection fraction Patient recently admitted for A. 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 Device check / normal function. Discharged however was unable to chart picker most of his medications; symptoms have only worsened since that discharge she says fluid overloaded on presentation shortness of breath on presentation check Covid resume home medications as they were prescribed at recent discharge. Consult cardiology Cardiac diet Smoking cessation encouraged / provided Has not been on his PPI / contributes to his PAIN surgery consult nonsurgical abdomen D/W DR GARCIA IN [place] 11-12 labs pending covid neg abdominal discomfort, nausea new 11-03 ct Gallbladder wall thickening and pericholecystic fluid, which could represent acute cholecystitis. No radiopaque stones are seen by CT. Correlate with laboratory values. If there is persistent concern for choledocholithiasis, MRI could be obtained. GI CONSULTED SONO ORDERED, NPO A. fib, CAD, CHF 25% ejection fraction Patient recently admitted for A. fib, ejection fraction around 25% / b iventricular ICD/BARREL ROLLER OPERATOR-D implantation. Device check / normal function. Discharged however was unable to chart picker most of his medications; symptoms have only worsened since that discharge she says fluid overloaded on presentation shortness of breath on presentation check Covid resume home medications as they were prescribed at recent discharge. Consult cardiology Cardiac diet Smoking cessation encouraged / provided Has not been on his PPI / contributes to his PAIN Vitals Vitals Vital Signs Date Time Temp Pulse Resp B/P (MAP) Pulse Ox O2 Delivery O2 Flow Rate FiO2 11/16/20 08:45 87 107/72 11/16/20 07:25 96 Room Air 11/16/20 07:00 97.4 16 97.4 11/15/20 14:29 2.0 Physical Exam Physical Exam GEN: Mild distress HEENT: Normal cephalic, atraumatic, external auditory canals are patent EYES: Extraocular muscles are intact, pupil are equally round and reactive to light and accommodation MUSCULOSKELETAL: Well developed , well nourished, good range of motion ENDOCRINE: No thyromegaly was palpated LYMPHATICS: No cervical chain or axillary nodes were noted HEMATOPOIETIC: No bruising NECK: Supple, no JVD, no thyromegaly was noted LUNGS: Bibasilar crackles HEART: Irregularly irregular, peripheral pulses intact ABDOMEN: MILDLY tender. Positive bowel sounds, no organomegaly, normal bowel sounds EXTREMITIES: Bilateral lower extremity pitting edema NEUROLOGIC: Normal speech and tone. A&O x 3, moves all extremities, no obvious focal deficits PSYCHIATRIC: Normal affect, normal mood. Stable SKIN: No ulcerations or rashes, good skin turgor, no jaundice VASCULAR: Good capillary refill, neurovascular bundle appears to be intact General: Alert, Oriented X3, Cooperative, No acute distress Heart: Regular rate, Normal S1, Normal S2, No murmurs Lungs: Clear Abdomen: Normal bowel sounds, Soft, No tenderness, No hepatosplenomegaly, No masses Extremities: No cyanosis, No edema Skin: No significant lesion Assessment and Plan Assessmemt and Plan Problems Medical Problems: (1) Chest pain Status: Acute (2) Hypoxia Status: Acute Comment Review of Relevant I have reviewed the following items rommel (where applicable) has been applied. Labs Laboratory Tests Test 11/14/20 15:05 11/14/20 16:35 11/14/20 20:45 11/15/20 04:15 White Blood Count 8.9 x10^3/uL (4.0-11.0) 10.4 x10^3/uL (4.0-11.0) Red Blood Count 4.81 x10^6/uL (4.30-5.70) 4.24 x10^6/uL (4.30-5.70) Hemoglobin 15.5 g/dL (13.0-17.5) 14.0 g/dL (13.0-17.5) Hematocrit 47.1 % (39.0-53.0) 40.8 % (39.0-53.0) Mean Corpuscular Volume 98 fL (79-100) 96 fL (79-100) Mean Corpuscular Hemoglobin 32 pg (25-35) 33 pg (25-35) Mean Corpuscular Hemoglobin Concent 33 g/dL (31-37) 34 g/dL (31-37) Red Cell Distribution Width 13.5 % (11.5-14.5) 13.1 % (11.5-14.5) Platelet Count 375 x10^3/uL (140-400) 291 x10^3/uL (140-400) Sodium Level 136 mmol/L (136-145) 132 mmol/L (136-145) Potassium Level 6.0 mmol/L (3.5-5.1) 3.8 mmol/L (3.5-5.1) Chloride Level 96 mmol/L (98-107) 93 mmol/L (98-107) Carbon Dioxide Level 24 mmol/L (21-32) 27 mmol/L (21-32) Anion Gap 16 (6-14) 12 (6-14) Blood Urea Nitrogen 36 mg/dL (8-26) 31 mg/dL (8-26) Creatinine 2.4 mg/dL (0.7-1.3) 1.7 mg/dL (0.7-1.3) Estimated GFR (Cockcroft-Gault) 28.4 42.2 Glucose Level 88 mg/dL (70-99) 74 mg/dL (70-99) Calcium Level 9.3 mg/dL (8.5-10.1) 7.6 mg/dL (8.5-10.1) Troponin I Quantitative 0.074 ng/mL (0.000-0.055) 0.050 ng/mL (0.000-0.055) Lactic Acid Level 6.3 mmol/L (0.4-2.0) 5.7 mmol/L (0.4-2.0) Neutrophils (%) (Auto) 64 % (31-73) Lymphocytes (%) (Auto) 23 % (24-48) Monocytes (%) (Auto) 11 % (0-9) Eosinophils (%) (Auto) 1 % (0-3) Basophils (%) (Auto) 1 % (0-3) Neutrophils # (Auto) 6.6 x10^3/uL (1.8-7.7) Lymphocytes # (Auto) 2.4 x10^3/uL (1.0-4.8) Monocytes # (Auto) 1.2 x10^3/uL (0.0-1.1) Eosinophils # (Auto) 0.1 x10^3/uL (0.0-0.7) Basophils # (Auto) 0.1 x10^3/uL (0.0-0.2) BUN/Creatinine Ratio 18 (6-20) Total Bilirubin 0.9 mg/dL (0.2-1.0) Aspartate Amino Transf (AST/SGOT) 3942 U/L (15-37) Alanine Aminotransferase (ALT/SGPT) 2789 U/L (16-63) Alkaline Phosphatase 70 U/L (46-116) Total Protein 6.2 g/dL (6.4-8.2) Albumin 2.9 g/dL (3.4-5.0) Albumin/Globulin Ratio 0.9 (1.0-1.7) Test 11/15/20 07:15 Lactic Acid Level 2.0 mmol/L (0.4-2.0) Hepatitis A IgM Antibody Nonreactive (Nonreactive) Hepatitis B Surface Antigen Nonreactive (Nonreactive) Hepatitis B Core IgM Antibody Nonreactive (Nonreactive) Hepatitis C IgG Antibody Reactive (Nonreactive) Medications Current Medications Ondansetron HCl (Zofran) 4 mg 1X ONCE IVP Last administered on 11/10/20at 16:20; Start 11/10/20 at 14:15; Stop 11/10/20 at 14:16; Status DC Amiodarone HCl (Cordarone) 200 mg DAILY PO Last administered on 11/15/20at 08:58; Start 11/11/20 at 09:00; Stop 11/15/20 at 11:41; Status DC Aspirin (Aspirin Chewable) 81 mg DAILY PO Last administered on 11/16/20at 08:44; Start 11/11/20 at 09:00 Furosemide (Lasix) 40 mg DAILY PO Last administered on 11/14/20at 10:34; Start 11/11/20 at 09:00; Stop 11/14/20 at 15:28; Status DC Lorazepam (Ativan) 0.5 mg PRN TID PRN PO ANXIETY / AGITATION Last administered on 11/14/20at 10:35; Start 11/10/20 at 16:15 Metoprolol Succinate (Toprol Xl) 75 mg DAILY PO Last administered on 11/14/20at 10:34; Start 11/11/20 at 09:00; Stop 11/14/20 at 11:27; Status DC Sacubitril/ Valsartan (Entresto 24 Mg-26 Mg) 1 tab BID PO Last administered on 11/11/20at 09:25; Start 11/10/20 at 21:00; Stop 11/11/20 at 16:33; Status DC Sertraline HCl (Zoloft) 25 mg DAILY PO Last administered on 11/16/20at 08:44; Start 11/11/20 at 09:00 Non-Formulary Medication (Fluticasone/ Salmeterol (Advair 250-50 Diskus)) 1 puff BID IH ; Start 11/10/20 at 21:00; Status UNV Pantoprazole Sodium (Protonix) 40 mg DAILYAC PO Last administered on 11/16/20at 08:44; Start 11/11/20 at 07:30 Non-Formulary Medication (Tiotropium [place] (Spiriva)) 1 cap DAILY IH ; Start 11/11/20 at 09:00; Status UNV Ondansetron HCl (Zofran) 4 mg PRN Q6HRS PRN IVP NAUSEA/VOMITING Last administered on 11/14/20at 08:59; Start 11/10/20 at 16:15 Calcium Carbonate/ Glycine (Tums) 500 mg PRN Q3HRS PRN PO UPSET STOMACH; Start 11/10/20 at 16:15 Zolpidem Tartrate (Ambien) 5 mg PRN QHS PRN PO INSOMNIA, MAY REPEAT IN 1HR Last administered on 11/11/20at 22:29; Start 11/10/20 at 16:15 Info (Non-Icu Electrolyte Protocol) 1 ea PRN DAILY PRN MC SEE COMMENTS; Start 11/10/20 at 16:15 Oxycodone HCl (Roxicodone) 5 mg PRN Q3HRS PRN PO BREAKTHROUGH PAIN Last administered on 11/15/20at 22:47; Start 11/10/20 at 16:15 Oxycodone/ Acetaminophen (Percocet 5/325) 1 tab PRN Q4HRS PRN PO MILD PAIN, 1ST CHOICE Last administered on 11/14/20at 10:35; Start 11/10/20 at 16:15 Oxycodone/ Acetaminophen (Percocet 5/325) 2 tab PRN Q4HRS PRN PO MODERATE PAIN, SEVERE PAIN Last administered on 11/15/20at 19:26; Start 11/10/20 at 16:15 Acetaminophen (Tylenol) 650 mg PRN Q6HRS PRN PO Headaches, Temp > 101.5F Last administered on 11/16/20at 08:44; Start 11/10/20 at 16:15 Senna/Docusate Sodium (Senna Plus) 1 tab BID PO Last administered on 11/16/20at 08:46; Start 11/10/20 at 21:00 Enoxaparin Sodium (Lovenox 40mg Syringe) 40 mg Q24H SQ Last administered on 11/15/20at 21:11; Start 11/10/20 at 21:00 Albuterol/ Ipratropium (Duoneb) 3 ml RTQID NEB ; Start 11/10/20 at 20:00; Stop 11/10/20 at 20:43; Status DC Budesonide (Pulmicort) 0.5 mg RTBID NEB ; Start 11/10/20 at 20:00; Stop 11/10/20 at 20:43; Status DC Fluticasone/ Vilanterol (Breo Ellipta 100-25 Mcg) 1 puff DAILY INH Last admin istered on 11/15/20at 09:03; Start 11/10/20 at 21:00 Furosemide (Lasix) 40 mg 1X ONCE IVP Last administered on 11/11/20at 17:20; Start 11/11/20 at 16:45; Stop 11/11/20 at 16:46; Status DC Furosemide (Lasix) 40 mg 1X ONCE IVP ; Start 11/12/20 at 16:15; Stop 11/12/20 at 16:19; Status DC Metoprolol Tartrate (Lopressor Vial) 5 mg 1X ONCE IVP Last administered on 11/13/20at 17:18; Start 11/13/20 at 15:45; Stop 11/13/20 at 15:46; Status DC Furosemide (Lasix) 40 mg 1X ONCE IVP Last administered on 11/13/20at 17:17; Start 11/13/20 at 15:45; Stop 11/13/20 at 15:46; Status DC Albuterol/ Ipratropium (Duoneb) 3 ml RTQID NEB Last administered on 11/16/20at 07:24; Start 11/14/20 at 12:00 Metoprolol Succinate (Toprol Xl) 100 mg DAILY PO Last administered on 11/16/20at 08:45; Start 11/15/20 at 09:00 Metoprolol Succinate (Toprol Xl) 25 mg 1X ONCE PO ; Start 11/14/20 at 11:30; Stop 11/14/20 at 11:31; Status DC Digoxin (Lanoxin) 500 mcg 1X ONCE IV Last administered on 11/14/20at 15:10; Start 11/14/20 at 11:30; Stop 11/14/20 at 11:31; Status DC Furosemide (Lasix) 40 mg 1X ONCE IVP ; Start 11/14/20 at 14:30; Stop 11/14/20 at 14:48; Status DC Sodium Chloride 1,000 ml @ 75 mls/hr [id number] IV ; Start 11/14/20 at 14:45; Stop 11/14/20 at 15:05; Status DC Sodium Chloride 1,000 ml @ 250 mls/hr 1X ONCE IV Last administered on 11/14/20at 15:10; Start 11/14/20 at 15:00; Stop 11/14/20 at 16:22; Status DC Milrinone Lactate/ Dextrose 100 ml @ 0 mls/hr CONT PRN IV SEE I/O RECORD Last administered on 11/15/20at 12:29; Start 11/14/20 at 16:30 Sodium Bicarbonate (Sodium Bicarb Adult 8.4% Syr) 50 meq 1X ONCE IV Last administered on 11/14/20at 18:18; Start 11/14/20 at 18:00; Stop 11/14/20 at 18:01; Status DC Dextrose (Dextrose 50%-Water Syringe) 25 gm 1X ONCE IV Last administered on 11/14/20at 18:27; Start 11/14/20 at 18:00; Stop 11/14/20 at 18:01; Status DC Insulin Human Regular (HumuLIN R VIAL) 10 unit 1X ONCE IV ; Start 11/14/20 at 18:15; Stop 11/14/20 at 18:16; Status Cancel Insulin Human Regular 10 unit/ Sodium Chloride 2 ml @ 100 mls/hr 1X ONCE IV Last administered on 11/14/20at 18:27; Start 11/14/20 at 18:15; Stop 11/14/20 at 18:16; Status DC Fentanyl Citrate (Fentanyl 2ml Vial) 100 mcg STK-MED ONCE .ROUTE ; Start 11/15/20 at 10:19; Stop 11/15/20 at 10:19; Status DC Midazolam HCl (Versed) 2 mg STK-MED ONCE .ROUTE ; Start 11/15/20 at 10:19; Stop 11/15/20 at 10:19; Status DC Lidocaine HCl (Lidocaine 1% 20ml Vial) 20 ml STK-MED ONCE .ROUTE ; Start 11/15/20 at 10:54; Stop 11/15/20 at 10:54; Status DC Heparin Sodium/ Sodium Chloride 500 ml @ As Directed STK-MED ONCE .ROUTE ; Start 11/15/20 at 10:54; Stop 11/15/20 at 10:54; Status DC Midazolam HCl (Versed) 2 mg STK-MED ONCE .ROUTE ; Start 11/15/20 at 11:05; Stop 11/15/20 at 11:05; Status DC Heparin Sodium/ Sodium Chloride (HEPARIN for ARTERIAL LINE FLUSH) 1,000 unit 1X ONCE IART Last administered on 11/15/20at 11:24; Start 11/15/20 at 11:30; Stop 11/15/20 at 11:31; Status DC Midazolam HCl (Versed) 3 mg 1X ONCE IV Last administered on 11/15/20at 11:25; Start 11/15/20 at 11:30; Stop 11/15/20 at 11:31; Status DC Fentanyl Citrate (Fentanyl 2ml Vial) 100 mcg 1X ONCE IV Last administered on 11/15/20at 11:26; Start 11/15/20 at 11:30; Stop 11/15/20 at 11:31; Status DC Lidocaine HCl (Lidocaine 1% 20ml Vial) 20 ml 1X ONCE INJ Last administered on 11/15/20at 11:24; Start 11/15/20 at 11:30; Stop 11/15/20 at 11:31; Status DC Furosemide (Lasix) 40 mg DAILY IVP Last administered on 11/16/20at 08:46; Start 11/16/20 at 09:00 Furosemide (Lasix) 40 mg 1X ONCE IVP Last administered on 11/15/20at 14:09; Start 11/15/20 at 11:45; Stop 11/15/20 at 11:46; Status DC Active Scripts Active Ativan (Lorazepam) 0.5 Mg Tablet 0.5 Mg PO TID PRN 28 Days Amiodarone Hcl 200 Mg Tablet 200 Mg PO DAILY 30 Days Dicyclomine Hcl 10 Mg Capsule 10 Mg PO PRN QID PRN 14 Days Spiriva (Tiotropium [place]) 18 Mcg Cap.w.dev 1 Cap IH DAILY 30 Days Entresto 24 mg-26 mg Tablet (Sacubitril/Valsartan) 1 Each Tablet 1 Each PO BID 30 Days Advair 250-50 Diskus (Fluticasone/Salmeterol) 1 Each Disk.w.dev 1 Puff IH BID 30 Days Zoloft (Sertraline Hcl) 25 Mg Tablet 1 Tab PO DAILY 30 Days Protonix (Pantoprazole Sodium) 20 Mg Tablet.dr 2 Tab PO DAILY 30 Days Toprol XL (Metoprolol Succinate) 50 Mg Tab.er.24h 75 Mg PO DAILY 30 Days Furosemide 40 Mg Tablet 1 Tab PO DAILY 30 Days Reported Aspirin 81 Mg Tab.chew 1 Tab PO DAILY Vitals/I & O Vital Sign - Last 24 Hours 11/15/20 11/15/20 11/15/20 11/15/20 11:26 11:32 11:45 12:02 Temp 96.1 96.1 Pulse 85 87 88 Resp 16 16 18 B/P (MAP) 107/74 (85) 99/73 (82) Pulse Ox 93 97 93 98 O2 Delivery Nasal Cannula Nasal Cannula Room Air Nasal Cannula O2 Flow Rate 2.0 2.0 2.0 11/15/20 11/15/20 11/15/20 11/15/20 12:17 12:32 12:47 12:49 Pulse 86 84 86 B/P (MAP) 105/80 (88) 112/78 (89) 113/88 (96) Pulse Ox 92 95 83 95 O2 Delivery Nasal Cannula Nasal Cannula Nasal Cannula Nasal Cannula O2 Flow Rate 2.0 2.0 2.0 2.0 11/15/20 11/15/20 11/15/20 11/15/20 13:17 13:47 14:29 14:59 Pulse 90 92 92 88 B/P (MAP) 123/74 (90) 125/87 (100) 99/59 (72) 113/78 (90) Pulse Ox 98 99 99 O2 Delivery Nasal Cannula Nasal Cannula Nasal Cannula O2 Flow Rate 2.0 2.0 2.0 11/15/20 11/15/20 11/15/20 11/15/20 15:00 15:29 15:59 16:29 Temp 97.6 97.6 Pulse 87 82 80 80 Resp 18 B/P (MAP) 117/81 (93) 111/74 (86) 106/68 (81) 106/67 (80) Pulse Ox 96 O2 Delivery Room Air 11/15/20 11/15/20 11/15/20 11/15/20 17:29 18:29 19:00 19:26 Temp 97.6 97.6 Pulse 80 80 81 Resp 16 B/P (MAP) 108/58 (75) 109/62 (78) 112/78 (89) Pulse Ox 95 O2 Delivery Room Air Room Air 11/15/20 11/15/20 11/15/20 11/15/20 19:56 20:00 21:40 22:47 Pulse Ox 96 O2 Delivery Room Air Room Air Room Air Room Air 11/15/20 11/16/20 11/16/20 11/16/20 22:59 02:53 07:00 07:25 Temp 97.5 98.1 97.4 97.5 98.1 97.4 Pulse 82 75 87 Resp 16 16 16 B/P (MAP) 112/73 (86) 103/72 (82) 107/72 (84) Pulse Ox 97 97 97 96 O2 Delivery Room Air Room Air Room Air Room Air 11/16/20 08:45 Pulse 87 B/P (MAP) 107/72 Intake and Output 11/15/20 11/15/20 11/16/20 15:00 23:00 07:00 Intake Total 0 ml 300 ml 200 ml Output Total 1400 ml 400 ml Balance 0 ml -1100 ml -200 ml Justicifation of Admission Dx: Justifications for Admission: Justification of Admission Dx: Yes MONTEZ GONZALES MD Nov 16, 2020 10:29
--- NOTE | 2020-11-16 14:16 | PDOC ---
CARDIOLOGY PROGRESS NOTE SUBJECTIVE: Patient reports that he is feeling better. Denies any current chest pain. Urine output has been excellent OBJECTIVE: Vital Signs/I&O: Vital Signs Date Time Temp Pulse Resp B/P (MAP) Pulse Ox O2 Delivery O2 Flow Rate FiO2 11/16/20 11:13 96 Room Air 11/16/20 11:00 97.8 81 18 110/76 (87) 2.0 97.8 I & O 11/15/20 11/15/20 11/16/20 15:00 23:00 07:00 Intake Total 0 ml 300 ml 200 ml Output Total 1400 ml 400 ml Balance 0 ml -1100 ml -200 ml Objective: GEN.: No apparent distress. Alert and oriented. HEENT: Head is normocephalic, atraumatic NECK: Supple. LUNGS: Clear to auscultation. HEART: RRR, S1, S2 present. Peripheral pulses intact ABDOMEN: Soft, nontender. Positive bowel sounds. EXTREMITIES: Without any cyanosis. NEUROLOGIC: Normal speech, normal tone PSYCHIATRIC: Normal affect, normal mood. SKIN: No ulcerations CURRENT MEDICATIONS: Current Medications Medications (Trade) Dose Ordered Sig/Emma Route PRN Reason Start Time Stop Time Status Last Admin Dose Admin Furosemide (Lasix) 40 mg DAILY IVP 11/16/20 09:00 11/16/20 08:46 DIAGNOSTIC TESTING: Labs ASSESSMENT: 1. Acute on chronic systolic CHF; better compensated s/p IV Lasix x1 2. Nonischemic cardiomyopathy; S/p biventricular ICD/WRAPPER COUNTER-D implantation. Device check showed normal function. 2D echo showed LVEF 25 to 30%. 3. Chest pain, atypical. Cardiac catheterization approximately 1 year ago reportedly did not show any significant coronary disease. 4. PAFIB/flutter; presently v-paced with underlying aflutter. rate 115. ? symptomatic from AFIB/flutter (reports dyspnea, panic attack, nausea) 5. Hyperkalemia; better. Entresto held 6. Abdominal pain, nausea; US noted with CBD dilation. as per GI 7. Anxiety, panic attacks PLAN: 1. We will check a routine laboratory profile today. 2. Continue current medical therapy. Aim for another 1 to 2 L negative over the next 24 hours with close monitoring of renal function. Justicifation of Admission Dx: Justifications for Admission: Justification of Admission Dx: Yes GAYATHRI JOHNSON MD Nov 16, 2020 14:16
[2020-11-16] MEDS: MILRINONE 20MG/100ML PREMIX 100 ML IV PRN (15:54)
[2020-11-16 16:01] LABS: CALCIUM 7.9 mg/dL (8.5-10.1); CREATININE 1.1 mg/dL (0.7-1.3); GFR 69.8; POTASSIUM 3.8 mmol/L (3.5-5.1)
[2020-11-16] MEDS: oxyCODONE/APAP 5/325 1 TAB TABLET PO PRN (17:28)
[2020-11-16] MEDS: ENOXAPARIN 40 MG/0.4 ML SYRINGE. SQ SCH (21:00)
[2020-11-17] VITALS (12 sets, daily range): BP systolic 75–117; BP diastolic 41–73
[2020-11-17 05:59] LABS: ALBUMIN 2.8 g/dL (3.4-5.0); CALCIUM 7.8 mg/dL (8.5-10.1); GFR 77.9; POTASSIUM 3.3 mmol/L (3.5-5.1); TOTAL BILIRUBIN 0.8 mg/dL (0.2-1.0); TOTAL PROTEIN 5.7 g/dL (6.4-8.2)
[2020-11-17] MEDS: IPRATRPIUM/ALBUTEROL 0.5/2.5MG 3 ML NEBU. NEB SCH ×4 (07:12→18:49)
[2020-11-17] MEDS: FLUTICASONE/VILANTEROL 100/25 INHALER. INH SCH (07:20)
[2020-11-17] MEDS ORDERED: POTASSIUM CHLORIDE 20 MEQ TABLET.ER. PO ONE ×2 (07:30→12:00)
[2020-11-17] MEDS: ASPIRIN CHEWABLE 81 MG TABLET. PO SCH (08:40)
[2020-11-17] MEDS: SERTRALINE 25 MG TABLET. PO SCH (08:43)
[2020-11-17] MEDS: ACETAMINOPHEN 325 MG TABLET. PO PRN (08:43)
[2020-11-17] MEDS: PANTOPRAZOLE 40 MG TABLET.DR. PO SCH (08:43)
[2020-11-17] MEDS: FUROSEMIDE 40 MG/4 ML VIAL. IVP SCH (08:44)
[2020-11-17] MEDS: SENNOSIDES/DOCUSATE 8.6/50MG TABLET. PO SCH ×2 (08:44→21:00)
[2020-11-17] MEDS: METOPROLOL SUCC 24HR ER 25 MG TAB.ER.24H. PO SCH (08:44)
--- NOTE | 2020-11-17 11:54 | PDOC ---
PROGRESS NOTES Date of Service: DATE: 11/17/20 TIME: 11:54 Chief Complaint Chief Complaint impression A. fib, CAD, k= 5.5 CHF 25% ejection fraction Patient recently admitted for APayal knapp, ejection fraction around 25% / biventricular ICD/FLOOR HELPER-D implantation. Device check / normal function. Discharged however was unable to picker/puller most of his medications; symptoms have only worsened since that discharge she says fluid overloaded on presentation shortness of breath on presentation check Covid resume home medications as they were prescribed at recent discharge. Consult cardiology Cardiac diet Smoking cessation encouraged / provided DVT prophylaxis new onset nausea, abd discomfort 11-12 Has not been on his PPI which contributes to his issues History of Present Illness History of Present Illness Chief Complaint: Problems: (1) Chest pain (2) Hypoxia (3) Shortness of breath Chief Complain: Chest pain, shortness of breath History of Present Illness: HPI: Patient is a 55-year-old male presenting today due to worsening shortness of breath and chest pain. Patient was recently admitted after he thought his ICD fired. He was here for several days and was found to be atrial fibrillation with RVR. After he discharged he was unable to picker/puller some of his medications, including his amiodarone, due to cost. He was able to get his Lopressor and Lasix. History notable for CAD, CHF ejection fraction 25%. Patient says his chest pain has persisted since last admission. He says it did get worse after discharge since he was unable to picker/puller any of his medications. Denies any sort of productive cough or fevers. Patient presented the emergency room found to be relatively fluid overloaded, patient also had a 2 L oxygen requirement after he was found to be saturating mid 80s on room air. Patient was denying any sort of headache, vision changes, abdominal pain, joint pain, dysuria. Past Medical/Surgical History: PMH/PSH: A. fib, CAD, CHF 25% ejection fraction Allergies: Allergies: Coded Allergies: No Known Drug Allergies (Unverified , 10/31/20) Family History: Family History: CAD, hypertension Social History: Social History: Smoker, frequent alcohol use, denies drug use Current Medications: Current Medications Current Medications Ondansetron HCl (Zofran) 4 mg 1X ONCE IVP Last administered on 11/10/20at 16:20; Start 11/10/20 at 14:15; Stop 11/10/20 at 14:16; Status DC Amiodarone HCl (Cordarone) 200 mg DAILY PO ; Start 11/11/20 at 09:00 Aspirin (Aspirin Chewable) 81 mg DAILY PO ; Start 11/11/20 at 09:00 Furosemide (Lasix) 40 mg DAILY PO ; Start 11/11/20 at 09:00 Lorazepam (Ativan) 0.5 mg PRN TID PRN PO ANXIETY / AGITATION; Start 11/10/20 at 16:15 Metoprolol Succinate (Toprol Xl) 75 mg DAILY PO ; Start 11/11/20 at 09:00 Sacubitril/ Valsartan (Entresto 24 Mg-26 Mg) 1 tab BID PO ; Start 11/10/20 at 21:00 Sertraline HCl (Zoloft) 25 mg DAILY PO ; Start 11/11/20 at 09:00 Non-Formulary Medication (Fluticasone/ Salmeterol (Advair 250-50 Diskus)) 1 puff BID IH ; Start 11/10/20 at 21:00; Status UNV Pantoprazole Sodium (Protonix) 40 mg DAILYAC PO ; Start 11/11/20 at 07:30 Non-Formulary Medication (Tiotropium Blossom (Spiriva)) 1 cap DAILY IH ; Start 11/11/20 at 09:00; Status UNV Ondansetron HCl (Zofran) 4 mg PRN Q6HRS PRN IVP NAUSEA/VOMITING; Start 11/10/20 at 16:15 Calcium Carbonate/ Glycine (Tums) 500 mg PRN Q3HRS PRN PO UPSET STOMACH; Start 11/10/20 at 16:15 Zolpidem Tartrate (Ambien) 5 mg PRN QHS PRN PO INSOMNIA, MAY REPEAT IN 1HR; Start 11/10/20 at 16:15 Info (Non-Icu Electrolyte Protocol) 1 ea PRN DAILY PRN MC SEE COMMENTS; Start 11/10/20 at 16:15 Oxycodone HCl (Roxicodone) 5 mg PRN Q3HRS PRN PO BREAKTHROUGH PAIN; Start 11/10/20 at 16:15 Oxycodone/ Acetaminophen (Percocet 5/325) 1 tab PRN Q4HRS PRN PO MILD PAIN, 1ST CHOICE; Start 11/10/20 at 16:15 Oxycodone/ Acetaminophen (Percocet 5/325) 2 tab PRN Q4HRS PRN PO MODERATE PAIN, SEVERE PAIN; Start 11/10/20 at 16:15 Acetaminophen (Tylenol) 650 mg PRN Q6HRS PRN PO Headaches, Temp > 101.5F; Start 11/10/20 at 16:15 Senna/Docusate Sodium (Senna Plus) 1 tab BID PO ; Start 11/10/20 at 21:00 Enoxaparin Sodium (Lovenox 40mg Syringe) 40 mg Q24H SQ ; Start 11/10/20 at 21:00 Albuterol/ Ipratropium (Duoneb) 3 ml RTQID NEB ; Start 11/10/20 at 20:00 Budesonide (Pulmicort) 0.5 mg RTBID NEB ; Start 11/10/20 at 20:00 Active Scripts Active Ativan (Lorazepam) 0.5 Mg Tablet 0.5 Mg PO TID PRN 28 Days Amiodarone Hcl 200 Mg Tablet 200 Mg PO DAILY 30 Days Dicyclomine Hcl 10 Mg Capsule 10 Mg PO PRN QID PRN 14 Days Spiriva (Tiotropium Blossom) 18 Mcg Cap.w.dev 1 Cap IH DAILY 30 Days Entresto 24 mg-26 mg Tablet (Sacubitril/Valsartan) 1 Each Tablet 1 Each PO BID 30 Days Advair 250-50 Diskus (Fluticasone/Salmeterol) 1 Each Disk.w.dev 1 Puff IH BID 30 Days Zoloft (Sertraline Hcl) 25 Mg Tablet 1 Tab PO DAILY 30 Days Protonix (Pantoprazole Sodium) 20 Mg Tablet.dr 2 Tab PO DAILY 30 Days Toprol XL (Metoprolol Succinate) 50 Mg Tab.er.24h 75 Mg PO DAILY 30 Days Furosemide 40 Mg Tablet 1 Tab PO DAILY 30 Days Reported Aspirin 81 Mg Tab.chew 1 Tab PO DAILY ROS: Review of Systems Review of System Negative unless noted in HPI - covid neg abdominal discomfort, nausea new 11-03 ct Gallbladder wall thickening and pericholecystic fluid, which could represent acute cholecystitis. No radiopaque stones are seen by CT. Correlate with laboratory values. If there is persistent concern for choledocholithiasis, MRI could be obtained. GI CONSULTED SONO ORDERED, NPO The common duct is mildly dilated and contains some echogenic material. This may reflect artifact or choledocholithiasis. ON ultrasound /MRCP could further evaluate if the diagnosis is unclear. A. fib, CAD, CHF 25% ejection fraction Patient recently admitted for A. fib, ejection fraction around 25% / biventricular ICD/FLOOR HELPER-D implantation. Device check / normal function. Discharged however was unable to picker/puller most of his medications; symptoms have only worsened since that discharge she says fluid overloaded on presentation shortness of breath on presentation check Covid resume home medications as they were prescribed at recent discharge. Consult cardiology Cardiac diet Smoking cessation encouraged / provided Has not been on his PPI / contributes to his PAIN surgery consult 11-12 labs pending covid neg abdominal discomfort, nausea new 11-03 ct Gallbladder wall thickening and pericholecystic fluid, which could represent acute cholecystitis. No radiopaque stones are seen by CT. Correlate with laboratory values. If there is persistent concern for choledocholithiasis, MRI could be obtained. GI CONSULTED SONO ORDERED, NPO A. fib, CAD, CHF 25% ejection fraction Patient recently admitted for A. fib, ejection fraction around 25% / biventricular ICD/FLOOR HELPER-D implantation. Device check / normal function. Discharged however was unable to picker/puller most of his medications; symptoms have only worsened since that discharge she says fluid overloaded on presentation shortness of breath on presentation check Covid resume home medications as they were prescribed at recent discharge. Consult cardiology Cardiac diet Smoking cessation encouraged / provided Has not been on his PPI / contributes to his PAIN 9-19 positive anti-HCV antibody--need to confirm with PCR assay as too many false positives. Right heart cath noted. Continue diuresis Elevated right and left-sided filling pressures RIGHT HEART CATH 9-17 No evidence of intracardiac shunt Aggressive diuresis with inotropic support covid neg abdominal discomfort, nausea new 11-03 ct Gallbladder wall thickening and pericholecystic fluid, which could represent acute cholecystitis. No radiopaque stones are seen by CT. Correlate with laboratory values. If there is persistent concern for choledocholithiasis, MRI could be obtained. GI CONSULTED SONO ORDERED,try reg diet The common duct is mildly dilated and contains some echogenic material. This may reflect artifact or choledocholithiasis. ON ultrasound /MRCP could further evaluate if the diagnosis is unclear. A. fib, CAD, CHF 25% ejection fraction Patient recently admitted for A. fib, ejection fraction around 25% / biventricular ICD/FLOOR HELPER-D implantation. Device check / normal function. Discharged however was unable to picker/puller most of his medications; symptoms have only worsened since that discharge she says fluid overloaded on presentation shortness of breath on presentation check Covid resume home medications as they were prescribed at recent discharge. Consult cardiology Cardiac diet Smoking cessation encouraged / provided Has not been on his PPI / contributes to his PAIN surgery consult nonsurgical abdomen D/W RN 11-11 labs pending covid neg A. fib, CAD, CHF 25% ejection fraction Patient recently admitted for A. fib, ejection fraction around 25% / biventricular ICD/FLOOR HELPER-D implantation. Device check / normal function. Discharged however was unable to picker/puller most of his medications; symptoms have only worsened since that discharge she says fluid overloaded on presentation shortness of breath on presentation check Covid resume home medications as they were prescribed at recent discharge. Consult cardiology Cardiac diet Smoking cessation encouraged / provided 11-14 covid neg abdominal discomfort, nausea new 11-03 ct Gallbladder wall thickening and pericholecystic fluid, which could represent acute cholecystitis. No radiopaque stones are seen by CT. Correlate with laboratory values. If there is persistent concern for choledocholithiasis, MRI could be obtained. GI CONSULTED SONO ORDERED,try clears The common duct is mildly dilated and contains some echogenic material. This may reflect artifact or choledocholithiasis. ON ultrasound /MRCP could further evaluate if the diagnosis is unclear. A. fib, CAD, CHF 25% ejection fraction Patient recently admitted for A. fib, ejection fraction around 25% / biventricular ICD/FLOOR HELPER-D implantation. Device check / normal function. Discharged however was unable to picker/puller most of his medications; symptoms have only worsened since that discharge she says fluid overloaded on presentation shortness of breath on presentation check Covid resume home medications as they were prescribed at recent discharge. Consult cardiology Cardiac diet Smoking cessation encouraged / provided Has not been on his PPI / contributes to his PAIN surgery consult nonsurgical abdomen D/W DR GARCIA IN [place] 11-16 positive anti-HCV antibody--need to confirm with PCR assay as too many false positives. Right heart cath noted. Continue diuresis Elevated right and left-sided filling pressures RIGHT HEART CATH 11-15 No evidence of intracardiac shunt Aggressive diuresis with inotropic support covid neg abdominal discomfort, nausea new 11-03 ct Gallbladder wall thickening and pericholecystic fluid, which could represent acute cholecystitis. No radiopaque stones are seen by CT. Correlate with laboratory values. If there is persistent concern for choledocholithiasis, MRI could be obtained. GI CONSULTED SONO ORDERED,try reg diet The common duct is mildly dilated and contains some echogenic material. This may reflect artifact or choledocholithiasis. ON ultrasound /MRCP could further evaluate if the diagnosis is unclear. A. fib, CAD, CHF 25% ejection fraction Patient recently admitted for A. fib, ejection fraction around 25% / biventricular ICD/FLOOR HELPER-D implantation. Device check / normal function. Discharged however was unable to picker/puller most of his medications; symptoms have only worsened since that discharge she says fluid overloaded on presentation shortness of breath on presentation check Covid resume home medications as they were prescribed at recent discharge. Consult cardiology Cardiac diet Smoking cessation encouraged / provided Has not been on his PPI / contributes to his PAIN surgery consult nonsurgical abdomen D/W RN 11-15 Elevated right and left-sided filling pressures RIGHT HEART CATH 11-15 No evidence of intracardiac shunt Aggressive diuresis with inotropic support covid neg abdominal discomfort, nausea new 11-03 ct Gallbladder wall thickening and pericholecystic fluid, which could represent acute cholecystitis. No radiopaque stones are seen by CT. Correlate with laboratory values. If there is persistent concern for choledocholithiasis, MRI could be obtained. GI CONSULTED SONO ORD ERED,try clears The common duct is mildly dilated and contains some echogenic material. This may reflect artifact or choledocholithiasis. ON ultrasound /MRCP could further evaluate if the diagnosis is unclear. A. fib, CAD, CHF 25% ejection fraction Patient recently admitted for A. fib, ejection fraction around 25% / biventricular ICD/FLOOR HELPER-D implantation. Device check / normal function. Discharged however was unable to picker/puller most of his medications; symptoms have only worsened since that discharge she says fluid overloaded on presentation shortness of breath on presentation check Covid resume home medications as they were prescribed at recent discharge. Consult cardiology Cardiac diet Smoking cessation encouraged / provided Has not been on his PPI / contributes to his PAIN surgery consult nonsurgical abdomen D/W DR GARCIA IN [place] 11-12 labs pending covid neg abdominal discomfort, nausea new 11-03 ct Gallbladder wall thickening and pericholecystic fluid, which could represent acute cholecystitis. No radiopaque stones are seen by CT. Correlate with laboratory values. If there is persistent concern for choledocholithiasis, MRI could be obtained. GI CONSULTED SONO ORDERED, NPO A. fib, CAD, CHF 25% ejection fraction Patient recently admitted for A. fib, ejection fraction around 25% / biventricular ICD/FLOOR HELPER-D implantation. Device check / normal function. Discharged however was unable to picker/puller most of his medications; symptoms have only worsened since that discharge she says fluid overloaded on presentation shortness of breath on presentation check Covid resume home medications as they were prescribed at recent discharge. Consult cardiology Cardiac diet Smoking cessation encouraged / provided Has not been on his PPI / contributes to his PAIN Vitals Vitals Vital Signs Date Time Temp Pulse Resp B/P (MAP) Pulse Ox O2 Delivery O2 Flow Rate FiO2 11/17/20 10:47 97.8 78 20 105/69 (81) 97 Room Air 97.8 11/16/20 11:00 2.0 Physical Exam Physical Exam GEN: Mild distress HEENT: Normal cephalic, atraumatic, external auditory canals are patent EYES: Extraocular muscles are intact, pupil are equally round and reactive to light and accommodation MUSCULOSKELETAL: Well developed , well nourished, good range of motion ENDOCRINE: No thyromegaly was palpated LYMPHATICS: No cervical chain or axillary nodes were noted HEMATOPOIETIC: No bruising NECK: Supple, no JVD, no thyromegaly was noted LUNGS: Bibasilar crackles HEART: Irregularly irregular, peripheral pulses intact ABDOMEN: MILDLY tender. Positive bowel sounds, no organomegaly, normal bowel sounds EXTREMITIES: Bilateral lower extremity pitting edema NEUROLOGIC: Normal speech and tone. A&O x 3, moves all extremities, no obvious focal deficits PSYCHIATRIC: Normal affect, normal mood. Stable SKIN: No ulcerations or rashes, good skin turgor, no jaundice VASCULAR: Good capillary refill, neurovascular bundle appears to be intact General: Alert, Oriented X3, Cooperative, No acute distress Heart: Regular rate, Normal S1, Normal S2, No murmurs Lungs: Clear Abdomen: Normal bowel sounds, Soft, No tenderness, No hepatosplenomegaly, No masses Extremities: No clubbing, No cyanosis, No edema Skin: No significant lesion Labs LABS Laboratory Tests Test 11/16/20 15:10 11/17/20 04:30 Sodium Level 129 mmol/L (136-145) 132 mmol/L (136-145) Potassium Level 3.8 mmol/L (3.5-5.1) 3.3 mmol/L (3.5-5.1) Chloride Level 93 mmol/L (98-107) 94 mmol/L (98-107) Carbon Dioxide Level 30 mmol/L (21-32) 32 mmol/L (21-32) Anion Gap 6 (6-14) 6 (6-14) Blood Urea Nitrogen 26 mg/dL (8-26) 21 mg/dL (8-26) Creatinine 1.1 mg/dL (0.7-1.3) 1.0 mg/dL (0.7-1.3) Estimated GFR (Cockcroft-Gault) 69.8 77.9 Glucose Level 107 mg/dL (70-99) 114 mg/dL (70-99) Calcium Level 7.9 mg/dL (8.5-10.1) 7.8 mg/dL (8.5-10.1) BUN/Creatinine Ratio 21 (6-20) Total Bilirubin 0.8 mg/dL (0.2-1.0) Aspartate Amino Transf (AST/SGOT) 1172 U/L (15-37) Alanine Aminotransferase (ALT/SGPT) 2279 U/L (16-63) Alkaline Phosphatase 75 U/L (46-116) Total Protein 5.7 g/dL (6.4-8.2) Albumin 2.8 g/dL (3.4-5.0) Albumin/Globulin Ratio 1.0 (1.0-1.7) Assessment and Plan Assessmemt and Plan Problems Medical Problems: (1) Chest pain Status: Acute (2) Hypoxia Status: Acute Comment Review of Relevant I have reviewed the following items rommel (where applicable) has been applied. Labs Laboratory Tests Test 11/16/20 15:10 11/17/20 04:30 Sodium Level 129 mmol/L (136-145) 132 mmol/L (136-145) Potassium Level 3.8 mmol/L (3.5-5.1) 3.3 mmol/L (3.5-5.1) Chloride Level 93 mmol/L (98-107) 94 mmol/L (98-107) Carbon Dioxide Level 30 mmol/L (21-32) 32 mmol/L (21-32) Anion Gap 6 (6-14) 6 (6-14) Blood Urea Nitrogen 26 mg/dL (8-26) 21 mg/dL (8-26) Creatinine 1.1 mg/dL (0.7-1.3) 1.0 mg/dL (0.7-1.3) Estimated GFR (Cockcroft-Gault) 69.8 77.9 Glucose Level 107 mg/dL (70-99) 114 mg/dL (70-99) Calcium Level 7.9 mg/dL (8.5-10.1) 7.8 mg/dL (8.5-10.1) BUN/Creatinine Ratio 21 (6-20) Total Bilirubin 0.8 mg/dL (0.2-1.0) Aspartate Amino Transf (AST/SGOT) 1172 U/L (15-37) Alanine Aminotransferase (ALT/SGPT) 2279 U/L (16-63) Alkaline Phosphatase 75 U/L (46-116) Total Protein 5.7 g/dL (6.4-8.2) Albumin 2.8 g/dL (3.4-5.0) Albumin/Globulin Ratio 1.0 (1.0-1.7) Laboratory Tests Test 11/16/20 15:10 11/17/20 04:30 Sodium Level 129 mmol/L (136-145) 132 mmol/L (136-145) Potassium Level 3.8 mmol/L (3.5-5.1) 3.3 mmol/L (3.5-5.1) Chloride Level 93 mmol/L (98-107) 94 mmol/L (98-107) Carbon Dioxide Level 30 mmol/L (21-32) 32 mmol/L (21-32) Anion Gap 6 (6-14) 6 (6-14) Blood Urea Nitrogen 26 mg/dL (8-26) 21 mg/dL (8-26) Creatinine 1.1 mg/dL (0.7-1.3) 1.0 mg/dL (0.7-1.3) Estimated GFR (Cockcroft-Gault) 69.8 77.9 Glucose Level 107 mg/dL (70-99) 114 mg/dL (70-99) Calcium Level 7.9 mg/dL (8.5-10.1) 7.8 mg/dL (8.5-10.1) BUN/Creatinine Ratio 21 (6-20) Total Bilirubin 0.8 mg/dL (0.2-1.0) Aspartate Amino Transf (AST/SGOT) 1172 U/L (15-37) Alanine Aminotransferase (ALT/SGPT) 2279 U/L (16-63) Alkaline Phosphatase 75 U/L (46-116) Total Protein 5.7 g/dL (6.4-8.2) Albumin 2.8 g/dL (3.4-5.0) Albumin/Globulin Ratio 1.0 (1.0-1.7) Medications Current Medications Ondansetron HCl (Zofran) 4 mg 1X ONCE IVP Last administered on 11/10/20at 16:20; Start 11/10/20 at 14:15; Stop 11/10/20 at 14:16; Status DC Amiodarone HCl (Cordarone) 200 mg DAILY PO Last administered on 11/15/20at 08:58; Start 11/11/20 at 09:00; Stop 11/15/20 at 11:41; Status DC Aspirin (Aspirin Chewable) 81 mg DAILY PO Last administered on 11/17/20at 08:40; Start 11/11/20 at 09:00 Furosemide (Lasix) 40 mg DAILY PO Last administered on 11/14/20at 10:34; Start 11/11/20 at 09:00; Stop 11/14/20 at 15:28; Status DC Lorazepam (Ativan) 0.5 mg PRN TID PRN PO ANXIETY / AGITATION Last administered on 11/14/20at 10:35; Start 11/10/20 at 16:15 Metoprolol Succinate (Toprol Xl) 75 mg DAILY PO Last administered on 11/14/20at 10:34; Start 11/11/20 at 09:00; Stop 11/14/20 at 11:27; Status DC Sacubitril/ Valsartan (Entresto 24 Mg-26 Mg) 1 tab BID PO Last administered on 11/11/20at 09:25; Start 11/10/20 at 21:00; Stop 11/11/20 at 16:33; Status DC Sertraline HCl (Zoloft) 25 mg DAILY PO Last administered on 11/17/20at 08:43; Start 11/11/20 at 09:00 Non-Formulary Medication (Fluticasone/ Salmeterol (Advair 250-50 Diskus)) 1 puff BID IH ; Start 11/10/20 at 21:00; Status UNV Pantoprazole Sodium (Protonix) 40 mg DAILYAC PO Last administered on 11/17/20at 08:43; Start 11/11/20 at 07:30 Non-Formulary Medication (Tiotropium Blossom (Spiriva)) 1 cap DAILY IH ; Start 11/11/20 at 09:00; Status UNV Ondansetron HCl (Zofran) 4 mg PRN Q6HRS PRN IVP NAUSEA/VOMITING Last administered on 11/14/20at 08:59; Start 11/10/20 at 16:15 Calcium Carbonate/ Glycine (Tums) 500 mg PRN Q3HRS PRN PO UPSET STOMACH; Start 11/10/20 at 16:15 Zolpidem Tartrate (Ambien) 5 mg PRN QHS PRN PO INSOMNIA, MAY REPEAT IN 1HR Last administered on 11/11/20at 22:29; Start 11/10/20 at 16:15 Info (Non-Icu Electrolyte Protocol) 1 ea PRN DAILY PRN MC SEE COMMENTS; Start 11/10/20 at 16:15 Oxycodone HCl (Roxicodone) 5 mg PRN Q3HRS PRN PO BREAKTHROUGH PAIN Last administered on 11/15/20at 22:47; Start 11/10/20 at 16:15 Oxycodone/ Acetaminophen (Percocet 5/325) 1 tab PRN Q4HRS PRN PO MILD PAIN, 1ST CHOICE Last administered on 11/14/20at 10:35; Start 11/10/20 at 16:15 Oxycodone/ Acetaminophen (Percocet 5/325) 2 tab PRN Q4HRS PRN PO MODERATE PAIN, SEVERE PAIN Last administered on 11/16/20at 17:28; Start 11/10/20 at 16:15 Acetaminophen (Tylenol) 650 mg PRN Q6HRS PRN PO Headaches, Temp > 101.5F Last administered on 11/17/20at 08:43; Start 11/10/20 at 16:15 Senna/Docusate Sodium (Senna Plus) 1 tab BID PO Last administered on 11/16/20at 21:37; Start 11/10/20 at 21:00 Enoxaparin Sodium (Lovenox 40mg Syringe) 40 mg Q24H SQ Last administered on 11/16/20at 21:00; Start 11/10/20 at 21:00 Albuterol/ Ipratropium (Duoneb) 3 ml RTQID NEB ; Start 11/10/20 at 20:00; Stop 11/10/20 at 20:43; Status DC Budesonide (Pulmicort) 0.5 mg RTBID NEB ; Start 11/10/20 at 20:00; Stop 11/10/20 at 20:43; Status DC Fluticasone/ Vilanterol (Breo Ellipta 100-25 Mcg) 1 puff DAILY INH Last administered on 11/15/20at 09:03; Start 11/10/20 at 21:00 Furosemide (Lasix) 40 mg 1X ONCE IVP Last administered on 11/11/20at 17:20; Start 11/11/20 at 16:45; Stop 11/11/20 at 16:46; Status DC Furosemide (Lasix) 40 mg 1X ONCE IVP ; Start 11/12/20 at 16:15; Stop 11/12/20 at 16:19; Status DC Metoprolol Tartrate (Lopressor Vial) 5 mg 1X ONCE IVP Last administered on 11/13/20at 17:18; Start 11/13/20 at 15:45; Stop 11/13/20 at 15:46; Status DC Furosemide (Lasix) 40 mg 1X ONCE IVP Last administered on 11/13/20at 17:17; Start 11/13/20 at 15:45; Stop 11/13/20 at 15:46; Status DC Albuterol/ Ipratropium (Duoneb) 3 ml RTQID NEB Last administered on 11/17/20at 07:12; Start 11/14/20 at 12:00 Metoprolol Succinate (Toprol Xl) 100 mg DAILY PO Last administered on 11/17/20at 08:44; Start 11/15/20 at 09:00 Metoprolol Succinate (Toprol Xl) 25 mg 1X ONCE PO ; Start 11/14/20 at 11:30; Stop 11/14/20 at 11:31; Status DC Digoxin (Lanoxin) 500 mcg 1X ONCE IV Last administered on 11/14/20at 15:10; Start 11/14/20 at 11:30; Stop 11/14/20 at 11:31; Status DC Furosemide (Lasix) 40 mg 1X ONCE IVP ; Start 11/14/20 at 14:30; Stop 11/14/20 at 14:48; Status DC Sodium Chloride 1,000 ml @ 75 mls/hr [id number] IV ; Start 11/14/20 at 14:45; Stop 11/14/20 at 15:05; Status DC Sodium Chloride 1,000 ml @ 250 mls/hr 1X ONCE IV Last administered on 11/14/20at 15:10; Start 11/14/20 at 15:00; Stop 11/14/20 at 16:22; Status DC Milrinone Lactate/ Dextrose 100 ml @ 0 mls/hr CONT PRN IV SEE I/O RECORD Last administered on 11/16/20at 15:54; Start 11/14/20 at 16:30 Sodium Bicarbonate (Sodium Bicarb Adult 8.4% Syr) 50 meq 1X ONCE IV Last admin istered on 11/14/20at 18:18; Start 11/14/20 at 18:00; Stop 11/14/20 at 18:01; Status DC Dextrose (Dextrose 50%-Water Syringe) 25 gm 1X ONCE IV Last administered on 11/14/20at 18:27; Start 11/14/20 at 18:00; Stop 11/14/20 at 18:01; Status DC Insulin Human Regular (HumuLIN R VIAL) 10 unit 1X ONCE IV ; Start 11/14/20 at 18:15; Stop 11/14/20 at 18:16; Status Cancel Insulin Human Regular 10 unit/ Sodium Chloride 2 ml @ 100 mls/hr 1X ONCE IV Last administered on 11/14/20at 18:27; Start 11/14/20 at 18:15; Stop 11/14/20 at 18:16; Status DC Fentanyl Citrate (Fentanyl 2ml Vial) 100 mcg STK-MED ONCE .ROUTE ; Start 11/15/20 at 10:19; Stop 11/15/20 at 10:19; Status DC Midazolam HCl (Versed) 2 mg STK-MED ONCE .ROUTE ; Start 11/15/20 at 10:19; Stop 11/15/20 at 10:19; Status DC Lidocaine HCl (Lidocaine 1% 20ml Vial) 20 ml STK-MED ONCE .ROUTE ; Start 11/15/20 at 10:54; Stop 11/15/20 at 10:54; Status DC Heparin Sodium/ Sodium Chloride 500 ml @ As Directed STK-MED ONCE .ROUTE ; Start 11/15/20 at 10:54; Stop 11/15/20 at 10:54; Status DC Midazolam HCl (Versed) 2 mg STK-MED ONCE .ROUTE ; Start 11/15/20 at 11:05; Stop 11/15/20 at 11:05; Status DC Heparin Sodium/ Sodium Chloride (HEPARIN for ARTERIAL LINE FLUSH) 1,000 unit 1X ONCE IART Last administered on 11/15/20at 11:24; Start 11/15/20 at 11:30; Stop 11/15/20 at 11:31; Status DC Midazolam HCl (Versed) 3 mg 1X ONCE IV Last administered on 11/15/20at 11:25; Start 11/15/20 at 11:30; Stop 11/15/20 at 11:31; Status DC Fentanyl Citrate (Fentanyl 2ml Vial) 100 mcg 1X ONCE IV Last administered on 11/15/20at 11:26; Start 11/15/20 at 11:30; Stop 11/15/20 at 11:31; Status DC Lidocaine HCl (Lidocaine 1% 20ml Vial) 20 ml 1X ONCE INJ Last administered on 11/15/20at 11:24; Start 11/15/20 at 11:30; Stop 11/15/20 at 11:31; Status DC Furosemide (Lasix) 40 mg DAILY IVP Last administered on 11/17/20at 08:44; Start 11/16/20 at 09:00 Furosemide (Lasix) 40 mg 1X ONCE IVP Last administered on 11/15/20at 14:09; Start 11/15/20 at 11:45; Stop 11/15/20 at 11:46; Status DC Potassium Chloride (Klor-Con) 40 meq 1X ONCE PO Last administered on 11/17/20at 08:43; Start 11/17/20 at 07:30; Stop 11/17/20 at 07:32; Status DC Active Scripts Active Ativan (Lorazepam) 0.5 Mg Tablet 0.5 Mg PO TID PRN 28 Days Amiodarone Hcl 200 Mg Tablet 200 Mg PO DAILY 30 Days Dicyclomine Hcl 10 Mg Capsule 10 Mg PO PRN QID PRN 14 Days Spiriva (Tiotropium Blossom) 18 Mcg Cap.w.dev 1 Cap IH DAILY 30 Days Entresto 24 mg-26 mg Tablet (Sacubitril/Valsartan) 1 Each Tablet 1 Each PO BID 30 Days Advair 250-50 Diskus (Fluticasone/Salmeterol) 1 Each Disk.w.dev 1 Puff IH BID 30 Days Zoloft (Sertraline Hcl) 25 Mg Tablet 1 Tab PO DAILY 30 Days Protonix (Pantoprazole Sodium) 20 Mg Tablet.dr 2 Tab PO DAILY 30 Days Toprol XL (Metoprolol Succinate) 50 Mg Tab.er.24h 75 Mg PO DAILY 30 Days Furosemide 40 Mg Tablet 1 Tab PO DAILY 30 Days Reported Aspirin 81 Mg Tab.chew 1 Tab PO DAILY Vitals/I & O Vital Sign - Last 24 Hours 11/16/20 11/16/20 11/16/20 11/16/20 12:30 13:30 15:10 15:12 Temp 97.7 97.7 Pulse 75 75 75 Resp 20 B/P (MAP) 110/68 (82) 110/68 (82) 99/56 (70) Pulse Ox 94 97 O2 Delivery Room Air Room Air 11/16/20 11/16/20 11/16/20 11/16/20 16:30 17:28 17:30 17:58 Pulse 78 79 Resp 18 18 B/P (MAP) 103/57 (72) 103/69 (80) O2 Delivery Room Air Room Air 11/16/20 11/16/20 11/16/20 11/16/20 18:29 19:00 19:58 20:00 Temp 98.0 98.0 Pulse 84 74 Resp 18 B/P (MAP) 105/60 (75) 105/65 (78) Pulse Ox 97 97 O2 Delivery Room Air Room Air Room Air 11/16/20 11/17/20 11/17/20 11/17/20 23:00 03:00 07:00 07:12 Temp 98.3 97.5 98.0 98.3 97.5 98.0 Pulse 78 84 83 Resp 16 19 20 B/P (MAP) 107/68 (81) 98/66 (77) 90/46 (61) Pulse Ox 97 96 97 97 O2 Delivery Room Air Room Air Room Air Room Air 11/17/20 11/17/20 11/17/20 08:00 08:44 10:47 Temp 97.8 97.8 Pulse 84 78 Resp 20 B/P (MAP) 98/66 105/69 (81) Pulse Ox 97 O2 Delivery Room Air Room Air Intake and Output 11/16/20 11/16/20 11/17/20 15:00 23:00 07:00 Intake Total 400 ml 500 ml 600 ml Output Total 600 ml 400 ml Balance 400 ml -100 ml 200 ml Justicifation of Admission Dx: Justifications for Admission: Justification of Admission Dx: Yes MONTEZ GONZALES MD Nov 17, 2020 11:54
--- NOTE | 2020-11-17 12:42 | PDOC ---
CARDIOLOGY PROGRESS NOTE SUBJECTIVE: No new issues. Reports feeling better. Denies any chest pain. OBJECTIVE: Vital Signs/I&O: Vital Signs Date Time Temp Pulse Resp B/P (MAP) Pulse Ox O2 Delivery O2 Flow Rate FiO2 11/17/20 10:47 97.8 78 20 105/69 (81) 97 Room Air 97.8 11/16/20 11:00 2.0 I & O 11/16/20 11/16/20 11/17/20 15:00 23:00 07:00 Intake Total 400 ml 500 ml 600 ml Output Total 600 ml 400 ml Balance 400 ml -100 ml 200 ml Objective: GEN.: No apparent distress. Alert and oriented. HEENT: Head is normocephalic, atraumatic NECK: Supple. LUNGS: Clear to auscultation. HEART: RRR, S1, S2 present. Peripheral pulses intact ABDOMEN: Soft, nontender. Positive bowel sounds. EXTREMITIES: Without any cyanosis. NEUROLOGIC: Normal speech, normal tone PSYCHIATRIC: Normal affect, normal mood. SKIN: No ulcerations CURRENT MEDICATIONS: Current Medications Medications (Trade) Dose Ordered Sig/Emma Route PRN Reason Start Time Stop Time Status Last Admin Dose Admin Potassium Chloride (Klor-Con) 40 meq 1X ONCE PO 11/17/20 07:30 11/17/20 07:32 DC 11/17/20 08:43 DIAGNOSTIC TESTING: labs reviewed. Labs: Laboratory Tests 11/17/20 04:30 Laboratory Tests Test 11/16/20 15:10 11/17/20 04:30 Sodium Level 129 mmol/L (136-145) L 132 mmol/L (136-145) L Potassium Level 3.8 mmol/L (3.5-5.1) 3.3 mmol/L (3.5-5.1) L Chloride Level 93 mmol/L (98-107) L 94 mmol/L (98-107) L Carbon Dioxide Level 30 mmol/L (21-32) 32 mmol/L (21-32) Anion Gap 6 (6-14) 6 (6-14) Blood Urea Nitrogen 26 mg/dL (8-26) 21 mg/dL (8-26) Creatinine 1.1 mg/dL (0.7-1.3) 1.0 mg/dL (0.7-1.3) Estimated GFR (Cockcroft-Gault) 69.8 77.9 Glucose Level 107 mg/dL (70-99) H 114 mg/dL (70-99) H Calcium Level 7.9 mg/dL (8.5-10.1) L 7.8 mg/dL (8.5-10.1) L BUN/Creatinine Ratio 21 (6-20) H Total Bilirubin 0.8 mg/dL (0.2-1.0) Aspartate Amino Transf (AST/SGOT) 1172 U/L (15-37) H Alkaline Phosphatase 75 U/L (46-116) Total Protein 5.7 g/dL (6.4-8.2) L Albumin 2.8 g/dL (3.4-5.0) L Albumin/Globulin Ratio 1.0 (1.0-1.7) ASSESSMENT: 1. Ischemic CMP PLAN: 1. Continue milrinone till tomorrow. -Will start GDMT with entresto, spironolactone and continue toprol Justicifation of Admission Dx: Justifications for Admission: Justification of Admission Dx: Yes GAYATHRI JOHNSON MD Nov 17, 2020 12:42
[2020-11-17] MEDS: SACUBITRIL/VALSARTAN 24/26MG TABLET. PO SCH (22:07)
[2020-11-17] MEDS: oxyCODONE/APAP 5/325 1 TAB TABLET PO PRN (22:08)
[2020-11-17] MEDS: ENOXAPARIN 40 MG/0.4 ML SYRINGE. SQ SCH (22:11)
[2020-11-18 03:00] VITALS: BP 110/67
[2020-11-18 04:41] LABS: CALCIUM 8.3 mg/dL (8.5-10.1); CREATININE 1.1 mg/dL (0.7-1.3); GFR 69.8; POTASSIUM 3.9 mmol/L (3.5-5.1)
[2020-11-18 07:00] VITALS: BP 98/58
[2020-11-18] MEDS: IPRATRPIUM/ALBUTEROL 0.5/2.5MG 3 ML NEBU. NEB SCH ×2 (08:21→11:45)
[2020-11-18 08:50] VITALS: BP 102/62
[2020-11-18] MEDS: SENNOSIDES/DOCUSATE 8.6/50MG TABLET. PO SCH (08:52)
[2020-11-18] MEDS: SERTRALINE 25 MG TABLET. PO SCH (08:53)
[2020-11-18] MEDS: PANTOPRAZOLE 40 MG TABLET.DR. PO SCH (08:53)
[2020-11-18] MEDS: ASPIRIN CHEWABLE 81 MG TABLET. PO SCH (08:53)
[2020-11-18] MEDS: FUROSEMIDE 40 MG/4 ML VIAL. IVP SCH (08:53)
[2020-11-18] MEDS: FLUTICASONE/VILANTEROL 100/25 INHALER. INH SCH (08:59)
[2020-11-18] MEDS ORDERED: SPIRONOLACTONE 25 MG TABLET PO SCH (09:00)
--- NOTE | 2020-11-18 10:33 | PDOC ---
Date of Service: DATE: 11/18/20 TIME: 10:27 Subjective: Subjective: Not interested in talking much this morning - says vomited "brown foam" yesterday and didn't want to eat this morning because potassium left a bad taste in his mouth. Stooling without issue, abdomen still hurts - doesn't really elaborate on this... then says it's better. Objective: Vital Signs: Vital Signs Date Time Temp Pulse Resp B/P (MAP) Pulse Ox O2 Delivery O2 Flow Rate FiO2 11/18/20 08:50 68 102/62 (75) 11/18/20 08:00 Room Air 11/18/20 07:00 97.7 18 97 97.7 Labs: Laboratory Tests Test 11/18/20 04:00 Sodium Level 134 mmol/L Potassium Level 3.9 mmol/L Chloride Level 97 mmol/L Carbon Dioxide Level 29 mmol/L Anion Gap 8 Blood Urea Nitrogen 18 mg/dL Creatinine 1.1 mg/dL Estimated GFR (Cockcroft-Gault) 69.8 Glucose Level 156 mg/dL Calcium Level 8.3 mg/dL PE: GEN: resting LUNGS: diminished anteriorly, poor effort, room air HEART: RR ABD: soft, non-specific tenderness to light palpation - mild NEURO/PSYCH: A & O 3, flat affect A/P: ICM, A Fib, anxiety, h/o non-compliance Abd pain GERD - on PPI Elevated AST and ALT - bit better (checked yesterday), still impressive - poor perfusion Hep C Ab + (PCR confirmation pending) Alcohol history COVID negative -- Ongoing vague complaints. Continue support per GI, continue PPI, watch LFTs. Outpt scopes when home in [place]. Justicifation of Admission Dx: Justifications for Admission: Justification of Admission Dx: Yes GEOVANNI PASTOR Nov 18, 2020 10:33
[2020-11-18 11:00] VITALS: BP 103/62
--- NOTE | 2020-11-18 11:35 | PDOC ---
BERHANE SERRANO SPA ATTENDANT 11/18/20 1135: CARDIO Progress Notes Date and Time Date of Service 11/18/20 Time of Evaluation 1130 Subjective Subjective: No Chest Pain, No Palpitations, No Dizziness, Other (breathing improved ) Vitals Vitals Vital Signs Date Time Temp Pulse Resp B/P (MAP) Pulse Ox O2 Delivery O2 Flow Rate FiO2 11/18/20 08:50 68 102/62 (75) 11/18/20 08:00 Room Air 11/18/20 07:00 97.7 18 97 97.7 Weight Weight [ ] Input and Output Intake and Output Intake and Output 11/18/20 07:00 Intake Total 800 ml Output Total 3150 ml Balance -2350 ml Intake Oral 800 ml Output Urine Total 3150 ml Laboratory Labs Laboratory Tests Test 11/18/20 04:00 Sodium Level 134 mmol/L (136-145) Potassium Level 3.9 mmol/L (3.5-5.1) Chloride Level 97 mmol/L (98-107) Carbon Dioxide Level 29 mmol/L (21-32) Anion Gap 8 (6-14) Blood Urea Nitrogen 18 mg/dL (8-26) Creatinine 1.1 mg/dL (0.7-1.3) Estimated GFR (Cockcroft-Gault) 69.8 Glucose Level 156 mg/dL (70-99) Calcium Level 8.3 mg/dL (8.5-10.1) Physical Exam HEENT: Neck Supple W Full Motion Chest: Symmetric LUNGS: Other (diminished bases) Heart: RRR (SR) Abdomen: Soft N/T Extremities: No Edema Neurology: alert, oriented, follow commands Assessment Assessment 1. Acute on chronic systolic CHF; RHC with elevated pressure. s/p inotropic support with milrinone and Lasix therapy. off milrinone. Appears compensated 2. Nonischemic cardiomyopathy; S/p biventricular ICD/ELECTRONICS ENGINEER-D implantation. Device check showed normal function. 2D echo showed LVEF 25 to 30%. 3. Chest pain, atypical. Cardiac catheterization approximately 1 year ago reportedly did not show any significant coronary disease. 4. PAFIB/flutter; presently SR 5. NELSON, hyperkalemia; improved 6. Abdominal pain, nausea; US noted with CBD dilation. as per GI. now resolved Recommendations HF optimization with Toprol, Entresto, spironolactone, Lasix SS following for assistance with meds Metoprolol for rate control Amiodarone for rhythm maintenance Eliquis for stroke prophylaxis Supportive care Follow up with primary rafter cutting machine operator upon discharge. Justicifation of Admission Dx: Justifications for Admission: Justification of Admission Dx: Yes TIBURCIO WATT MD 11/19/20 0847: CARDIO Progress Notes Assessment Assessment Patient seen and examined 11/18/2020. Agree with SPA ATTENDANT's assessment and plan. Acute on chronic systolic heart failure much better compensated. PAF maintaining sinus rhythm. Continue amiodarone for rhythm maintenance and Eliquis for stroke prophylaxis. Follow-up with primary rafter cutting machine operator. BERHANE SERRANO APRN Nov 18, 2020 11:35 TIBURCIO WATT MD Nov 19, 2020 08:47
[2020-11-18] MEDS: SACUBITRIL/VALSARTAN 24/26MG TABLET. PO SCH (11:48)
--- NOTE | 2020-11-18 12:16 | PDOC ---
[facility] PROGRESS NOTE Date of Service DOS: DATE: 11/18/20 TIME: 12:10 Chief Complaint Chief Complaint impression A. fib, CAD, k= 5.5 CHF 25% ejection fraction Patient recently admitted for A. fib, ejection fraction around 25% / biventricular ICD/[employer]-D implantation. Device check / normal function. Discharged however was unable to mixing picker tender most of his medications; symptoms have only worsened since that discharge she says fluid overloaded on presentation shortness of breath on presentation check Covid resume home medications as they were prescribed at recent discharge. Consult cardiology Cardiac diet Smoking cessation encouraged / provided DVT prophylaxis new onset nausea, abd discomfort 11-12 Has not been on his PPI which contributes to his issues History of Present Illness History of Present Illness Chief Complaint: Problems: (1) Chest pain (2) Hypoxia (3) Shortness of breath Chief Complain: Chest pain, shortness of breath History of Present Illness: HPI: 11/19/2019: Patient seen and examined. Chart reviewed. Patient is back to baseline. Patient is a 55-year-old male presenting today due to worsening shortness of breath and chest pain. Patient was recently admitted after he thought his ICD fired. He was here for several days and was found to be atrial fibrillation w ith RVR. After he discharged he was unable to mixing picker tender some of his medications, including his amiodarone, due to cost. He was able to get his Lopressor and Lasix. History notable for CAD, CHF ejection fraction 25%. Patient says his chest pain has persisted since last admission. He says it did get worse after discharge since he was unable to mixing picker tender any of his medications. Denies any sort of productive cough or fevers. Patient presented the emergency room found to be relatively fluid overloaded, patient also had a 2 L oxygen requirement after he was found to be saturating mid 80s on room air. Patient was denying any sort of headache, vision changes, abdominal pain, joint pain, dysuria. Past Medical/Surgical History: PMH/PSH: A. fib, CAD, CHF 25% ejection fraction Allergies: Allergies: Coded Allergies: No Known Drug Allergies (Unverified , 10/31/20) Family History: Family History: CAD, hypertension Social History: Social History: Smoker, frequent alcohol use, denies drug use Current Medications: Current Medications Current Medications Ondansetron HCl (Zofran) 4 mg 1X ONCE IVP Last administered on 11/10/20at 16:20; Start 11/10/20 at 14:15; Stop 11/10/20 at 14:16; Status DC Amiodarone HCl (Cordarone) 200 mg DAILY PO ; Start 11/11/20 at 09:00 Aspirin (Aspirin Chewable) 81 mg DAILY PO ; Start 11/11/20 at 09:00 Furosemide (Lasix) 40 mg DAILY PO ; Start 11/11/20 at 09:00 Lorazepam (Ativan) 0.5 mg PRN TID PRN PO ANXIETY / AGITATION; Start 11/10/20 at 16:15 Metoprolol Succinate (Toprol Xl) 75 mg DAILY PO ; Start 11/11/20 at 09:00 Sacubitril/ Valsartan (Entresto 24 Mg-26 Mg) 1 tab BID PO ; Start 11/10/20 at 21:00 Sertraline HCl (Zoloft) 25 mg DAILY PO ; Start 11/11/20 at 09:00 Non-Formulary Medication (Fluticasone/ Salmeterol (Advair 250-50 Diskus)) 1 puff BID IH ; Start 11/10/20 at 21:00; Status UNV Pantoprazole Sodium (Protonix) 40 mg DAILYAC PO ; Start 11/11/20 at 07:30 Non-Formulary Medication (Tiotropium Eddy (Spiriva)) 1 cap DAILY IH ; Start 11/11/20 at 09:00; Status UNV Ondansetron HCl (Zofran) 4 mg PRN Q6HRS PRN IVP NAUSEA/VOMITING; Start 11/10/20 at 16:15 Calcium Carbonate/ Glycine (Tums) 500 mg PRN Q3HRS PRN PO UPSET STOMACH; Start 11/10/20 at 16:15 Zolpidem Tartrate (Ambien) 5 mg PRN QHS PRN PO INSOMNIA, MAY REPEAT IN 1HR; Start 11/10/20 at 16:15 Info (Non-Icu Electrolyte Protocol) 1 ea PRN DAILY PRN MC SEE COMMENTS; Start 11/10/20 at 16:15 Oxycodone HCl (Roxicodone) 5 mg PRN Q3HRS PRN PO BREAKTHROUGH PAIN; Start 11/10/20 at 16:15 Oxycodone/ Acetaminophen (Percocet 5/325) 1 tab PRN Q4HRS PRN PO MILD PAIN, 1ST CHOICE; Start 11/10/20 at 16:15 Oxycodone/ Acetaminophen (Percocet 5/325) 2 tab PRN Q4HRS PRN PO MODERATE PAIN, SEVERE PAIN; Start 11/10/20 at 16:15 Acetaminophen (Tylenol) 650 mg PRN Q6HRS PRN PO Headaches, Temp > 101.5F; Start 11/10/20 at 16:15 Senna/Docusate Sodium (Senna Plus) 1 tab BID PO ; Start 11/10/20 at 21:00 Enoxaparin Sodium (Lovenox 40mg Syringe) 40 mg Q24H SQ ; Start 11/10/20 at 21:00 Albuterol/ Ipratropium (Duoneb) 3 ml RTQID NEB ; Start 11/10/20 at 20:00 Budesonide (Pulmicort) 0.5 mg RTBID NEB ; Start 11/10/20 at 20:00 Active Scripts Active Ativan (Lorazepam) 0.5 Mg Tablet 0.5 Mg PO TID PRN 28 Days Amiodarone Hcl 200 Mg Tablet 200 Mg PO DAILY 30 Days Dicyclomine Hcl 10 Mg Capsule 10 Mg PO PRN QID PRN 14 Days Spiriva (Tiotropium Eddy) 18 Mcg Cap.w.dev 1 Cap IH DAILY 30 Days Entresto 24 mg-26 mg Tablet (Sacubitril/Valsartan) 1 Each Tablet 1 Each PO BID 30 Days Advair 250-50 Diskus (Fluticasone/Salmeterol) 1 Each Disk.w.dev 1 Puff IH BID 30 Days Zoloft (Sertraline Hcl) 25 Mg Tablet 1 Tab PO DAILY 30 Days Protonix (Pantoprazole Sodium) 20 Mg Tablet.dr 2 Tab PO DAILY 30 Days Toprol XL (Metoprolol Succinate) 50 Mg Tab.er.24h 75 Mg PO DAILY 30 Days Furosemide 40 Mg Tablet 1 Tab PO DAILY 30 Days Reported Aspirin 81 Mg Tab.chew 1 Tab PO DAILY ROS: Review of Systems Review of System Negative unless noted in HPI 11-13 covid neg abdominal discomfort, nausea new 11-03 ct Gallbladder wall thickening and pericholecystic fluid, which could represent acute cholecystitis. No radiopaque stones are seen by CT. Correlate with laboratory values. If there is persistent concern for choledocholithiasis, MRI could be obtained. GI CONSULTED SONO ORDERED, NPO The common duct is mildly dilated and contains some echogenic material. This may reflect artifact or choledocholithiasis. ON ultrasound /MRCP could further evaluate if the diagnosis is unclear. A. fib, CAD, CHF 25% ejection fraction Patient recently admitted for A. fib, ejection fraction around 25% / biventricular ICD/[employer]-D implantation. Device check / normal function. Discharged however was unable to mixing picker tender most of his medications; symptoms have only worsened since that discharge she says fluid overloaded on presentation shortness of breath on presentation check Covid resume home medications as they were prescribed at recent discharge. Consult cardiology Cardiac diet Smoking cessation encouraged / provided Has not been on his PPI / contributes to his PAIN surgery consult 11-12 labs pending covid neg abdominal discomfort, nausea new 11-03 ct Gallbladder wall thickening and pericholecystic fluid, which could represent acute cholecystitis. No radiopaque stones are seen by CT. Correlate with laboratory values. If there is persistent concern for choledocholithiasis, MRI could be obtained. GI CONSULTED SONO ORDERED, NPO A. fib, CAD, CHF 25% ejection fraction Patient recently admitted for A. fib, ejection fraction around 25% / biventricular ICD/[employer] implantation. Device check / normal function. Discharged however was unable to mixing picker tender most of his medications; symptoms have only worsened since that discharge she says fluid overloaded on presentation shortness of breath on presentation check Covid resume home medications as they were prescribed at recent discharge. Consult cardiology Cardiac diet Smoking cessation encouraged / provided Has not been on his PPI / contributes to his PAIN 9- positive anti-HCV antibody--need to confirm with PCR assay as too many false positives. Right heart cath noted. Continue diuresis Elevated right and left-sided filling pressures RIGHT HEART CATH 9-17 No evidence of intracardiac shunt Aggressive diuresis with inotropic support covid neg abdominal discomfort, nausea new 11-03 ct Gallbladder wall thickening and pericholecystic fluid, which could represent acute cholecystitis. No radiopaque stones are seen by CT. Correlate with laboratory values. If there is persistent concern for choledocholithiasis, MRI could be obtained. GI CONSULTED SONO ORDERED,try reg diet The common duct is mildly dilated and contains some echogenic material. This may reflect artifact or choledocholithiasis. ON ultrasound /MRCP could further evaluate if the diagnosis is unclear. A. fib, CAD, CHF 25% ejection fraction Patient recently admitted for A. fib, ejection fraction around 25% / biventricular ICD/[employer]-D implantation. Device check / normal function. Discharged however was unable to mixing picker tender most of his medications; symptoms have only worsened since that discharge she says fluid overloaded on presentation shortness of breath on presentation check Covid resume home medications as they were prescribed at recent discharge. Consult cardiology Cardiac diet Smoking cessation encouraged / provided Has not been on his PPI / contributes to his PAIN surgery consult nonsurgical abdomen D/W RN 11-11 labs pending covid neg A. fib, CAD, CHF 25% ejection fraction Patient recently admitted for A. fib, ejection fraction around 25% / biventricular ICD/[employer]-D implantation. Device check / normal function. Discharged however was unable to mixing picker tender most of his medications; symptoms have only worsened since that discharge she says fluid overloaded on presentation shortness of breath on presentation check Covid resume home medications as they were prescribed at recent discharge. Consult cardiology Cardiac diet Smoking cessation encouraged / provided 11-14 covid neg abdominal discomfort, nausea new 11-03 ct Gallbladder wall thickening and pericholecystic fluid, which could represent acute cholecystitis. No radiopaque stones are seen by CT. Correlate with laboratory values. If there is persistent concern for choledocholithiasis, MRI could be obtained. GI CONSULTED SONO ORDERED,try clears The common duct is mildly dilated and contains some echogenic material. This may reflect artifact or choledocholithiasis. ON ultrasound /MRCP could further evaluate if the diagnosis is unclear. A. fib, CAD, CHF 25% ejection fraction Patient recently admitted for A. fib, ejection fraction around 25% / biventricular ICD/[employer]-D implantation. Device check / normal function. Discharged however was unable to mixing picker tender most of his medications; symptoms have only worsened since that discharge she says fluid overloaded on presentation shortness of breath on presentation check Covid resume home medications as they were prescribed at recent discharge. Consult cardiology Cardiac diet Smoking cessation encouraged / provided Has not been on his PPI / contributes to his PAIN surgery consult nonsurgical abdomen D/W DR GARCIA IN [place] 11-16 positive anti-HCV antibody--need to confirm with PCR assay as too many false positives. Right heart cath noted. Continue diuresis Elevated right and left-sided filling pressures RIGHT HEART CATH 11-15 No evidence of intracardiac shunt Aggressive diuresis with inotropic support covid neg abdominal discomfort, nausea new 11-03 ct Gallbladder wall thickening and pericholecystic fluid, which could represent acute cholecystitis. No radiopaque stones are seen by CT. Correlate with laboratory values. If there is persistent concern for choledocholithiasis, MRI could be obtained. GI CONSULTED SONO ORDERED,try reg diet The common duct is mildly dilated and contains some echogenic material. This may reflect artifact or choledocholithiasis. ON ultrasound /MRCP could further evaluate if the diagnosis is unclear. A. fib, CAD, CHF 25% ejection fraction Patient recently admitted for A. fib, ejection fraction around 25% / biventricular ICD/[employer]-D implantation. Device check / normal function. Discharged however was unable to mixing picker tender most of his medications; symptoms have only worsened since that discharge she says fluid overloaded on presentation shortness of breath on presentation check Covid resume home medications as they were prescribed at recent discharge. Consult cardiology Cardiac diet Smoking cessation encouraged / provided Has not been on his PPI / contributes to his PAIN surgery consult nonsurgical abdomen D/W RN 11-15 Elevated right and left-sided filling pressures RIGHT HEART CATH 11-15 No evidence of intracardiac shunt Aggressive diuresis with inotropic support covid neg abdominal discomfort, nausea new 11-03 ct Gallbladder wall thickening and pericholecystic fluid, which could represent acute cholecystitis. No radiopaque stones are seen by CT. Correlate with laboratory values. If there is persistent concern for choledocholithiasis, MRI could be obtained. GI CONSULTED SONO ORDERED,try clears The common duct is mildly dilated and contains some echogenic material. This may reflect artifact or choledocholithiasis. ON ultrasound /MRCP could further evaluate if the diagnosis is unclear. A. fib, CAD, CHF 25% ejection fraction Patient recently admitted for A. fib, ejection fraction around 25% / biventricular ICD/[employer]-D implantation. Device check / normal function. Discharged however was unable to mixing picker tender most of his medications; symptoms have only worsened since that discharge she says fluid overloaded on presentation shortness of breath on presentation check Covid resume home medications as they were prescribed at recent discharge. Consult cardiology Cardiac diet Smoking cessation encouraged / provided Has not been on his PPI / contributes to his PAIN surgery consult nonsurgical abdomen D/W DR GARCIA IN [place] 11-12 labs pending covid neg abdominal discomfort, nausea new 11-03 ct Gallbladder wall thickening and pericholecystic fluid, which could represent acute cholecystitis. No radiopaque stones are seen by CT. Correlate with laboratory values. If there is persistent concern for choledocholithiasis, MRI could be obtained. GI CONSULTED SONO ORDERED, NPO A. fib, CAD, CHF 25% ejection fraction Patient recently admitted for A. fib, ejection fraction around 25% / biventricular ICD/[employer]-D implantation. Device check / normal function. Discharged however was unable to mixing picker tender most of his medications; symptoms have only worsened since that discharge she says fluid overloaded on presentation shortness of breath on presentation check Covid resume home medications as they were prescribed at recent discharge. Consult cardiology Cardiac diet Smoking cessation encouraged / provided Has not been on his PPI / contributes to his PAIN Vitals/I&O Vitals/I&O: Vital Signs Date Time Temp Pulse Resp B/P (MAP) Pulse Ox O2 Delivery O2 Flow Rate FiO2 11/18/20 11:48 77 103/62 11/18/20 11:46 97 Room Air 11/18/20 07:00 97.7 18 97.7 I & O 11/17/20 11/17/20 11/18/20 15:00 23:00 07:00 Intake Total 450 ml 50 ml 300 ml Output Total 2675 ml 475 ml Balance -2225 ml -425 ml 300 ml Physical Exam Physical Exam: GEN: Mild distress HEENT: Normal cephalic, atraumatic, external auditory canals are patent EYES: Extraocular muscles are intact, pupil are equally round and reactive to light and accommodation MUSCULOSKELETAL: Well developed , well nourished, good range of motion ENDOCRINE: No thyromegaly was palpated LYMPHATICS: No cervical chain or axillary nodes were noted HEMATOPOIETIC: No bruising NECK: Supple, no JVD, no thyromegaly was noted LUNGS: Bibasilar crackles HEART: Irregularly irregular, peripheral pulses intact ABDOMEN: MILDLY tender. Positive bowel sounds, no organomegaly, normal bowel sounds EXTREMITIES: Bilateral lower extremity pitting edema NEUROLOGIC: Normal speech and tone. A&O x 3, moves all extremities, no obvious focal deficits PSYCHIATRIC: Normal affect, normal mood. Stable SKIN: No ulcerations or rashes, good skin turgor, no jaundice VASCULAR: Good capillary refill, neurovascular bundle appears to be intact General: Alert, Oriented X3, Cooperative, No acute distress Heart: Regular rate, Normal S1, Normal S2, No murmurs Lungs: Clear Abdomen: Normal bowel sounds, Soft, No tenderness, No hepatosplenomegaly, No masses Extremities: No clubbing, No cyanosis, No edema Skin: No significant lesion Labs Labs: Laboratory Tests Test 11/18/20 04:00 Sodium Level 134 mmol/L (136-145) Potassium Level 3.9 mmol/L (3.5-5.1) Chloride Level 97 mmol/L (98-107) Carbon Dioxide Level 29 mmol/L (21-32) Anion Gap 8 (6-14) Blood Urea Nitrogen 18 mg/dL (8-26) Creatinine 1.1 mg/dL (0.7-1.3) Estimated GFR (Cockcroft-Gault) 69.8 Glucose Level 156 mg/dL (70-99) Calcium Level 8.3 mg/dL (8.5-10.1) Assessment and Plan Assessmemt and Plan Problems Medical Problems: (1) Chest pain Status: Acute (2) Hypoxia Status: Acute A. fib, CAD, k= 5.5 CHF 25% ejection fraction Plan: Planned discharged this afternoon. PRN BiPAP Continue IV Fluid Recheck labs. DVT prophylaxis. Comment Review of Relevant I have reviewed the following items rommel (where applicable) has been applied. Medications: Current Medications Medications (Trade) Dose Ordered Sig/Emma Route PRN Reason Start Time Stop Time Status Last Admin Dose Admin Spironolactone (Aldactone) 25 mg DAILY PO 11/18/20 09:00 11/18/20 11:48 Sacubitril/ Valsartan (Entresto 24 Mg-26 Mg) 1 tab BID PO 11/17/20 21:00 11/18/20 11:48 Justifications for Admission Other Justification AARON KAPOOR III DO Nov 18, 2020 12:16
[2020-11-18] MEDS ORDERED: OXYC1TAB15 PO (12:32)
--- NOTE | 2020-11-18 14:02 | DS ---
DATE OF DISCHARGE: 11/18/2020 ADMITTING DIAGNOSIS: Volume overload. DISCHARGE DIAGNOSES: Resolving acute on chronic systolic, diastolic heart failure, resolving volume overload. CONSULTS: Cardiology. HOSPITAL COURSE: The patient is a pleasant middle-aged male who presented with volume overload. He is noncompliant with his home meds. He states he could not afford to get his prescription refilled after his previous discharge. We admitted the patient and diuresed him. Today, I saw and examined him at his baseline. We plan to discharge. DISPOSITION: Home. ACTIVITY: As tolerated. DIET: Low sodium. DISCHARGE MEDICATIONS: Please see the MRAD. Percocet 5 mg 1 q.4 hours p.r.n., amiodarone 200 daily, aspirin 81 daily, dicyclomine 10 p.r.n. q.i.d., Flonase, Lasix 40 a day, lorazepam 0.5 t.i.d. p.r.n., Protonix 40 a day, Entresto / 1 b.i.d., Zoloft 25 a day, Spiriva. Total time is [address]: RONDA/yohannes TID: [id number]
[2020-11-18] MEDS: METOPROLOL SUCC 24HR ER 25 MG TAB.ER.24H. PO SCH (14:14)
--- NOTE | 2020-11-18 14:18 | NUR ---
SS following up with discharge planning. SS reviewed pt chart and discussed with pt RN. Pt is currently on room air. COVID19 negative. Discharge order on the chart for home with self care. Pt needing assistance with Entresto. SS met with pt and provided 30 day free trial card for Entresto. SS assisted pt with applying for patient assistance for Entresto through the [employer] Patient Assistance Program, ; fax [phone]. SS faxed application and copy of insurance card and script to [employer]. Pt needing to contact [employer] to follow up and provide them with proof of income. Good RX card provided to pt as well. Pt's RN notified.
[2020-11-18 15:00] VITALS: BP 98/67
[2020-11-18] MEDS ORDERED: APIX5TAB PO (15:22)
[2020-11-18] MEDS ORDERED: METO50TA4 PO (15:22)
[2020-11-18] MEDS ORDERED: AMIO200T6 PO (15:22)
[2020-11-18] MEDS ORDERED: SPIR25TA PO (15:23)
--- NOTE | 2020-11-18 16:35 | NUR ---
Discharge Note: RUPERTO JEAN-BAPTISTE W [address] [place] [address] Discharge instructions and discharge home medications reviewed with Patient and a copy given. All questions have been answered and understanding verbalized. The following instructions and handouts were given: discharge instructions, med list, RXs. Discontinued lines and drains: Peripheral IV intact. Patient discharged to Home or Self Care with Family Member via Wheelchair at 1635.
[2020-11-18 22:22] LABS: HCV ULTRA QUANT PCR 196000 IU/mL (.)
== END 2020-11-18 16:45 | disposition home or self-care (01) | DRG 287 ==
LOC: ER 13:46 → 6 SOUTH 16:11
PROVIDERS: ADMIT Student in an Organized Health Care Education/Training Program; ATTEND Student in an Organized Health Care Education/Training Program
PROC: 4A023N6 Measurement of Cardiac Sampling and Pressure, Right Heart, Percutaneous Approach (ICD-10-PCS; principal; 2020-11-15)
PROC: B2111ZZ Fluoroscopy of Multiple Coronary Arteries using Low Osmolar Contrast (ICD-10-PCS; 2020-11-15)
DX: I11.0 Hypertensive heart disease with heart failure (principal); I48.92 Unspecified atrial flutter; N17.9 Acute kidney failure, unspecified; R07.89 Other chest pain; I50.43 Acute on chronic combined systolic (congestive) and diastolic (congestive) heart failure; E78.5 Hyperlipidemia, unspecified; E87.5 Hyperkalemia; F17.200 Nicotine dependence, unspecified, uncomplicated; F41.0 Panic disorder [episodic paroxysmal anxiety]; I25.10 Atherosclerotic heart disease of native coronary artery without angina pectoris; I25.5 Ischemic cardiomyopathy; I48.0 Paroxysmal atrial fibrillation; K21.9 Gastro-esophageal reflux disease without esophagitis; K76.1 Chronic passive congestion of liver; K81.9 Cholecystitis, unspecified; K82.8 Other specified diseases of gallbladder; K83.8 Other specified diseases of biliary tract; R09.02 Hypoxemia; Z20.822 Contact with and (suspected) exposure to COVID-19; Z79.51 Long term (current) use of inhaled steroids; Z79.82 Long term (current) use of aspirin; Z82.49 Family history of ischemic heart disease and other diseases of the circulatory system; Z91.14 Patient's other noncompliance with medication regimen; Z91.19 Patient's noncompliance with other medical treatment and regimen; Z95.810 Presence of automatic (implantable) cardiac defibrillator; Z79.899 Other long term (current) drug therapy
CPT/HCPCS: 36415; 71045; 74022; 76705; 80048; 80053; 83605; 83735; 83880; 84484; 85025; 85027; 86705; 86709; 86803; 87340; 87426; 87522; 93005; 93451; 94640; 94760; 96374; 99152; 99153; C1773; C1894; J1160; J1644; J1650; J1815; J1940; J2250; J2260; J2405; J3010; J3490; J7030; U0003; U0005; 99285-25; G0378